=== PATIENT | female | born 1985 | race Caucasian/White ===

== ENCOUNTER 2020-12-27 11:39 | Emergency (ER) | payer OTHER, SELFPAY ==
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
[2020-12-27 12:07] VITALS: BP 118/73; PULSE 92; RESP 19; TEMP 36.6; O2SAT 98; BMI 28.3
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
[2020-12-27] MEDS: Acetaminophen 325 MG TABLET 975 MG PO (13:58)
[2020-12-27] MEDS: Cyclobenzaprine HCl 10 MG TABLET PO (14:58)
[2020-12-27 15:30] VITALS: RESP 18
== END 2020-12-27 15:31 | disposition home or self-care (01) ==
PROVIDERS: Emergency Provider Emergency Medicine; PCP Internal Medicine
DX: S93.401A Sprain of unspecified ligament of right ankle, initial encounter (principal); S06.0X0A Concussion without loss of consciousness, initial encounter; G44.309 Post-traumatic headache, unspecified, not intractable; M54.2 Cervicalgia; M79.604 Pain in right leg; V43.52XA Car driver injured in collision with other type car in traffic accident, initial encounter; Y93.9 Activity, unspecified; Y92.410 Unspecified street and highway as the place of occurrence of the external cause; Y99.9 Unspecified external cause status; Z79.899 Other long term (current) drug therapy
CPT/HCPCS: 29515; 70450; 72125; 73600; 73620; 99284

== ENCOUNTER 2022-10-27 17:57 | Emergency (ER) | payer OTHER, SELFPAY ==
--- NOTE | ~2022-10-27 | XR_ITS ---
EXAMINATION: XR CHEST CLINICAL INFORMATION: Productive cough. COMPARISON: Chest radiograph 05/27/2018. TECHNIQUE: 2 views of the chest were obtained. FINDINGS: Normal appearance of the cardiomediastinal silhouette. Chronic predominantly central bronchial wall thickening. No new focal airspace opacity, pleural effusion or pneumothorax. No acute osseous findings. XR/XR chest 2V IMPRESSION: Chronic bronchial wall thickening which could be seen with a small airways process such as asthma or bronchitis.
[2022-10-27 18:03] VITALS: BP 121/82; PULSE 110; RESP 18; TEMP 36.7; O2SAT 97; BMI 27.3
--- NOTE | 2022-10-27 18:04 | ED_ITS ---
HPI - General Adult General Chief complaint: Upper Respiratory Symptoms Stated complaint: pneumonia, asthma, sob Time Seen by Provider: 10/27/22 18:18 Source: patient Mode of arrival: ambulatory Limitations: no limitations History of Present Illness HPI narrative: 36 yo female with history of asthma, anxiety, GERD here with 3 days of cough, wheezing despite using her albuterol nebulizer at home. No chest pain, fevers, leg swelling/leg pain. +tobacco smoking No recent travel/surgeries/OCP use. No history of hospitalizations or intubations. Using symbicort, albuterol nebulizer prn at home. Related Data Previous Rx's Medication Instructions Recorded ipratropium bromide 17 2 puff inhalation QID #12.9 grams 08/18/20 mcg/actuation HFA aerosol inhaler (Atrovent HFA) albuterol sulfate 90 mcg/actuation 2 puff inhalation Q6H PRN 09/10/20 aerosol inhaler (ProAir HFA) shortness of breath or wheezing #8.5 grams budesonide-formoterol HFA 160 2 puff PO BID #30.6 ea 04/13/22 mcg-4.5 mcg/actuation aerosol inhaler (Symbicort) omeprazole 40 mg capsule,delayed 40 mg PO DAILY #90 caps 04/13/22 release cetirizine 10 mg tablet 10 mg PO DAILY #30 tabs 09/07/22 albuterol sulfate 2.5 mg/3 mL 2.5 mg (3 mL) inhalation Q4H PRN 10/27/22 (0.083 %) solution for nebulization shortness of breath or wheezing #90 mL prednisone 20 mg tablet 60 mg PO DAILY #12 tabs 10/27/22 Allergies Allergy/AdvReac Type Severity Reaction Status Date / Time Sulfa (Sulfonamide Allergy Severe SHORTNESS Verified 09/10/20 13:19 Antibiotics) OF BREATH, [SULFA(SULFONAMIDE SWELLING ANTIBIOTICS)] ALL OVER, anaphylaxis bee pollen [BEE STINGS] Allergy Unknown SWELLING Verified 09/10/20 13:19 mushroom [MUSHROOM] Allergy Unknown ANAPHYLAXIS Verified 09/10/20 13:19 RAISIN Allergy Intermediate HIVES, Uncoded 09/10/20 13:19 THROAT SWELLING bees Allergy Unknown anaphylaxis Uncoded 09/10/20 13:19 mushrooms Allergy Unknown anaphylaxis Uncoded 09/10/20 13:19 raisins Allergy Unknown anaphylaxis Uncoded 09/10/20 13:19 Review of Systems Review of Systems: Yes all other systems are reviewed and are negative Constitutional: Constitutional: Reports no additional constitutional complaints, Denies body ache(s), Denies chills, Denies fever(s), Denies headache(s) and Denies weakness Eyes: Eyes: Reports no additional eye complaints and Denies change in vision ENT: Reports system reviewed and no additional complaints, except as documented, Denies dizziness, Denies headache(s), Denies nasal congestion, Denies nasal discharge and Denies neck pain Cardiovascular: Cardiovascular: Reports no additional cardiovascular complaints, Denies chest pain, Denies leg edema and Denies dyspnea Respiratory: Respiratory: Reports no additional respiratory complaints, Reports cough, Denies dyspnea and Reports wheezing Gastrointestinal: Gastrointestinal: Reports no additional gastrointestinal complaints, Denies abdominal pain, Denies diarrhea, Denies nausea and Denies vomiting Genitourinary: Genitourinary: Reports no additional female genitourinary c omplaints and Denies urinary incontinence Musculoskeletal: Musculoskeletal: Reports no additional musculoskeletal complaints, Denies back pain, Denies arthralgias, Denies joint swelling, Denies neck pain, Denies numbness and Denies tingling Integumentary/Breasts: Skin/Breast: Reports system reviewed and no additional complaints, except as docu and Denies rash Neurologic: Reports system reviewed and no additional complaints, except as documented, Denies dizziness, Denies headache(s), Denies numbness, Denies tingling and Denies weakness Allergic/Immunologic: Allergic/Immunologic: Reports wheezing PMFSH Past Medical History Attestation statement: The following information was validated with the patient. Source: old records reviewed and nursing notes reviewed Medical History Asthma Surgical History Tubal ligation status Social History Social History Advance Directives: No Advance Directives Information Provided: No Physical Exam ED Vital Signs: Vital Signs - 24 hr 10/27/22 18:03 10/27/22 19:57 Temperature 98.1 F Pulse Rate 110 H 87 Respiratory Rate 18 18 Blood Pressure 121/82 Pulse Oximetry 97 Oxygen Delivery Method Room Air BMI result Body Mass Index 27.3 Const General: cooperative, healthy appearing, comfortable and no acute distress Orientation/consciousness: patient oriented x3 Limitations: no limitations HENMT Head: Yes normal to inspection Ears: hearing grossly normal bilaterally and TM's normal bilaterally Throat: Yes posterior oropharynx normal, Yes tonsils normal and Yes uvula midline Eyes General: appearance normal, both eyes and all related structures Pupils: Equal, round and reactive pupils present Neck Neck: Yes normal visual inspection, Yes full ROM, Yes no lymphadenopathy and Yes no meningeal signs Chest Chest palpation & inspection: normal inspection of the chest Resp Effort & Inspection: normal respiratory effort Auscultation: wheezes Cardio Rate: tachycardic (110) Rhythm: regular rhythm Peripheral pulses: Peripheral pulses 2+ throughout GI Inspection: Yes normal to inspection Skin General skin exam: no rashes or lesions noted Neuro General: patient oriented x3, moves all extremities and no meningeal signs Cranial nerves: Yes Equal, round and reactive pupils present Cognition (Neuro): normal cognition Gait exam (Neuro): Normal gait present Extrem General: Yes normal to inspection, Yes no pedal edema and Yes no calf tenderness Course Course Course Narrative: This is a rapid medical exam: Additional HPI, ROS, PE not included below will be deferred to primary provider. Patient is a 36-year-old female with history of asthma presenting to the emergency department with complaint of productive cough and shortness of breath for the past several days. Reports chills. Has used nebulizer with some relief. Very minimal wheezing on auscultation. Plan: flu/covid, CXR Reevaluation(s) Reevaluation #1: 1900-sign out to get HA pending re-eval psot treatment Reevaluation #2: Wheezing decreased following treatment, patient reports symptomatic improvement. Covid and flu negative, chronic bronchial wall thickening on CXR. Time: 20:07 Medications Administered Discontinued Medications Generic Name Dose Route Start Last Admin Trade Name Freq PRN Reason Stop Dose Admin Albuterol/Ipratropium 3 ml 10/27/22 18:43 10/27/22 19:54 Albuterol/Iprat 2.5/0.5mg 3 Ml Ampul.Neb INHALE 10/27/22 18:44 3 ml ONCE ONE Administration Prednisone 60 mg 10/27/22 18:43 10/27/22 18:49 Prednisone 20 Mg Tablet PO 10/27/22 18:44 60 mg ONCE ONE Administration Medical Decision Making Medical Decision Making MDM Narrative: 36 yo female with history of asthma, tobacco use here with complaints of cough, wheezing x 3 despite using albuterol nebulizer at home. No chest pain, fevers, chills, leg swelling/leg pain. On arrival saturations stable, oxygen normal. +wheezing throughout with frequent cough. will check CXR, covid/flu testing Will give duoneb, oral pred Differential Diagnosis Differential Diagnoses: The differential diagnosis associated with the presentation includes asthma exacerbation viral syndrome influenza low concern for PE-no clinical findings concern for DVT, no hypoxia or tachypnea, no risk factors Lab Data MDM Lab Attestation statement: I reviewed the patient's lab results. Neg Covid/flu Labs: Lab Results 10/27/22 10/27/22 Range/Units 18:23 18:23 COVID-19 (ZAMZAM) Negative (Negative) COVID-19 Clin Com See Note Influenza Type A (MADDI) Negative (Negative) Influenza Type B (MADDI) Negative (Negative) Influenza A & B Note See Note Independent Interpretation I performed an independent interpretation of an: Plain X-Ray Interpretation: II in dependently reviewed the xray and agree with the rad report Radiology Impression Discussion of test interpretation with radiology: I have reviewed the radiologist's reading. Radiologist Impression: TECHNIQUE: 2 views of the chest were obtained. FINDINGS: Normal appearance of the cardiomediastinal silhouette. Chronic predominantly central bronchial wall thickening. No new focal airspace opacity, pleural effusion or pneumothorax. No acute osseous findings. XR/XR chest 2V IMPRESSION: Chronic bronchial wall thickening which could be seen with a small airways process such as asthma or bronchitis. ? External Record Review External record reviewed: Inpatient record, Office record and Outpatient record Prescription Management I considered prescription management with: Other Discharge Plan Discharge Clinical Impression: Asthma exacerbation Patient Disposition: Home, Self-Care Instructions: Asthma (ED), How to Use a Nebulizer (ED) Additional Instructions: Your covid/flu testing are negative increase fluids, rest start prednisone tomorrow continue your asthma medications follow-up with your PCP as needed Prescriptions: New prednisone 20 mg tablet 60 mg PO DAILY Qty: 12 0RF albuterol sulfate 2.5 mg /3 mL (0.083 %) solution for nebulization 2.5 mg inhalation Q4H PRN (Reason: shortness of breath or wheezing) Qty: 90 0RF No Action Atrovent HFA 17 mcg/actuation HFA aerosol inhaler 2 puff inhalation QID Qty: 12.9 2RF omeprazole 40 mg capsule,delayed release(DR/EC) 40 mg PO DAILY Qty: 90 3RF budesonide-formoterol [Symbicort] 160-4.5 mcg/actuation HFA aerosol inhaler 2 puff PO BID Qty: 30.6 4RF cetirizine 10 mg tablet 10 mg PO DAILY Qty: 30 11RF albuterol sulfate [ProAir HFA] 90 mcg/actuation HFA aerosol inhaler 2 puff inhalation Q6H PRN (Reason: shortness of breath or wheezing) Qty: 8.5 2RF Referrals: Hector Francois MD [Primary Care Provider] - 1 week
[2022-10-27] MEDS: predniSONE 20 MG TABLET 60 MG PO (18:49)
[2022-10-27 18:51] LABS: IDNOW Serial# BCCEAD1C; Influenza A Negative (Negative); Influenza B2 Negative (Negative)
[2022-10-27 18:52] LABS: COVID-19 Test Negative (Negative); IDNOW Serial# 08D9AD1C
[2022-10-27] MEDS: Albuterol/Iprat 2.5/0.5MG 3 ML AMPUL.NEB INHALE (19:54)
[2022-10-27 19:57] VITALS: PULSE 87; RESP 18; O2SAT 98
[2022-10-27 20:25] VITALS: BP 116/77; PULSE 111; RESP 14; TEMP 36.7; O2SAT 97
--- NOTE | 2022-10-27 20:27 | PC.NURSE ---
Pt aox4 resting at the bedside. Completed duoneb tx with RT. No apparent distress noted. VSS. Reports no pain. Discharge instructions reviewed with pt. Pt verbalizes understanding.
== END 2022-10-27 20:28 | disposition home or self-care (01) ==
PROVIDERS: Registered Nurse Emergency; Emergency Provider Emergency Medicine; PCP Family Medicine
DX: J45.901 Unspecified asthma with (acute) exacerbation (principal); Z20.822 Contact with and (suspected) exposure to COVID-19
CPT/HCPCS: 71046; 87502; 87635; 94640; 99284; 99285

== ENCOUNTER 2022-11-13 14:13 | Outpatient (AMB) | payer OTHER, SELFPAY ==
--- NOTE | 2022-11-13 14:57 | AM.OFFWIN_ITS ---
Intake Vital Signs 11/13/22 15:06 Weight 153 lb BP 120/84 Blood Pressure Location Lt brachial Position Sitting Pulse 98 Pulse Source Pulse Oximeter Temp 97.6 F Temp Source Temporal Artery Scan Pulse Oximetry (%) 100 Oxygen Delivery Method Room Air Intake Visit Reasons: Left ankle swelling (3 days) [phone] Intake Note: Patient here for left leg swelling that has been present for about 2 days. No known injuries. Allergies Sulfa (Sulfonamide Antibiotics) [SULFA(SULFONAMIDE ANTIBIOTICS)] Allergy (Severe, Verified 11/13/22 15:27) SHORTNESS OF BREATH, SWELLING ALL OVER, anaphylaxis bee pollen [BEE STINGS] Allergy (Unknown, Verified 11/13/22 15:27) SWELLING mushroom [MUSHROOM] Allergy (Unknown, Verified 11/13/22 15:27) ANAPHYLAXIS RAISIN Allergy (Intermediate, Uncoded 11/13/22 15:27) HIVES, THROAT SWELLING bees Allergy (Unknown, Uncoded 11/13/22 15:27) anaphylaxis mushrooms Allergy (Unknown, Uncoded 11/13/22 15:27) anaphylaxis raisins Allergy (Unknown, Uncoded 11/13/22 15:27) anaphylaxis Medication List - Last Reconciled 11/13/22 by Chucky Church MD albuterol sulfate 2.5 mg (3 mL) inhalation Q4H PRN albuterol sulfate 90 mcg/actuation (ProAir HFA) 2 puffs inhalation Q6H PRN Do you need a note to return to daycare/school/sports/work: No HPI Left ankle swelling (3 days) [phone] HPI Details 36-year-old female presents to the office for a sick visit. Patient is complaining of pain in the left ankle. Symptoms started a few days ago. Difficulty while walking and bearing weight on the left leg. [facility] Medical History Asthma Surgical History Tubal ligation status Physical Exam Vital Signs: Last Vital Signs Temp 97.6 F 11/13/22 15:06 Pulse 98 11/13/22 15:06 BP 120/84 11/13/22 15:06 Pulse Ox 100 11/13/22 15:06 Oxygen Delivery Method Room Air 11/13/22 15:06 Extrem Other: Left leg: Ankle: Swelling present. Pain on flexion and extension of the ankle. Assessment & Plan Assessment & Plan (1) Left ankle sprain: Code(s): S93.402A - Sprain of unspecified ligament of left ankle, initial encounter Plan X-ray images personally reviewed by me. Shawn wrap provided. Meloxicam prescribed. If symptoms not better to follow-up here. Orders: Orders XR ankle LT min 3V Today S93.402A - Sprain of unspecified ligament of left ankle, initial encounter Coding Level of Care Code Est Pt Level 4 (56947) Diagnoses Left ankle sprain S93.402A
[2022-11-13 15:06] VITALS: BP 120/84; PULSE 98; TEMP 36.4; O2SAT 100
== END 2022-11-13 15:59 | disposition home or self-care (01) ==
PROVIDERS: PCP Family Medicine; Visit Provider Internal Medicine
DX: S93.402A Sprain of unspecified ligament of left ankle, initial encounter (principal)
CPT/HCPCS: 99214

== ENCOUNTER 2022-11-13 15:28 | Outpatient (REF) | payer OTHER, SELFPAY ==
--- NOTE | ~2022-11-13 | XR_ITS ---
EXAMINATION: XR ANKLE, LEFT CLINICAL INFORMATION: Sprain of unspecified ligament of left ankle, initial encounter COMPARISON: None available. TECHNIQUE: AP, lateral, and mortise views of the left ankle. FINDINGS: No fracture. Alignment is anatomic. No erosions. Joint spaces are maintained. No joint effusion. Mild soft tissue swelling. XR/XR ankle LT min 3V IMPRESSION: Mild soft tissue swelling. No fracture.
== END 2022-11-13 15:29 | disposition home or self-care (01) ==
LOC: HO.HMGCX 15:28
PROVIDERS: Visit Provider Internal Medicine
DX: S93.402A Sprain of unspecified ligament of left ankle, initial encounter (principal)
CPT/HCPCS: 73610

== ENCOUNTER 2023-01-13 13:09 | Outpatient (AMB) | payer OTHER, SELFPAY ==
--- NOTE | 2023-01-13 13:10 | AM.OFFWIN_ITS ---
Intake Vital Signs 01/13/23 13:13 Height 5 ft 3 in Weight 65.771 kg BMI 25.7 BP 120/80 Blood Pressure Location Rt brachial Position Sitting Pulse 90 Pulse Source Pulse Oximeter Temp 97.8 F Temp Source Temporal Artery Scan Pulse Oximetry (%) 99 Oxygen Delivery Method Room Air Intake Visit Reasons: EP, Left hand swelling Intake Note: Pt is here today c/o Lt hand swollen due to hitting it on something last night Allergies Sulfa (Sulfonamide Antibiotics) [SULFA(SULFONAMIDE ANTIBIOTICS)] Allergy (Severe, Verified 01/13/23 13:10) SHORTNESS OF BREATH, SWELLING ALL OVER, anaphylaxis bee pollen [BEE STINGS] Allergy (Unknown, Verified 01/13/23 13:10) SWELLING mushroom [MUSHROOM] Allergy (Unknown, Verified 01/13/23 13:10) ANAPHYLAXIS RAISIN Allergy (Intermediate, Uncoded 01/13/23 13:10) HIVES, THROAT SWELLING bees Allergy (Unknown, Uncoded 01/13/23 13:10) anaphylaxis mushrooms Allergy (Unknown, Uncoded 01/13/23 13:10) anaphylaxis raisins Allergy (Unknown, Uncoded 01/13/23 13:10) anaphylaxis HPI HPI Comments History of Present Illness Details 1335 This is a 37 yo f hx of asthma presenting w/ swelling to top of left hand since last night. Thinks she hit it while spinning outside on a holoween promp. Reports pain w/ ROM of all fingers. Denies fevers,chills, numbness, tingling, sob, cp PE w/ swelling to the dorsal aspect of left hand particularly over the 5th metacarpal with associated tenderness to palpation overlying all metacarpals on the left hand. Normal capillary refill to bilateral upper extremity digits. Normal sensation distally. Limited range of motion to fingers 4 and 5 on left side secondary to pain. Fingers 1 through 3 on left side with full range of motion. No wrist drop. No overlying skin changes. Likely sprain, strain or fracture dislocation. Other differentials include inflammatory arthritis, gout. Unlikely neurovascular compromise, threat to [place], arterial or venous occlusion Plan x-ray. Will discharge with prednisone and naproxen. Educated patient on diagnosis and treatment plan, answered all question, patient verbalizes understanding. At this time patient will be discharged home, advised to return with new or worsening symptoms. Educated on worrisome signs and symptoms and when to return. At this time I feel comfortable discharge home. [facility] Medical History Asthma Surgical History Tubal ligation status Review of Systems Const Details: Constitutional : No Weight loss, No Fever, No Chills, No Fatigue, No Malaise ENT/Mouth : No sore throat, No Rhinorrhea Eyes: No Eye Pain, No Swelling, No Redness Cardiovascular : No Chest Pain, No SOB, No Dyspnea on Exertion, No Orthopnea, No Edema, No Palpitations Respiratory : No Cough, No Sputum, No Wheezing Gastrointestinal : No Nausea, No Vomiting, No Diarrhea, No Constipation, No abdominal Pain, No Hematochezia, No Melena Genitourinary : No Dysuria, No Urinary Frequency, No Hematuria, Musculoskeletal : + joint pain, No Myalgias, + Joint Swelling Skin : No Skin Lesions, No rash Neuro : No Weakness, No Numbness, No Dizziness, No Headache Psych : No Anxiety/Panic, No Depression All other systems reviewed and are negative All systems reviewed & are unremarkable except as noted in HPI and below Physical Exam Vital Signs: Last Vital Signs Temp 97.8 F 01/13/23 13:13 Pulse 90 01/13/23 13:13 BP 120/80 01/13/23 13:13 Pulse Ox 90 L 01/13/23 13:13 Oxygen Delivery Method Room Air 01/13/23 13:13 BMI result Body Mass Index 25.7 vss Appearance: Alert.? Oriented X3.? No acute distress.? Head: Normocephalic, atraumatic, no step-offs or deformities Eyes: Pupils equal, round and reactive to light.? CVS: Pulses normal.? Respiratory: No respiratory distress.? Skin: Skin warm and dry.? Normal skin color.? Normal skin turgor.? Extremities: No lower extremity edema.? No calf ttp. 5/5 strength to bilateral upper and lower extremities +swelling to the dorsal aspect of left hand particularly over the 5th metacarpal with associated tenderness to palpation overlying all metacarpals on the left hand. Normal capillary refill to bilateral upper extremity digits. Normal sensation distally. Limited range of motion to fingers 4 and 5 on left side secondary to pain. Fingers 1 through 3 on left side with full range of motion. No wrist drop. No overlying skin changes. Neuro: Oriented X 3.? No motor deficit.? No sensory deficit. Assessment & Plan Assessment & Plan (1) Hand pain, left: Code(s): M79.642 - Pain in left hand Plan Take your medications as prescribed. If you were prescribed antibiotics today, it is important that you take your medication to their entirety, do not skip any doses, do not finish them early. Follow-up with your primary care provider this week. Return to the emergency department with new or worsening symptoms. Such as fevers, chills, chest pain, shortness of breath, nausea, vomiting, dizziness, headache, vision changes, lethargy In case of emergency call 911 Orders: Orders XR hand LT 2V Today M79.642 - Pain in left hand Medications: New prednisone 40 mg (2 x 20 mg) PO DAILY 5 days 10 tabs 0RF naproxen 500 mg PO BID PRN 14 tabs 0RF pain Coding Level of Care Code Est Pt Level 3 (11137) Diagnoses Hand pain, left M79.642
[2023-01-13 13:13] VITALS: BP 120/80; PULSE 90; TEMP 36.6; O2SAT 99; BMI 25.7
== END 2023-01-13 14:58 | disposition home or self-care (01) ==
PROVIDERS: PCP Family Medicine; Visit Provider Physician Assistant
DX: M79.642 Pain in left hand (principal)
CPT/HCPCS: 99051; 99213

== ENCOUNTER 2023-01-13 13:32 | Outpatient (REF) | payer OTHER, SELFPAY ==
--- NOTE | ~2023-01-13 | XR_ITS ---
EXAMINATION: XR HAND, LEFT CLINICAL INFORMATION: Pain COMPARISON: None available. TECHNIQUE: Three views of the left hand. FINDINGS: There is deformity of the distal aspect of the fifth metacarpal. This is consistent with a mildly impacted angulated distal metaphyseal fracture. There is overlying soft tissue swelling. No other fracture or subluxation demonstrated. XR/XR hand LT 2V IMPRESSION: No history of trauma provided. Deformity consistent with a mildly impacted angulated distal fifth metacarpal fracture The articular surface is grossly intact
== END 2023-01-13 13:33 | disposition home or self-care (01) ==
LOC: HO.HMGCX 13:32
PROVIDERS: PCP Family Medicine; Visit Provider Physician Assistant
DX: M79.642 Pain in left hand (principal)
CPT/HCPCS: 73120

== ENCOUNTER 2023-01-15 14:51 | Outpatient (AMB) | payer OTHER, SELFPAY ==
--- NOTE | 2023-01-15 14:54 | A.OFFVIS_ITS ---
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 Patient reports having throbbing pain that goes up to her elbow. She states that she punched a wall. Having some tingling on her on the ring finger and pinky finger. 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 The patient presented to the Walk-in clinic on 01/13/2023 status post hitting her left hand on something while she was spinning on a [employer] prop. On 01/12/2023. X-rays of the left hand were obtained. While in the office today the patient reports having a throbbing pain that radiates up to her left elbow. She claims to have some tingling on the ring and pinky digits. She confirms she injured the hand by punching the wall. [facility] Medical History Asthma Surgical History Tubal ligation status Social History (Updated 01/15/23 @ 15:00 by Ashlee Rodriguez) Alcohol intake: current Alcohol intake frequency: does not drink Patient Tobacco Use Status: Current everyday Tobacco user Current occupation: right hand dominant Review of Systems Const All systems reviewed & are unremarkable except as noted in HPI and below Physical Exam Vital Signs: BMI result Body Mass Index 25.7 Const General: cooperative and no acute distress Orientation/consciousness: patient oriented x3 Resp Effort & Inspection: normal respiratory effort and able to speak in complete sentences Cardio Peripheral pulses: Peripheral pulses 2+ throughout Skin General skin exam: no rashes or lesions noted Neuro General: patient oriented x3 Extrem Other: Left hand: Ecchymosis on the dorsal aspect of the middle, ring, and little digits. Able to flex and extend all digits. Lacking 2 cm from making a closed fist with ring and little digits. Sensation intact. Capillary refill is brisk. Office Procedures Casting/Splints 13773-Axut/Wrist Cast Application Procedure code (CPT) selection complete Fracture Care Fracture Billing Code: Fracture Billing Code Assessment & Plan Assessment & Plan (1) Fracture of fifth metacarpal bone of left hand: Code(s): S62.307A - Unspecified fracture of fifth metacarpal bone, left hand, initial encounter for closed fracture Qualifiers: Encounter type: initial encounter Fracture alignment: nondisplaced Fracture type: closed Metacarpal location: unspecified portion of metacarpal Qualified Code(s): S62.307A - Unspecified fracture of fifth metacarpal bone, left hand, initial encounter for closed fracture Plan Ms. Ballard is a 37-year-old right hand dominant female who presents in the office today, as a new patient, for an evaluation of left hand pain. The patient presented to the Walk-in clinic on 01/13/2023 status post hitting her left hand on something while she was spinning on a [employer] prop. On 01/12/2023. X-rays of the left hand were obtained. While in the office today the patient reports having a throbbing pain that radiates up to her left elbow. She claims to have some tingling on the ring and pinky digits. She confirms she injured the hand by punching the wall. The patient was placed in a ulnar gutter cast, custom made, while in the office today. She will follow up in 4 weeks for repeat x-rays with cast off, or sooner if needed. X-rays of the left hand, obtained on 01/13/2023, revealed: 1. No history of trauma provided. 2. Deformity consistent with a mildly impacted angulated distal fifth metacarpal fracture 3. The articular surface is grossly intact Patient Instructions: Scribed for Olivia Harris PA-C by Chanel Alvarado medical care administrator, on 01/15/2023 at 3:09 pm, EST. Coding Level of Care Code New Pt Level 4 (21372) Diagnoses Closed nondisplaced fracture of fifth metacarpal bone of left hand, unspecified portion of metacarpal, initial encounter S62.307A Encounter type: initial encounter Fracture alignment: nondisplaced Fracture type: closed Metacarpal location: unspecified portion of metacarpal CPT Codes Casting - CPT: 84565-Oaeh/Wrist Cast Application ([id number]) Fracture Care - Fracture Billing Code: Fracture Billing Code ([id number])
[2023-01-15 15:00] VITALS: BMI 25.7
== END 2023-01-15 15:47 | disposition home or self-care (01) ==
PROVIDERS: PCP Family Medicine; Visit Provider Physician Assistant
DX: S62.307A Unspecified fracture of fifth metacarpal bone, left hand, initial encounter for closed fracture (principal); W22.09XA Striking against other stationary object, initial encounter
CPT/HCPCS: 26600; 99204

== ENCOUNTER → 2023-01-15 14:51 | Outpatient (BNVA) | payer OTHER, SELFPAY | PROVIDERS: PCP Family Medicine; Visit Provider Physician Assistant | DX: S62.307A Unspecified fracture of fifth metacarpal bone, left hand, initial encounter for closed fracture (principal) | CPT/HCPCS: 26600 ==

== ENCOUNTER 2023-02-06 10:08 | Outpatient (REF) | payer OTHER, SELFPAY | END 2023-02-06 10:09 | disposition home or self-care (01) | LOC: HO.HOSX 10:08 | PROVIDERS: Visit Provider Physician Assistant | DX: Z13.89 Encounter for screening for other disorder (principal) ==

== ENCOUNTER 2023-02-13 09:31 | Outpatient (AMB) | payer OTHER, SELFPAY ==
--- NOTE | 2023-02-13 09:44 | A.OFFVIS_ITS ---
Intake Vital Signs 02/13/23 09:46 Height 5 ft 3 in Weight 145 lb BMI 25.7 Intake Visit Reasons: OV- Lt 5th Metacarpal fx/ xrays Intake Note: Kailey is a 37 year right hand dominant female who present today for a evaluation of her left wrist/hand, DOI 01/12/23. Patient reports having tenderness and pain. Denies numbness and tingling. Allergies Sulfa (Sulfonamide Antibiotics) [SULFA(SULFONAMIDE ANTIBIOTICS)] Allergy (Severe, Verified 02/13/23 09:45) SHORTNESS OF BREATH, SWELLING ALL OVER, anaphylaxis bee pollen [BEE STINGS] Allergy (Unknown, Verified 02/13/23 09:45) SWELLING mushroom [MUSHROOM] Allergy (Unknown, Verified 02/13/23 09:45) ANAPHYLAXIS RAISIN Allergy (Intermediate, Uncoded 01/13/23 13:10) HIVES, THROAT SWELLING bees Allergy (Unknown, Uncoded 01/13/23 13:10) anaphylaxis mushrooms Allergy (Unknown, Uncoded 01/13/23 13:10) anaphylaxis raisins Allergy (Unknown, Uncoded 01/13/23 13:10) anaphylaxis HPI OV- Lt 5th Metacarpal fx/ xrays HPI Details 37-year-old right hand dominant female jessica guy presents in the office today for a follow up of a left hand 5th metacarpal fracture, which occurred on 01/12/2023 status post hitting her left hand on something while she was spinning on a [employer] prop. The patient reports having tenderness and pain. She denies numbness or tingling. [facility] Medical History Asthma Surgical History Tubal ligation status Alcohol intake: current Alcohol intake frequency: does not drink Patient Tobacco Use Status: Current everyday Tobacco user Current occupation: right hand dominant Review of Systems Const All systems reviewed & are unremarkable except as noted in HPI and below Physical Exam Vital Signs: BMI result Body Mass Index 25.7 Const General: cooperative, healthy appearing and no acute distress Resp Effort & Inspection: normal respiratory effort and able to speak in complete sentences Cardio Rate: regular rate Peripheral pulses: Peripheral pulses 2+ throughout GI Palpation (GI): Soft to palpation Skin Lesions: no lesions Rashes: no rashes Extrem Other: Left hand: Normal to inspection. No ecchymosis, erythema, or edema. Tenderness to palpation over the 5th metacarpal head at the fracture site. Lacking about 2 cm from making a closed fist with the little finger. Sensation intact. Capillary refill is brisk. Office Procedures Casting/Splints 62107-Ggsp/Wrist Cast Application Procedure code (CPT) selection complete Assessment & Plan Assessment & Plan (1) Fracture of fifth metacarpal bone of left hand: Code(s): S62.307A - Unspecified fracture of fifth metacarpal bone, left hand, initial encounter for closed fracture Qualifiers: Encounter type: initial encounter Fracture alignment: nondisplaced Fracture type: closed Metacarpal location: unspecified portion of metacarpal Qualified Code(s): S62.307A - Unspecified fracture of fifth metacarpal bone, left hand, initial encounter for closed fracture Plan Ms. Ballard is a 37-year-old right hand dominant female who presents in the office today for a follow up of a left hand 5th metacarpal fracture, which occurred on 01/12/2023 status post hitting her left hand on something while she was spinning on a [employer] prop. The patient reports having tenderness and pain. She denies numbness or tingling. The patient was placed in another ulnar gutter cast, custom made, while in the office today. She will remain under the restrictions of no lifting greater than a coffee cup or cell phone. Follow up will be in 2 weeks with repeat x-rays, or sooner if needed. X-rays of the left hand which were obtained while in the office today and were reviewed by me, Olivia Harris PA-C, revealed routine healing of a left 5th metacarpal fracture. Orders: Orders XR hand LT min 3V Today M79.643 - Pain in unspecified hand Patient Instructions: Scribed for Olivia Harris PA-C by Chanel Alvarado medical records clerk, on 02/13/2023 at 9:33 am, EST. Coding Level of Care Code Global (65730) Diagnoses Closed nondisplaced fracture of fifth metacarpal bone of left hand, unspecified portion of metacarpal, initial encounter S62.307A Encounter type: initial encounter Fracture alignment: nondisplaced Fracture type: closed Metacarpal location: unspecified portion of metacarpal CPT Codes Casting - CPT: 30455-Bucc/Wrist Cast Application ([id number])
[2023-02-13 09:46] VITALS: BMI 25.7
== END 2023-02-13 10:31 | disposition home or self-care (01) ==
PROVIDERS: PCP Family Medicine; Visit Provider Physician Assistant
DX: S62.307D Unspecified fracture of fifth metacarpal bone, left hand, subsequent encounter for fracture with routine healing (principal)
CPT/HCPCS: 29075; 99024

== ENCOUNTER 2023-02-13 12:27 | Outpatient (REF) | payer OTHER, SELFPAY ==
--- NOTE | ~2023-02-13 | XR_ITS ---
EXAMINATION: XR HAND, LEFT CLINICAL INFORMATION: Pain. COMPARISON: Prior radiographs, most recently 01/13/2023. TECHNIQUE: PA, lateral, and oblique views of the left hand. FINDINGS: Bony mineralization is normal. There is a small minus variance. There is stable alignment of a mildly angulated, apex dorsal boxers-type fracture of the left fifth metacarpal neck. There is mild periosteal callus formation. No dislocation is seen. The proximal and distal carpal rows are intact. No focal soft tissue swelling, gas or foreign body is seen. XR/XR hand LT min 3V IMPRESSION: There is stable alignment of a mildly angulated boxers-type fracture of the left fifth metacarpal bone. There is mild periosteal callus formation.
== END 2023-02-13 12:28 | disposition home or self-care (01) ==
LOC: HO.HOSX 12:27
PROVIDERS: Visit Provider Physician Assistant
DX: S62.307D Unspecified fracture of fifth metacarpal bone, left hand, subsequent encounter for fracture with routine healing (principal)
CPT/HCPCS: 73130

== ENCOUNTER 2023-02-26 11:08 | Outpatient (AMB) | payer OTHER, SELFPAY ==
--- NOTE | 2023-02-26 11:17 | A.OFFVIS_ITS ---
Intake Vital Signs 02/26/23 11:18 Height 5 ft 3 in Weight 143 lb BMI 25.3 Intake Visit Reasons: OV- Lt 5th Metacarpal fx/ xrays Intake Note: Kailey 37 yr old female presents today for her follow up visit for her fracture of fifth metacarpal bone of left hand 01/12/23. Cast removed and xrays updated. States she feels a little stiff due to use of cast however she is dong well. Allergies Sulfa (Sulfonamide Antibiotics) [SULFA(SULFONAMIDE ANTIBIOTICS)] Allergy (Severe, Verified 02/26/23 11:24) SHORTNESS OF BREATH, SWELLING ALL OVER, anaphylaxis bee pollen [BEE STINGS] Allergy (Unknown, Verified 02/26/23 11:24) SWELLING mushroom [MUSHROOM] Allergy (Unknown, Verified 02/26/23 11:24) ANAPHYLAXIS RAISIN Allergy (Intermediate, Uncoded 02/26/23 11:24) HIVES, THROAT SWELLING bees Allergy (Unknown, Uncoded 02/26/23 11:24) anaphylaxis mushrooms Allergy (Unknown, Uncoded 02/26/23 11:24) anaphylaxis raisins Allergy (Unknown, Uncoded 02/26/23 11:24) anaphylaxis HPI OV- Lt 5th Metacarpal fx/ xrays HPI Details 37-year-old right hand dominant female jessica guy presents in the office today for a follow up of a left hand 5th metacarpal fracture, which occurred on 01/12/2023 status post hitting her left hand on something while she was spinning on a [employer] prop. She reports some stiffness from being in the cast, but overall she states she is doing well. [facility] Medical History Asthma Surgical History Tubal ligation status Social History Alcohol intake: current Alcohol intake frequency: does not drink Patient Tobacco Use Status: Current everyday Tobacco user Current occupation: right hand dominant Review of Systems Const All systems reviewed & are unremarkable except as noted in HPI and below Physical Exam Vital Signs: BMI result Body Mass Index 25.3 Const General: cooperative, healthy appearing and no acute distress Resp Effort & Inspection: normal respiratory effort and able to speak in complete sentences Cardio Rate: regular rate Peripheral pulses: Peripheral pulses 2+ throughout GI Palpation (GI): Soft to palpation Skin Lesions: no lesions Rashes: no rashes Extrem Other: Left hand: Normal to inspection. Mild edema located over the 5th metacarpal. No erythema. No tenderness to palpation. Lacking about ? cm from making a closed fist. Was able to make a closed fist before leaving the office today. Sensation intact. Capillary refill is brisk. Assessment & Plan Assessment & Plan (1) Fracture of fifth metacarpal bone of left hand: Code(s): S62.307A - Unspecified fracture of fifth metacarpal bone, left hand, initial encounter for closed fracture Qualifiers: Encounter type: initial encounter Fracture alignment: nondisplaced Fracture type: closed Metacarpal location: unspecified portion of metacarpal Qualified Code(s): S62.307A - Unspecified fracture of fifth metacarpal bone, left hand, initial encounter for closed fracture Plan Ms. Ballard is a 37-year-old right hand dominant female who presents in the office today for a follow up of a left hand 5th metacarpal fracture, which occurred on 01/12/2023 status post hitting her left hand on something while she was spinning on a [employer] prop. She reports some stiffness from being in the cast, but overall she states she is doing well. 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 She should remain careful for the next 2-3 weeks to avoid falling or any heavy lifting which might result in re-injury to the left hand. She may return to normal activities as tolerated. Follow up will be PRN, or sooner if needed. X-rays of the left hand which were obtained while in the office today and were reviewed by me, Olivia Harris PA-C, revealed routine healing of a left 5th metacarpal fracture. Orders: Orders XR hand LT min 3V Today M79.643 - Pain in unspecified hand Patient Instructions: Scribed for Olivia Harris PA-C by Chanel Alvarado medical claims processor, on 02/26/2023 at 11:11 am, EST. Coding Level of Care Code Global (17835) Diagnoses Closed nondisplaced fracture of fifth metacarpal bone of left hand, unspecified portion of metacarpal, initial encounter S62.307A Encounter type: initial encounter Fracture alignment: nondisplaced Fracture type: closed Metacarpal location: unspecified portion of metacarpal
[2023-02-26 11:18] VITALS: BMI 25.3
== END 2023-02-26 11:28 | disposition home or self-care (01) ==
PROVIDERS: PCP Family Medicine; Visit Provider Physician Assistant
DX: S62.307A Unspecified fracture of fifth metacarpal bone, left hand, initial encounter for closed fracture (principal)
CPT/HCPCS: 99024

== ENCOUNTER 2023-02-26 15:56 | Outpatient (REF) | payer OTHER, SELFPAY | END 2023-02-26 15:57 | disposition home or self-care (01) | LOC: HO.HOSX 15:56 | PROVIDERS: Visit Provider Physician Assistant | DX: S62.307D Unspecified fracture of fifth metacarpal bone, left hand, subsequent encounter for fracture with routine healing (principal); X58.XXXD Exposure to other specified factors, subsequent encounter | CPT/HCPCS: 99212 ==

== ENCOUNTER 2023-03-01 09:17 | Outpatient (REF) | payer OTHER, SELFPAY ==
--- NOTE | ~2023-03-01 | XR_ITS ---
EXAMINATION: XR HAND, LEFT CLINICAL INFORMATION: Pain. COMPARISON: Radiographs dated 02/13/2023 and 01/13/2023. TECHNIQUE: PA, lateral, and oblique views of the left hand. FINDINGS: Bony alignment and mineralization are normal. There is an ulnar minus variance. There is stable alignment of a mildly angulated, apex dorsal boxer's fracture of the left fifth metacarpal neck. There is again mild periosteal callus noted. No dislocation is seen. The proximal and distal carpal rows are intact. No focal soft tissue swelling, gas or foreign body is noted. XR/XR hand LT min 3V IMPRESSION: There is continued stable alignment of a mildly angulated boxer's-type fracture of the left fifth metacarpal neck. Mild periosteal callus formation is again seen.
== END 2023-03-01 09:18 | disposition home or self-care (01) ==
LOC: HO.HOSX 09:17
PROVIDERS: Visit Provider Physician Assistant
DX: M79.642 Pain in left hand (principal)
CPT/HCPCS: 73130

== ENCOUNTER 2023-04-11 14:14 | Outpatient (AMB) | payer OTHER, SELFPAY ==
[2023-04-11 14:23] VITALS: BP 118/70; PULSE 88; TEMP 36.7; O2SAT 98; BMI 26.6
--- NOTE | 2023-04-11 14:23 | AM.OFFWIN_ITS ---
Intake Vital Signs 04/11/23 14:23 Height 5 ft 3 in Weight 150 lb BMI 26.6 BP 118/70 Blood Pressure Location Lt brachial Position Sitting Pulse 88 Pulse Source Pulse Oximeter Temp 98.0 F Temp Source Temporal Artery Scan Pulse Oximetry (%) 98 Oxygen Delivery Method Room Air Intake Visit Reasons: EP, nausea, vomiting (?) Intake Note: pt is here today nausea vomiting started 2 weeks ago Patient Tobacco Use Status: Current everyday Tobacco user Allergies Sulfa (Sulfonamide Antibiotics) [SULFA(SULFONAMIDE ANTIBIOTICS)] Allergy (Severe, Verified 04/12/23 09:48) SHORTNESS OF BREATH, SWELLING ALL OVER, anaphylaxis bee pollen [BEE STINGS] Allergy (Unknown, Verified 04/12/23 09:48) SWELLING mushroom [MUSHROOM] Allergy (Unknown, Verified 04/12/23 09:48) ANAPHYLAXIS RAISIN Allergy (Intermediate, Uncoded 02/26/23 11:24) HIVES, THROAT SWELLING bees Allergy (Unknown, Uncoded 02/26/23 11:24) anaphylaxis mushrooms Allergy (Unknown, Uncoded 02/26/23 11:24) anaphylaxis raisins Allergy (Unknown, Uncoded 02/26/23 11:24) anaphylaxis Do you need a note to return to daycare/school/sports/work: No [facility], [facility] Medical History (Updated 04/11/23 @ 15:18 by Barbara Etienne PA-C) Asthma Surgical History Tubal ligation status Social History Alcohol intake: current Alcohol intake frequency: does not drink Patient Tobacco Use Status: Current everyday Tobacco user Current occupation: right hand dominant Physical Exam Vital Signs: Last Vital Signs Temp 98.0 F 04/11/23 14:23 Pulse 88 04/11/23 14:23 BP 118/70 04/11/23 14:23 Pulse Ox 98 04/11/23 14:23 Oxygen Delivery Method Room Air 04/11/23 14:23 BMI result Body Mass Index 26.6 Results AMB Test Urine AMB Test Urine Negative Last Edit by Shukri Mcdaniel CMA on 04/11/23 14:33 Results Reviewed Results Reviewed: Laboratory Last Values Tst Clinic Negative 04/11/23 14:32 Assessment & Plan Assessment & Plan (1) Nausea & vomiting: Code(s): R11.2 - Nausea with vomiting, unspecified Plan Patient invited to return for clinical evaluation. Orders: Orders AMB HCG Urine Test 04/11/23 Z13.9 - Encounter for screening, unspecified Coding Level of Care Code Left Without Being Seen Diagnoses Nausea & vomiting R11.2
== END 2023-04-11 15:49 | disposition home or self-care (01) ==
PROVIDERS: PCP Family Medicine; Visit Provider Physician Assistant
DX: Z32.02 Encounter for pregnancy test, result negative (principal)
CPT/HCPCS: 81025

== ENCOUNTER 2023-04-12 09:26 | Outpatient (AMB) | payer OTHER, SELFPAY ==
[2023-04-12 09:47] VITALS: BP 120/78; PULSE 94; TEMP 36.4; O2SAT 98; BMI 26.9
--- NOTE | 2023-04-12 09:47 | MHC.OFFWIV ---
Intake Vital Signs 04/12/23 09:47 Height 5 ft 3 in Weight 152 lb BMI 26.9 BP 120/78 Blood Pressure Location Lt brachial Position Sitting Pulse 94 Pulse Source Pulse Oximeter Temp 97.5 F Temp Source Temporal Artery Scan Pulse Oximetry (%) 98 Oxygen Delivery Method Room Air Intake Visit Reasons: EST/nausea (lobby) Intake Note: pt is here today for nausea started 2 weeks ago Patient Tobacco Use Status: Current everyday Tobacco user Allergies Sulfa (Sulfonamide Antibiotics) [SULFA(SULFONAMIDE ANTIBIOTICS)] Allergy (Severe, Verified 04/12/23 09:48) SHORTNESS OF BREATH, SWELLING ALL OVER, anaphylaxis bee pollen [BEE STINGS] Allergy (Unknown, Verified 04/12/23 09:48) SWELLING mushroom [MUSHROOM] Allergy (Unknown, Verified 04/12/23 09:48) ANAPHYLAXIS RAISIN Allergy (Intermediate, Uncoded 02/26/23 11:24) HIVES, THROAT SWELLING bees Allergy (Unknown, Uncoded 02/26/23 11:24) anaphylaxis mushrooms Allergy (Unknown, Uncoded 02/26/23 11:24) anaphylaxis raisins Allergy (Unknown, Uncoded 02/26/23 11:24) anaphylaxis Do you need a note to return to daycare/school/sports/work: No HPI HPI Comments History of Present Illness Details The patient presents to urgent care for evaluation nausea, abdominal bloating, frequent urination symptoms x2 weeks. She states that she has all the symptoms of however has had several negative tests at home. She had her left tube removed secondary to an ectopic and her right tube was tied years ago. She denies abdominal pain. Denies fever chills URI symptoms no chest pain or shortness of breath. [facility] Medical History (Updated 04/11/23 @ 15:18 by Barbara Etienne PA-C) Asthma Surgical History Tubal ligation status Social History Alcohol intake: current Alcohol intake frequency: does not drink Patient Tobacco Use Status: Current everyday Tobacco user Current occupation: right hand dominant Review of Systems Const Denies weakness Eyes Reports no additional complaints ENT Denies dysphagia Card Reports no additional complaints, Denies dyspnea and Denies dyspnea on exertion Resp Denies cough, Denies hemoptysis, Denies dyspnea and Denies dyspnea on exertion GI Denies dysphagia Musc Reports back pain, Denies muscle weakness, Denies numbness and Denies tingling Neuro Denies focal weakness, Denies numbness, Denies tingling, Denies paresthesias and Denies weakness Physical Exam Vital Signs: Last Vital Signs Temp 97.5 F 04/12/23 09:47 Pulse 94 04/12/23 09:47 BP 120/78 04/12/23 09:47 Pulse Ox 98 04/12/23 09:47 Oxygen Delivery Method Room Air 04/12/23 09:47 BMI result Body Mass Index 26.9 Const General: healthy appearing and no acute distress Orientation/consciousness: patient oriented x3 Eyes General: appearance normal, both eyes and all related structures Pupils: Equal, round and reactive pupils present Resp Effort & Inspection: normal respiratory effort and able to speak in complete sentences GI Other: Abdomen, soft nontender Neuro General: patient oriented x3 and Normal light touch and pain sensation Cranial nerves: Yes Equal, round and reactive pupils present Assessment & Plan Assessment & Plan (1) Nausea & vomiting: Code(s): R11.2 - Nausea with vomiting, unspecified Plan The patient is experiencing symptoms of nausea x2 weeks with increased appetite and sensation of bloating. Etiology unclear though she had a test in the office yesterday which was negative. Will send for some basic blood work. Patient was reassured that I suspect nothing serious is going on at this time. No symptoms of UTI. Will send prescription for Zofran. Patient requesting refills of albuterol pump and nebulizer solution Orders: Orders Complete Blood Count no Diff Today R10.9 - Unspecified abdominal pain Comprehensive Met. Panel Today R10.9 - Unspecified abdominal pain Medications: New ondansetron 4 mg PO Q6-8H PRN 10 tabs 0RF nausea and vomiting albuterol sulfate 90 mcg/actuation (Proair Digihaler) 2 inhalations inhalation Q6H 1 ea 0RF albuterol sulfate 0.63 mg (3 mL) inhalation QID PRN 75 mL 0RF shortness of breath or wheezing Coding Level of Care Code Est Pt Level 3 (70932) Diagnoses Nausea & vomiting R11.2
== END 2023-04-12 10:56 | disposition home or self-care (01) ==
PROVIDERS: PCP Family Medicine; Visit Provider Emergency Medicine
DX: R11.2 Nausea with vomiting, unspecified (principal)
CPT/HCPCS: 99213

== ENCOUNTER 2023-04-12 10:21 | Outpatient (REF) | payer OTHER, SELFPAY ==
[2023-04-12 13:36] LABS: Hematocrit 42.5 % (37.0-47.0); Hemoglobin 13.5 g/dl (12.0-16.0); Mean Corpuscular HGB Conc 31.8 g/dl (31.0-35.0); Mean Corpuscular Hemoglobin 27.4 pg (27.0-33.0); Mean Corpuscular Volume 86.2 fL (80.0-98.0); Mean Platelet Volume 10.4 fL (9.4-12.3); Platelet Count 396 X10*3/uL (160-400); Red Blood Count 4.93 X10*6/uL (4.20-5.50); Red Cell Distribution Width 15.1 % (11.0-16.0); White Blood Count 10.5 X10*3/uL (4.8-10.8)
[2023-04-12 13:51] LABS: Alanine Aminotransferase 33 U/L (0-31); Albumin Level 4.3 g/dL (3.5-5.0); Alkaline Phosphatase 96 U/L (39-117); Anion Gap 12 (12-20); Aspartate Amino Transferase 26 U/L (5-31); Bilirubin Total 0.3 mg/dL (0.0-1.0); Blood Urea Nitrogen 13 mg/dL (9-16); Calcium 9.7 mg/dL (8.4-10.2); Carbon Dioxide 24 mmol/L (22-29); Chloride 106 mmol/L (96-108); Estimated Glomerular Filt Rate > 60; Glucose Random 72 mg/dL (60-115); Potassium 4.2 mmol/L (3.3-5.1); Sodium 138 mmol/L (135-145); Total Protein 7.6 g/dL (6.5-8.0)
== END 2023-04-12 10:22 | disposition home or self-care (01) ==
LOC: HO.HMGCLDS 10:21
PROVIDERS: PCP Family Medicine; Visit Provider Emergency Medicine
DX: R10.9 Unspecified abdominal pain (principal)
CPT/HCPCS: 36415; 80053; 85027

== ENCOUNTER 2023-06-20 09:09 | Outpatient (AMB) | payer OTHER, SELFPAY ==
[2023-06-20 09:47] VITALS: BP 130/80; PULSE 78; TEMP 36.3; O2SAT 97; BMI 27.3
--- NOTE | 2023-06-20 09:47 | AM.OFFWIN_ITS ---
Intake Vital Signs 06/20/23 09:47 Height 5 ft 3 in Weight 154 lb BMI 27.3 BP 130/80 Blood Pressure Location Lt brachial Position Sitting Pulse 78 Pulse Source Pulse Oximeter Temp 97.3 F Temp Source Temporal Artery Scan Pulse Oximetry (%) 97 Oxygen Delivery Method Room Air Intake Visit Reasons: EP Asthma Intake Note: pt is here today for asthma started 3 days ago Patient Tobacco Use Status: Current everyday Tobacco user Allergies Sulfa (Sulfonamide Antibiotics) [SULFA(SULFONAMIDE ANTIBIOTICS)] Allergy (Severe, Verified 06/20/23 09:50) SHORTNESS OF BREATH, SWELLING ALL OVER, anaphylaxis bee pollen [BEE STINGS] Allergy (Unknown, Verified 06/20/23 09:50) SWELLING mushroom [MUSHROOM] Allergy (Unknown, Verified 06/20/23 09:50) ANAPHYLAXIS RAISIN Allergy (Intermediate, Uncoded 02/26/23 11:24) HIVES, THROAT SWELLING bees Allergy (Unknown, Uncoded 02/26/23 11:24) anaphylaxis mushrooms Allergy (Unknown, Uncoded 02/26/23 11:24) anaphylaxis raisins Allergy (Unknown, Uncoded 02/26/23 11:24) anaphylaxis Do you need a note to return to daycare/school/sports/work: No HPI HPI Comments History of Present Illness Details She with sickness x 3 days She denies recent contacts Has hx of asthma Has rescue inhaler, symbicort, atrovent; no refills and doesnt have at home Borrowed mothers nebulizer She said no phlegm She denies fever or chills She said + congestion, ST No ear pain No cough medicine taken [facility] Medical History (Updated 06/20/23 @ 13:13 by Ashley Londono PA-C) Asthma Surgical History Tubal ligation status Social History Alcohol intake: current Alcohol intake frequency: does not drink Patient Tobacco Use Status: Current everyday Tobacco user Current occupation: right hand dominant Review of Systems Const Denies chills, Reports fatigue and Denies fever(s) ENT Denies otalgia, Reports nasal discharge, Reports sore throat and Denies throat swelling Card Denies chest pain and Reports dyspnea Resp Reports cough, Reports dyspnea and Reports wheezing GI Denies abdominal pain Endo Reports fatigue Aller/Immun Denies throat swelling and Reports wheezing Physical Exam Vital Signs: Last Vital Signs Temp 97.3 F 06/20/23 09:47 Pulse 78 06/20/23 09:47 BP 130/80 06/20/23 09:47 Pulse Ox 97 06/20/23 09:47 Oxygen Delivery Method Room Air 06/20/23 09:47 BMI result Body Mass Index 27.3 General: Non-toxic, NAD. Speaking full sentences. Skin: Warm dry throughout Eye: EOMI HENT: Airway patent. Uvula midline. No pharyngeal erythema or edema. No SPOOL SORTER. Bilateral canals clear. TM non-erythematous, non-bulging. No TM perforation or hemotympanum noted. Respiratory: CTA bilaterally. No wheezes, rales or rhonchi Cardiac: RRR. No murmur MSK: Full ROM extremities. Neurology: A. No aphasia or facial droop. Gait without abnormality Psych: Good mood and affect Assessment & Plan Assessment & Plan (1) Upper respiratory infection: Code(s): J06.9 - Acute upper respiratory infection, unspecified Qualifiers: URI type: unspecified viral URI Qualified Code(s): J06.9 - Acute upper respiratory infection, unspecified Plan: Patient seen and evaluated. Lungs CTAGiven refill on nebulizer solution Refilled proair to use as rescue as needed tessalon for cough Call PCP for f/u in 1 week ER with CP or worsening SOB Patient gave verbal understanding and had no additional questions or concerns at time of discharge All questions answered Orders: Orders SARS-CoV2/FLU/RSV Today J06.9 - Acute upper respiratory infection, unspecified Medications: New benzonatate 200 mg PO BID-TID PRN 14 caps 0RF cough albuterol sulfate 90 mcg/actuation 1 puff inhalation QID PRN 8.5 grams 0RF shortness of breath or wheezing Refilled albuterol sulfate 2.5 mg (3 mL) inhalation Q4H PRN 90 mL 0RF shortness of breath or wheezing Coding Level of Care Code Est Pt Level 3 (68153) Diagnoses Viral upper respiratory tract infection J06.9 URI type: unspecified viral URI
== END 2023-06-20 10:15 | disposition home or self-care (01) ==
PROVIDERS: PCP Family Medicine; Visit Provider Physician Assistant
DX: J06.9 Acute upper respiratory infection, unspecified (principal)
CPT/HCPCS: 99213

== ENCOUNTER 2023-06-20 13:23 | Outpatient (REF) | payer OTHER, SELFPAY ==
[2023-06-20 14:34] LABS: Influenza A PCR NEGATIVE (Negative); Influenza B PCR NEGATIVE (Negative); Resp Syncy Virus RNA Qual PCR NEGATIVE (Negative); SARS COV2 PCR INHOUSE NEGATIVE (Negative)
== END 2023-06-20 13:24 | disposition home or self-care (01) ==
LOC: HO.HMGCLNP 13:23
PROVIDERS: Visit Provider Physician Assistant
DX: J06.9 Acute upper respiratory infection, unspecified (principal)
CPT/HCPCS: 0241U

== ENCOUNTER 2023-07-12 16:21 | Emergency (ER) | payer OTHER, SELFPAY ==
--- NOTE | ~2023-07-12 | XR_ITS ---
EXAMINATION: XR CHEST CLINICAL INFORMATION: Reason for Exam cough COMPARISON: Chest radiograph 10/27/2022 TECHNIQUE: One view of the chest FINDINGS: Lines and tubes: None. Clear lungs. No pleural effusion. No pneumothorax. Unchanged cardiomediastinal silhouette. XR/XR chest 1V IMPRESSION: * Clear lungs.
[2023-07-12 16:31] VITALS: BP 124/85; PULSE 138; RESP 20; TEMP 37.2; O2SAT 98; BMI 26.6
--- NOTE | 2023-07-12 16:31 | ED.GENADULT ---
HPI - General Adult General Chief complaint: Dyspnea Stated complaint: asthma,body aches congested cough Time Seen by Provider: 07/12/23 20:07 Related Data Home Medications ?Medication ?Instructions ?Recorded ?Confirmed cetirizine 10 mg tablet 10 mg PO DAILY 06/20/23 norethindrone (contraceptive) 0.35 0.35 mg PO DAILY 06/20/23 mg tablet vortioxetine 10 mg tablet 10 mg PO DAILY 06/20/23 (Trintellix) Previous Rx's ?Medication ?Instructions ?Recorded albuterol sulfate 90 mcg/actuation 2 puff inhalation Q6H PRN 09/10/20 aerosol inhaler (ProAir HFA) shortness of breath or wheezing #8.5 grams albuterol sulfate 0.63 mg/3 mL 0.63 mg (3 mL) inhalation QID PRN 04/12/23 solution for nebulization shortness of breath or wheezing #75 mL albuterol sulfate 90 mcg/actuation 2 inh inhalation Q6H #1 ea 04/12/23 breath activated powder inhaler,sensor (Proair Digihaler) albuterol sulfate 2.5 mg/3 mL 2.5 mg (3 mL) inhalation Q4H PRN 06/20/23 (0.083 %) solution for nebulization shortness of breath or wheezing #90 mL albuterol sulfate 90 mcg/actuation 1 puff inhalation QID PRN 06/20/23 aerosol inhaler shortness of breath or wheezing #8.5 grams benzonatate 200 mg capsule 200 mg PO BID-TID PRN cough #14 06/20/23 caps amoxicillin 875 mg-potassium 1 tab PO BID #14 tabs 07/13/23 clavulanate 125 mg tablet azithromycin 500 mg tablet 500 mg PO DAILY 7 days #7 tabs 07/13/23 prednisone 50 mg tablet 50 mg PO DAILY #4 tabs 07/13/23 albuterol sulfate 0.63 mg/3 mL 0.63 mg (3 mL) inhalation Q4-6H 08/29/23 solution for nebulization PRN shortness of breath or wheezing #75 mL albuterol sulfate 90 mcg/actuation 2 puff inhalation Q6H PRN 08/29/23 aerosol inhaler shortness of breath or wheezing #6.7 grams budesonide-formoterol HFA 80 1 puff inhalation BID #10.2 grams 08/29/23 mcg-4.5 mcg/actuation aerosol inhaler (Symbicort) prednisone 10 mg tablets in a dose 10 mg PO DIRECTED #39 ea 08/29/23 pack Allergies Allergy/AdvReac Type Severity Reaction Status Date / Time Sulfa (Sulfonamide Allergy Severe SHORTNESS Verified 08/29/23 11:34 Antibiotics) OF BREATH, [SULFA(SULFONAMIDE SWELLING ANTIBIOTICS)] ALL OVER, anaphylaxis bee pollen [BEE STINGS] Allergy Unknown SWELLING Verified 08/29/23 11:34 mushroom [MUSHROOM] Allergy Unknown ANAPHYLAXIS Verified 08/29/23 11:34 RAISIN Allergy Intermediate HIVES, Uncoded 08/29/23 11:34 THROAT SWELLING bees Allergy Unknown anaphylaxis Uncoded 08/29/23 11:34 mushrooms Allergy Unknown anaphylaxis Uncoded 08/29/23 11:34 raisins Allergy Unknown anaphylaxis Uncoded 08/29/23 11:34 PMFSH Past Medical History Medical History (Updated 09/27/23 @ 15:09 by LAISHA Green) Asthma Surgical History Tubal ligation status Social History Social History Alcohol intake: current Alcohol intake frequency: holidays/special occasions only Patient Tobacco Use Status: Current everyday Tobacco user Substance Use Type: Marijuana Current occupation: right hand dominant Physical Exam ED Vital Signs: BMI result Body Mass Index 26.6 Course Course Course Narrative: This is an RME: Additional HPI, ROS, PE not included below will be deferred to primary provider. 37 yo f presents with asthma exacerbation for 2 weeks. sick contacts at home. Home treatments have not helped. Chest pain with cough. Also reporting chills PE tachycardic (likely secondary to multiple home treatments. last treatment 2 hours ago) Plan- bronch protocol, viral testing, xray Medications Administered Discontinued Medications Generic Name Dose Route Start Last Admin Trade Name Freq PRN Reason Stop Dose Admin Levalbuterol HCl 3.75 mg 07/12/23 17:17 07/12/23 17:17 Levalbuterol Hcl 1.25 Mg/3 Ml Vial.Neb INHALE 07/12/23 17:18 3.75 mg ONCE ONE Administration Medical Decision Making Lab Data 07/12/23 16:51 07/12/23 16:51 Labs: Lab Results 07/12/23 Range/Units 16:51 WBC 20.9 H (4.8-10.8) X10*3/uL RBC 5.29 (4.20-5.50) X10*6/uL Hgb 14.2 (12.0-16.0) g/dl Hct 43.0 (37.0-47.0) % MCV 81.3 (80.0-98.0) fL MCH 26.8 L (27.0-33.0) pg MCHC 33.0 (31.0-35.0) g/dl RDW 14.8 (11.0-16.0) % Plt Count 428 H (160-400) X10*3/uL MPV 9.7 (9.4-12.3) fL Immature Gran % (Auto) 0.4 (0.0-0.4) % Neut % (Auto) 86.3 H (45-73) % Lymph % (Auto) 6.9 L (20-40) % [place] % (Auto) 3.7 (2-11) % Eos % (Auto) 2.1 (0-4) % Baso % (Auto) 0.6 (0-2) % Lymph # (Auto) 1.4 (1.2-4.9) X10*3/uL [place] # (Auto) 0.8 (0.1-1.2) X10*3/uL Eos # (Auto) 0.4 (0.0-0.4) X10*3/uL Baso # (Auto) 0.1 (0.0-0.2) X10*3/uL Abs Immat Gran (auto) 0.09 H (0.00-0.03) X10*3/uL Absolute Neuts (auto) 18.0 H (2.0-8.3) x10*3/uL Absolute Nucleated RBC 0.000 (0.0-0.012) X10*3/uL Nucleated RBC % (auto) 0.0 (0.0-0.2) /100WBC Sodium 138 (135-145) mmol/L Potassium 3.5 (3.3-5.1) mmol/L Chloride 108 (96-108) mmol/L Carbon Dioxide 19 L (22-29) mmol/L Anion Gap 15 (12-20) BUN 9 (9-16) mg/dL Creatinine 0.75 (0.5-1.4) mg/dL Estim Creat Clear Calc 96.0 Estimated GFR > 60 Random Glucose 97 (60-115) mg/dL Calcium 9.7 (8.4-10.2) mg/dL Total Bilirubin 0.5 (0.0-1.0) mg/dL AST 21 (5-31) U/L ALT 14 (0-31) U/L Alkaline Phosphatase 105 (39-117) U/L Total Protein 7.7 (6.5-8.0) g/dL Albumin 4.4 (3.5-5.0) g/dL Discharge Plan Discharge Clinical Impression: Eloped from emergency department Patient Disposition: Left W/O Completing Treatment Prescriptions: No Action amoxicillin-pot clavulanate 875-125 mg tablet 1 tab PO BID Qty: 14 0RF prednisone 50 mg tablet 50 mg PO DAILY Qty: 4 0RF azithromycin 500 mg tablet 500 mg PO DAILY 7 Days Qty: 7 0RF albuterol sulfate [ProAir HFA] 90 mcg/actuation HFA aerosol inhaler 2 puff inhalation Q6H PRN (Reason: shortness of breath or wheezing) Qty: 8.5 2RF Proair Digihaler 90 mcg/actuation aero powdr breath act w/sensor 2 inh inhalation Q6H Qty: 1 0RF albuterol sulfate 0.63 mg/3 mL solution for nebulization 0.63 mg inhalation QID PRN (Reason: shortness of breath or wheezing) Qty: 75 0RF Trintellix 10 mg tablet 10 mg PO DAILY norethindrone (contraceptive) 0.35 mg tablet 0.35 mg PO DAILY cetirizine 10 mg tablet 10 mg PO DAILY benzonatate 200 mg capsule 200 mg PO BID-TID PRN (Reason: cough) Qty: 14 0RF albuterol sulfate 90 mcg/actuation HFA aerosol inhaler 1 puff inhalation QID PRN (Reason: shortness of breath or wheezing) Qty: 8.5 0RF albuterol sulfate 2.5 mg /3 mL (0.083 %) solution for nebulization 2.5 mg inhalation Q4H PRN (Reason: shortness of breath or wheezing) Qty: 90 0RF prednisone 10 mg tablets,dose pack 10 mg PO DIRECTED Qty: 39 0RF Rx Instructions: take 60mg for 3 days, then 40mg for 3 days, then 20mg for 3 days, then 10mg for 3 days albuterol sulfate 90 mcg/actuation HFA aerosol inhaler 2 puff inhalation Q6H PRN (Reason: shortness of breath or wheezing) Qty: 6.7 1RF budesonide-formoterol [Symbicort] 80-4.5 mcg/actuation HFA aerosol inhaler 1 puff inhalation BID Qty: 10.2 1RF albuterol sulfate 0.63 mg/3 mL solution for nebulization 0.63 mg inhalation Q4-6H PRN (Reason: shortness of breath or wheezing) Qty: 75 0RF Discharge Date/Time: 07/12/23 21:15
[2023-07-12 16:55] LABS: MANUAL DIFF FLAG NO
[2023-07-12 17:04] LABS: Basophils Absolute Auto 0.1 X10*3/uL (0.0-0.2); Basophils Percent Auto 0.6 % (0-2); Eosinophils Absolute Auto 0.4 X10*3/uL (0.0-0.4); Eosinophils Percent Auto 2.1 % (0-4); Hemoglobin 14.2 g/dl (12.0-16.0); Imm Gran Abs Auto 0.09 X10*3/uL (0.00-0.03); Imm Gran Pct Auto 0.4 % (0.0-0.4); Lymphocytes Absolute Auto 1.4 X10*3/uL (1.2-4.9); Lymphocytes Percent Auto 6.9 % (20-40); Mean Corpuscular Hemoglobin 26.8 pg (27.0-33.0); Mean Corpuscular Volume 81.3 fL (80.0-98.0); Mean Platelet Volume 9.7 fL (9.4-12.3); Monocytes Absolute Auto 0.8 X10*3/uL (0.1-1.2); Monocytes Percent Auto 3.7 % (2-11); Neutrophils Percent Auto 86.3 % (45-73); Platelet Count 428 X10*3/uL (160-400); Red Blood Count 5.29 X10*6/uL (4.20-5.50); Red Cell Distribution Width 14.8 % (11.0-16.0); White Blood Count 20.9 X10*3/uL (4.8-10.8)
[2023-07-12 17:14] LABS: Alanine Aminotransferase 14 U/L (0-31); Albumin Level 4.4 g/dL (3.5-5.0); Alkaline Phosphatase 105 U/L (39-117); Anion Gap 15 (12-20); Aspartate Amino Transferase 21 U/L (5-31); Bilirubin Total 0.5 mg/dL (0.0-1.0); Blood Urea Nitrogen 9 mg/dL (9-16); Calcium 9.7 mg/dL (8.4-10.2); Carbon Dioxide 19 mmol/L (22-29); Chloride 108 mmol/L (96-108); Estimated Glomerular Filt Rate > 60; Glucose Random 97 mg/dL (60-115); Potassium 3.5 mmol/L (3.3-5.1); Sodium 138 mmol/L (135-145); Total Protein 7.7 g/dL (6.5-8.0)
[2023-07-12 17:17] VITALS: PULSE 132; RESP 26; O2SAT 97
[2023-07-12] MEDS: levalbuterol HCL 1.25 MG/3 ML VIAL.NEB 3.75 MG INHALE (17:17)
--- NOTE | 2023-07-13 14:07 | PC.NURSE ---
I called Kailey to return to the ED for her symptoms and to complete her care, she was here yesterday but left before completing the treatment. She stated she was on her way back.
== END 2023-07-12 21:15 | disposition left against medical advice (07) ==
PROVIDERS: Physician Assistant; Emergency Provider Emergency Medicine; PCP Family Medicine
DX: R05.9 Cough, unspecified (principal); R09.89 Other specified symptoms and signs involving the circulatory and respiratory systems
CPT/HCPCS: 36415; 71045; 80053; 85025; 94640; 99283; 99284

== ENCOUNTER 2023-07-13 14:27 | Emergency (ER) | payer OTHER, SELFPAY ==
--- NOTE | ~2023-07-13 | XR_ITS ---
EXAMINATION: XR CHEST CLINICAL INFORMATION: Chest pain/shortness of breath. COMPARISON: Chest radiograph dated 07/12/2023. TECHNIQUE: Frontal view of the chest was obtained. FINDINGS: There are bibasilar airspace opacities, more prominent on the right for which pneumonia is not excluded. There is no pneumothorax or pleural effusion. Heart size is normal. No acute osseous abnormality. XR/XR chest 1V IMPRESSION: Bibasilar airspace opacities, greater on the right for which pneumonia is not excluded.
--- NOTE | ~2023-07-13 | CT_ITS ---
EXAMINATION: CT CHEST WITHOUT CONTRAST CLINICAL INFORMATION: Shortness of breath, wheezing. COMPARISON: Chest radiograph earlier today. TECHNIQUE: Multidetector volumetric CT imaging of the chest was done. Axial MIP volume rendering provided. Sagittal and coronal reformatted images were obtained. This CT examination was performed using dose optimization techniques as appropriate, variously including the following: *Automated exposure control *Adjustment of mA and/or kV according to patient size (this includes techniques or standardized protocols for targeted exams where dose is matched to indication/reason for exam; i.e. extremities or head) *Use of iterative reconstruction technique DLP: 219 mGy-cm FINDINGS: LUNGS: Bronchial wall thickening with peribronchial airspace opacities noted in the lower lobes and right upper lobe. Scattered intrabronchial mucous secretions. Central airways are patent. A few pulmonary nodules are seen, for example, a 0.5 cm pleural-based solid nodule in the posterior right upper lobe (6:102) and a micronodule in the right apex (5:93). MEDIASTINUM: Normal heart size. No pericardial effusion. No mediastinal lymphadenopathy by CT short axis size criteria. Normal appearance of the thyroid gland. CORONARY ARTERY CALCIFICATION: None visualized on this study. PLEURA: No pleural effusion or pneumothorax. AXILLA: No lymphadenopathy. UPPER ABDOMEN: Unremarkable. OSSEOUS STRUCTURES: No acute or aggressive appearing osseous findings. CT/CT chest wo IV con IMPRESSION: 1. Bronchial wall thickening with peribronchial airspace opacities in the lower lobes and right upper lobe concerning for an atypical pneumonia. 2. A few pulmonary nodules are noted, largest measuring up to 0.5 cm. Following Fleischner Society recommendations, follow-up CT chest in 3-6 months is recommended. Fleischner guidelines were followed.
[2023-07-13 14:33] VITALS: BP 132/84; PULSE 109; RESP 19; TEMP 36.6; O2SAT 97; BMI 26.6
--- NOTE | 2023-07-13 14:33 | ED.GENADULT ---
HPI - General Adult General Chief complaint: General Medical Stated complaint: Asthma Told To Return By Nurse/Dr Time Seen by Provider: 07/13/23 15:31 Related Data Home Medications ?Medication ?Instructions ?Recorded ?Confirmed cetirizine 10 mg tablet 10 mg PO DAILY 06/20/23 norethindrone (contraceptive) 0.35 0.35 mg PO DAILY 06/20/23 mg tablet vortioxetine 10 mg tablet 10 mg PO DAILY 06/20/23 (Trintellix) Previous Rx's ?Medication ?Instructions ?Recorded albuterol sulfate 90 mcg/actuation 2 puff inhalation Q6H PRN 09/10/20 aerosol inhaler (ProAir HFA) shortness of breath or wheezing #8.5 grams albuterol sulfate 0.63 mg/3 mL 0.63 mg (3 mL) inhalation QID PRN 04/12/23 solution for nebulization shortness of breath or wheezing #75 mL albuterol sulfate 90 mcg/actuation 2 inh inhalation Q6H #1 ea 04/12/23 breath activated powder inhaler,sensor (Proair Digihaler) albuterol sulfate 2.5 mg/3 mL 2.5 mg (3 mL) inhalation Q4H PRN 06/20/23 (0.083 %) solution for nebulization shortness of breath or wheezing #90 mL albuterol sulfate 90 mcg/actuation 1 puff inhalation QID PRN 06/20/23 aerosol inhaler shortness of breath or wheezing #8.5 grams benzonatate 200 mg capsule 200 mg PO BID-TID PRN cough #14 06/20/23 caps amoxicillin 875 mg-potassium 1 tab PO BID #14 tabs 07/13/23 clavulanate 125 mg tablet azithromycin 500 mg tablet 500 mg PO DAILY 7 days #7 tabs 07/13/23 prednisone 50 mg tablet 50 mg PO DAILY #4 tabs 07/13/23 albuterol sulfate 0.63 mg/3 mL 0.63 mg (3 mL) inhalation Q4-6H 08/29/23 solution for nebulization PRN shortness of breath or wheezing #75 mL albuterol sulfate 90 mcg/actuation 2 puff inhalation Q6H PRN 08/29/23 aerosol inhaler shortness of breath or wheezing #6.7 grams budesonide-formoterol HFA 80 1 puff inhalation BID #10.2 grams 08/29/23 mcg-4.5 mcg/actuation aerosol inhaler (Symbicort) prednisone 10 mg tablets in a dose 10 mg PO DIRECTED #39 ea 08/29/23 pack Allergies Allergy/AdvReac Type Severity Reaction Status Date / Time Sulfa (Sulfonamide Allergy Severe SHORTNESS Verified 08/29/23 11:34 Antibiotics) OF BREATH, [SULFA(SULFONAMIDE SWELLING ANTIBIOTICS)] ALL OVER, anaphylaxis bee pollen [BEE STINGS] Allergy Unknown SWELLING Verified 08/29/23 11:34 mushroom [MUSHROOM] Allergy Unknown ANAPHYLAXIS Verified 08/29/23 11:34 RAISIN Allergy Intermediate HIVES, Uncoded 08/29/23 11:34 THROAT SWELLING bees Allergy Unknown anaphylaxis Uncoded 08/29/23 11:34 mushrooms Allergy Unknown anaphylaxis Uncoded 08/29/23 11:34 raisins Allergy Unknown anaphylaxis Uncoded 08/29/23 11:34 ON LICENSE OF [facility] Past Medical History Medical History (Updated 09/27/23 @ 15:09 by LAISHA Green) Asthma Surgical History Tubal ligation status Social History Social History Alcohol intake: current Alcohol intake frequency: holidays/special occasions only Patient Tobacco Use Status: Current everyday Tobacco user Substance Use Type: Marijuana Current occupation: right hand dominant Physical Exam ED Vital Signs: BMI result Body Mass Index 26.6 Course Course Course Narrative: This is an RME: Additional HPI, ROS, PE not included below will be deferred to primary provider. 37 yo f presents with asthma exacerbation for 2 weeks. sick contacts at home. Home treatments have not helped. Chest pain with cough. Also reporting chills Left AMA yesterday. Someone told her to com back today because they were worried about here. PE tachycardic Plan- bronch protocol, chest ct Medications Administered Discontinued Medications Generic Name Dose Route Start Last Admin Trade Name Freq PRN Reason Stop Dose Admin Amoxicillin/Clavulanate Potassium 875 mg 07/13/23 19:47 07/13/23 19:56 Amoxicillin/Potassium Clav 875 Mg Tablet PO 07/13/23 19:48 875 mg ONCE ONE Administration Azithromycin 500 mg 07/13/23 19:47 07/13/23 19:56 Azithromycin 500 Mg Tablet PO 07/13/23 19:48 500 mg ONCE ONE Administration Albuterol Sulfate 5 mg/ 0 mg 07/13/23 15:13 07/13/23 15:17 Albuterol/Ipratropium 3 ml INHALE 07/13/23 15:14 1 each ONCE ONE Administration Prednisone 60 mg 07/13/23 15:43 07/13/23 15:57 Prednisone 20 Mg Tablet PO 07/13/23 15:44 60 mg ONCE ONE Administration Medical Decision Making Lab Data 07/13/23 15:48 07/13/23 15:48 Labs: Lab Results 07/13/23 07/13/23 07/13/23 Range/Units 15:48 15:50 17:04 WBC 10.6 (4.8-10.8) X10*3/uL RBC 5.14 (4.20-5.50) X10*6/uL Hgb 13.8 (12.0-16.0) g/dl Hct 42.5 (37.0-47.0) % MCV 82.7 (80.0-98.0) fL MCH 26.8 L (27.0-33.0) pg MCHC 32.5 (31.0-35.0) g/dl RDW 14.9 (11.0-16.0) % Plt Count 383 (160-400) X10*3/uL MPV 9.4 (9.4-12.3) fL Immature Gran % (Auto) 0.2 (0.0-0.4) % Neut % (Auto) 60.8 (45-73) % Lymph % (Auto) 25.4 (20-40) % [place] % (Auto) 4.3 (2-11) % Eos % (Auto) 8.4 H (0-4) % Baso % (Auto) 0.9 (0-2) % Lymph # (Auto) 2.7 (1.2-4.9) X10*3/uL [place] # (Auto) 0.5 (0.1-1.2) X10*3/uL Eos # (Auto) 0.9 H (0.0-0.4) X10*3/uL Baso # (Auto) 0.1 (0.0-0.2) X10*3/uL Abs Immat Gran (auto) 0.02 (0.00-0.03) X10*3/uL Absolute Neuts (auto) 6.4 (2.0-8.3) x10*3/uL Absolute Nucleated RBC 0.000 (0.0-0.012) X10*3/uL Nucleated RBC % (auto) 0.0 (0.0-0.2) /100WBC VBG pH 7.39 (7.32-7.43) VBG pCO2 36 mmHg VBG pO2 33 mmHg VBG HCO3 22 (22-26) mmol/L VBG O2 Saturation 50.0 % VBG Base Excess -1.7 mmol/L Sodium 138 (135-145) mmol/L Potassium 3.4 (3.3-5.1) mmol/L Chloride 105 (96-108) mmol/L Carbon Dioxide 22 (22-29) mmol/L Anion Gap 14 (12-20) BUN 9 (9-16) mg/dL Creatinine 0.76 (0.5-1.4) mg/dL Estim Creat Clear Calc 94.7 Estimated GFR > 60 Random Glucose 98 (60-115) mg/dL Lactic Acid 1.2 (0.5-2.0) mmol/L Calcium 9.9 (8.4-10.2) mg/dL Total Bilirubin 0.5 (0.0-1.0) mg/dL AST 21 (5-31) U/L ALT 13 (0-31) U/L Alkaline Phosphatase 101 (39-117) U/L Total Protein 7.9 (6.5-8.0) g/dL Albumin 4.5 (3.5-5.0) g/dL Urine Test NEGATIVE (NEGATIVE) Influenza Type A (PCR) NEGATIVE (Negative) Influenza Type B (PCR) NEGATIVE (Negative) RSV RNA Qual (PCR) NEGATIVE (Negative) SARS-CoV-2 RNA (RT-PCR) NEGATIVE (Negative) Discharge Plan Discharge Clinical Impression: Pneumonia Patient Disposition: Home, Self-Care Additional Instructions: You were seen in the emergency room for shortness of breath. Your symptoms are consistent with pneumonia, this was confirmed by CT chest. CT also shows some nodules that needs to be rechecked in 3-6 months in the majority of this case these are benign nodules but they need to be observed over time see report below In light of the diagnosis of pneumonia we started you on 2 antibiotics, Augmentin azithromycin please continue them for the next week We also started on prednisone. Please take 50 mg once a day for the next 4 days Follow-up with your primary care physician in a week. If your symptoms worsen return to the emergency room for evaluation. Ct results: IMPRESSION: 1. Bronchial wall thickening with peribronchial airspace opacities in the lower lobes and right upper lobe concerning for an atypical pneumonia. 2. A few pulmonary nodules are noted, largest measuring up to 0.5 cm. Following Fleischner Society recommendations, follow-up CT chest in 3-6 months is recommended. Prescriptions: New amoxicillin-pot clavulanate 875-125 mg tablet 1 tab PO BID Qty: 14 0RF prednisone 50 mg tablet 50 mg PO DAILY Qty: 4 0RF azithromycin 500 mg tablet 500 mg PO DAILY 7 Days Qty: 7 0RF No Action albuterol sulfate [ProAir HFA] 90 mcg/actuation HFA aerosol inhaler 2 puff inhalation Q6H PRN (Reason: shortness of breath or wheezing) Qty: 8.5 2RF Proair Digihaler 90 mcg/actuation aero powdr breath act w/sensor 2 inh inhalation Q6H Qty: 1 0RF albuterol sulfate 0.63 mg/3 mL solution for nebulization 0.63 mg inhalation QID PRN (Reason: shortness of breath or wheezing) Qty: 75 0RF Trintellix 10 mg tablet 10 mg PO DAILY norethindrone (contraceptive) 0.35 mg tablet 0.35 mg PO DAILY cetirizine 10 mg tablet 10 mg PO DAILY benzonatate 200 mg capsule 200 mg PO BID-TID PRN (Reason: cough) Qty: 14 0RF albuterol sulfate 90 mcg/actuation HFA aerosol inhaler 1 puff inhalation QID PRN (Reason: shortness of breath or wheezing) Qty: 8.5 0RF albuterol sulfate 2.5 mg /3 mL (0.083 %) solution for nebulization 2.5 mg inhalation Q4H PRN (Reason: shortness of breath or wheezing) Qty: 90 0RF prednisone 10 mg tablets,dose pack 10 mg PO DIRECTED Qty: 39 0RF Rx Instructions: take 60mg for 3 days, then 40mg for 3 days, then 20mg for 3 days, then 10mg for 3 days albuterol sulfate 90 mcg/actuation HFA aerosol inhaler 2 puff inhalation Q6H PRN (Reason: shortness of breath or wheezing) Qty: 6.7 1RF budesonide-formoterol [Symbicort] 80-4.5 mcg/actuation HFA aerosol inhaler 1 puff inhalation BID Qty: 10.2 1RF albuterol sulfate 0.63 mg/3 mL solution for nebulization 0.63 mg inhalation Q4-6H PRN (Reason: shortness of breath or wheezing) Qty: 75 0RF Interventions: ED Discharge Assessment Last Done: 07/13/23 20:00 Discharge Date/Time: 07/13/23 20:01 Print Language: Uz[place]
[2023-07-13] MEDS: Albuterol Sulfate 5 MG, Albuterol/Iprat 2.5/0.5MG 3 ML 3 ML INHALE (15:17)
[2023-07-13 15:20] VITALS: PULSE 112; RESP 22; O2SAT 97
--- NOTE | 2023-07-13 15:43 | PC.NURSE ---
PT AMBULATORY INTO ED, SHE WAS MADE AWARE OF THE NEED FOR A URINE SPECIMEN FOR CT SCAN, SHE WAS ALSO ASKED TO REFRAIN FROM EATING THE POPCORN SHE HAD,
[2023-07-13 15:54] LABS: MANUAL DIFF FLAG NO
[2023-07-13] MEDS: predniSONE 20 MG TABLET 60 MG PO (15:57)
[2023-07-13 15:58] LABS: Basophils Absolute Auto 0.1 X10*3/uL (0.0-0.2); Basophils Percent Auto 0.9 % (0-2); Eosinophils Absolute Auto 0.9 X10*3/uL (0.0-0.4); Eosinophils Percent Auto 8.4 % (0-4); Hematocrit 42.5 % (37.0-47.0); Hemoglobin 13.8 g/dl (12.0-16.0); Imm Gran Abs Auto 0.02 X10*3/uL (0.00-0.03); Imm Gran Pct Auto 0.2 % (0.0-0.4); Lymphocytes Absolute Auto 2.7 X10*3/uL (1.2-4.9); Lymphocytes Percent Auto 25.4 % (20-40); Mean Corpuscular HGB Conc 32.5 g/dl (31.0-35.0); Mean Corpuscular Hemoglobin 26.8 pg (27.0-33.0); Mean Corpuscular Volume 82.7 fL (80.0-98.0); Mean Platelet Volume 9.4 fL (9.4-12.3); Monocytes Absolute Auto 0.5 X10*3/uL (0.1-1.2); Monocytes Percent Auto 4.3 % (2-11); Neutrophils Absolute Auto 6.4 x10*3/uL (2.0-8.3); Neutrophils Percent Auto 60.8 % (45-73); Platelet Count 383 X10*3/uL (160-400); Red Blood Count 5.14 X10*6/uL (4.20-5.50); Red Cell Distribution Width 14.9 % (11.0-16.0); White Blood Count 10.6 X10*3/uL (4.8-10.8)
[2023-07-13 16:00] LABS: VBG Base Excess -1.7 mmol/L; VBG HCO3 22 mmol/L (22-26); VBG pCO2 36 mmHg; VBG pH 7.39 (7.32-7.43); VBG pO2 33 mmHg
[2023-07-13 16:07] LABS: Lactic Acid 1.2 mmol/L (0.5-2.0)
[2023-07-13 16:12] LABS: Alanine Aminotransferase 13 U/L (0-31); Albumin Level 4.5 g/dL (3.5-5.0); Alkaline Phosphatase 101 U/L (39-117); Anion Gap 14 (12-20); Aspartate Amino Transferase 21 U/L (5-31); Bilirubin Total 0.5 mg/dL (0.0-1.0); Blood Urea Nitrogen 9 mg/dL (9-16); Calcium 9.9 mg/dL (8.4-10.2); Carbon Dioxide 22 mmol/L (22-29); Chloride 105 mmol/L (96-108); Creatinine Clr Calc Pharmacy 94.7; Estimated Glomerular Filt Rate > 60; Glucose Random 98 mg/dL (60-115); Potassium 3.4 mmol/L (3.3-5.1); Sodium 138 mmol/L (135-145); Total Protein 7.9 g/dL (6.5-8.0)
[2023-07-13 16:24] LABS: Venous Blood Gas Refer to POC result
--- NOTE | 2023-07-13 16:33 | ED_ITS ---
HPI - General Adult General Chief complaint: General Medical Stated complaint: Asthma Told To Return By Nurse/Dr Time Seen by Provider: 07/13/23 15:31 Source: patient Limitations: no limitations History of Present Illness HPI narrative: 37 years old with history of asthma, presents emergency room for shortness of breath. Patient initially presented to the emergency room yesterday for similar reason and left without being seen, the time however blood work and chest x-ray was done, chest x-ray was fine however blood work showed an elevated white blood count for which the patient was called back today to rule out pneumonia. Patient on arrival received nebs with improvement of her symptoms. She reports that in her household there are multiple people with both upper respiratory symptoms and with nonbloody diarrhea. Patient reports improvement of his symptoms after nebs, reports that she had similar presentation in the past which usually resolve without antibiotic and with prednisone. She reports cough with at time white to yellow phlegm ongoing for the past 2 weeks. She reports negative COVID flu RSV at the urgent care Patient denies bloody diarrhea, abdominal pain nausea or vomiting Related Data Home Medications ?Medication ?Instructions ?Recorded ?Confirmed cetirizine 10 mg tablet 10 mg PO DAILY 06/20/23 norethindrone (contraceptive) 0.35 0.35 mg PO DAILY 06/20/23 mg tablet vortioxetine 10 mg tablet 10 mg PO DAILY 06/20/23 (Trintellix) Previous Rx's ?Medication ?Instructions ?Recorded albuterol sulfate 90 mcg/actuation 2 puff inhalation Q6H PRN 09/10/20 aerosol inhaler (ProAir HFA) shortness of breath or wheezing #8.5 grams albuterol sulfate 0.63 mg/3 mL 0.63 mg (3 mL) inhalation QID PRN 04/12/23 solution for nebulization shortness of breath or wheezing #75 mL albuterol sulfate 90 mcg/actuation 2 inh inhalation Q6H #1 ea 04/12/23 breath activated powder inhaler,sensor (Proair Digihaler) albuterol sulfate 2.5 mg/3 mL 2.5 mg (3 mL) inhalation Q4H PRN 06/20/23 (0.083 %) solution for nebulization shortness of breath or wheezing #90 mL albuterol sulfate 90 mcg/actuation 1 puff inhalation QID PRN 06/20/23 aerosol inhaler shortness of breath or wheezing #8.5 grams benzonatate 200 mg capsule 200 mg PO BID-TID PRN cough #14 06/20/23 caps amoxicillin 875 mg-potassium 1 tab PO BID #14 tabs 07/13/23 clavulanate 125 mg tablet azithromycin 500 mg tablet 500 mg PO DAILY 7 days #7 tabs 07/13/23 prednisone 50 mg tablet 50 mg PO DAILY #4 tabs 07/13/23 Allergies Allergy/AdvReac Type Severity Reaction Status Date / Time Sulfa (Sulfonamide Allergy Severe SHORTNESS Verified 07/13/23 14:35 Antibiotics) OF BREATH, [SULFA(SULFONAMIDE SWELLING ANTIBIOTICS)] ALL OVER, anaphylaxis bee pollen [BEE STINGS] Allergy Unknown SWELLING Verified 07/13/23 14:35 mushroom [MUSHROOM] Allergy Unknown ANAPHYLAXIS Verified 07/13/23 14:35 RAISIN Allergy Intermediate HIVES, Uncoded 07/13/23 14:35 THROAT SWELLING bees Allergy Unknown anaphylaxis Uncoded 07/13/23 14:35 mushrooms Allergy Unknown anaphylaxis Uncoded 07/13/23 14:35 raisins Allergy Unknown anaphylaxis Uncoded 07/13/23 14:35 Review of Systems 2 Review of Systems: Yes all other systems are reviewed and are negative PMFSH Past Medical History Medical History (Updated 07/13/23 @ 19:48 by Miguel Angel Rodrigues MD) Asthma Surgical History Tubal ligation status Social History Social History Alcohol intake: current Alcohol intake frequency: holidays/special occasions only Patient Tobacco Use Status: Current everyday Tobacco user Smoked in Last 30 Days: Yes Use of substances other than those prescribed or required for medical reasons: Yes Substance Use Type: Marijuana Advance Directives: No Advance Directives Information Provided: No Patient : No Current occupation: right hand dominant Physical Exam ED Vital Signs: Vital Signs - 24 hr 07/13/23 14:33 07/13/23 15:20 07/13/23 19:57 Temperature 98 F 98.1 F Pulse Rate 109 H 112 H 113 H Respiratory Rate 19 22 H 16 Blood Pressure 132/84 130/86 Pulse Oximetry 97 97 Oxygen Delivery Method Room Air Room Air 07/13/23 20:00 Temperature 98.1 F Pulse Rate 113 H Respiratory Rate 16 Blood Pressure 130/86 Pulse Oximetry 97 Oxygen Delivery Method Room Air BMI result Body Mass Index 26.6 General: Alert, Not in Distress Skin: No rash, warm HEENT: Atraumatic, No Exudate or Pharyngeal Erythema Resp: Bilateral expiratory wheezing Cardio: Regular rate and Rhythm, Normal S1, S2 ABD: Abd soft, non tender, no guarding or rebound. Normal Bowel sounds. : No cva tenderness Neuro: Alert, oriented x4, PERRL Strenght 5/5 on all extremities Sensation is preserved in both lower and upper extremities Index to nose: normal Cranial Nerves II-XII grossly intact No dysarthria, or aphasia No neglet. Visual flores are normal bilaterally Psych: Cooperative, NO SI Course Reevaluation(s) Reevaluation #1: Patient's CT scan was consistent with possible atypical pneumonia for which patient was started on Augmentin and azithromycin. Results of the CT scan including lung nodules with requirement of follow-up in 3-6 months were discussed with patient at bedside. At this time patient has remained hemodynamically stable with no need of supplemental oxygen. I think she is a good candidate for outpatient treatment. Escalation of care was considered but at this time I do not think it is necessary. Will DC home Time: 20:09 Medications Administered Discontinued Medications Generic Name Dose Route Start Last Admin Trade Name Freq PRN Reason Stop Dose Admin Amoxicillin/Clavulanate Potassium 875 mg 07/13/23 19:47 07/13/23 19:56 Amoxicillin/Potassium Clav 875 Mg Tablet PO 07/13/23 19:48 875 mg ONCE ONE Administration Azithromycin 500 mg 07/13/23 19:47 07/13/23 19:56 Azithromycin 500 Mg Tablet PO 07/13/23 19:48 500 mg ONCE ONE Administration Albuterol Sulfate 5 mg/ 0 mg 07/13/23 15:13 07/13/23 15:17 Albuterol/Ipratropium 3 ml INHALE 07/13/23 15:14 1 each ONCE ONE Administration Prednisone 60 mg 07/13/23 15:43 07/13/23 15:57 Prednisone 20 Mg Tablet PO 07/13/23 15:44 60 mg ONCE ONE Administration Medical Decision Making Medical Decision Making [facility] Narrative: Patient presents emergency room today after she had abnormal blood work yesterday. I personally reviewed and interpreted the patient chest x-ray from yesterday which to me did not show any consolidation. Reports for x-ray also showed clear lungs. In consideration of the fact that the inpatient also old multiple people have exhibiting upper respiratory infection symptoms I think is likely the patient has a viral infection however the leukocytosis is somewhat concerning for pneumonia. Plan Repeat chest x-ray Repeat CBC, BMP, VBG Bronchodilators Steroids CT chest Admission/Observation Consideration of admission/observation: Escalation of care including admission/observation considered Lab Data MDM Lab Attestation statement: I reviewed the patient's lab results. Patient's blood work today showed a unremarkable white blood cells with no immature granulocytes, unclear why the patient's blood work yesterday was so different than the 1 today. Her VBG today also did not show any signs of respiratory failure. 07/13/23 15:48 07/13/23 15:48 Labs: Lab Results 07/13/23 07/13/23 07/13/23 Range/Units 15:48 15:50 17:04 WBC 10.6 (4.8-10.8) X10*3/uL RBC 5.14 (4.20-5.50) X10*6/uL Hgb 13.8 (12.0-16.0) g/dl Hct 42.5 (37.0-47.0) % MCV 82.7 (80.0-98.0) fL MCH 26.8 L (27.0-33.0) pg MCHC 32.5 (31.0-35.0) g/dl RDW 14.9 (11.0-16.0) % Plt Count 383 (160-400) X10*3/uL MPV 9.4 (9.4-12.3) fL Immature Gran % (Auto) 0.2 (0.0-0.4) % Neut % (Auto) 60.8 (45-73) % Lymph % (Auto) 25.4 (20-40) % Starr % (Auto) 4.3 (2-11) % Eos % (Auto) 8.4 H (0-4) % Baso % (Auto) 0.9 (0-2) % Lymph # (Auto) 2.7 (1.2-4.9) X10*3/uL Starr # (Auto) 0.5 (0.1-1.2) X10*3/uL Eos # (Auto) 0.9 H (0.0-0.4) X10*3/uL Baso # (Auto) 0.1 (0.0-0.2) X10*3/uL Abs Immat Gran (auto) 0.02 (0.00-0.03) X10*3/uL Absolute Neuts (auto) 6.4 (2.0-8.3) x10*3/uL Absolute Nucleated RBC 0.000 (0.0-0.012) X10*3/uL Nucleated RBC % (auto) 0.0 (0.0-0.2) /100WBC VBG pH 7.39 (7.32-7.43) VBG pCO2 36 mmHg VBG pO2 33 mmHg VBG HCO3 22 (22-26) mmol/L VBG O2 Saturation 50.0 % VBG Base Excess -1.7 mmol/L Sodium 138 (135-145) mmol/L Potassium 3.4 (3.3-5.1) mmol/L Chloride 105 (96-108) mmol/L Carbon Dioxide 22 (22-29) mmol/L Anion Gap 14 (12-20) BUN 9 (9-16) mg/dL Creatinine 0.76 (0.5-1.4) mg/dL Estim Creat Clear Calc 94.7 Estimated GFR > 60 Random Glucose 98 (60-115) mg/dL Lactic Acid 1.2 (0.5-2.0) mmol/L Calcium 9.9 (8.4-10.2) mg/dL Total Bilirubin 0.5 (0.0-1.0) mg/dL AST 21 (5-31) U/L ALT 13 (0-31) U/L Alkaline Phosphatase 101 (39-117) U/L Total Protein 7.9 (6.5-8.0) g/dL Albumin 4.5 (3.5-5.0) g/dL Urine Test NEGATIVE (NEGATIVE) Independent Interpretation I performed an independent interpretation of an: CT Scan (I personally reviewed and interpreted the patient's CT scan that shows possible bilateral consolidation) Radiology Impression Discussion of test interpretation with radiology: I have reviewed the radiologist's reading. Discharge Plan Discharge Clinical Impression: Pneumonia Patient Disposition: Home, Self-Care Additional Instructions: You were seen in the emergency room for shortness of breath. Your symptoms are consistent with pneumonia, this was confirmed by CT chest. CT also shows some nodules that needs to be rechecked in 3-6 months in the majority of this case these are benign nodules but they need to be observed over time see report below In light of the diagnosis of pneumonia we started you on 2 antibiotics, Augmentin azithromycin please continue them for the next week We also started on prednisone. Please take 50 mg once a day for the next 4 days Follow-up with your primary care physician in a week. If your symptoms worsen return to the emergency room for evaluation. Ct results: IMPRESSION: 1. Bronchial wall thickening with peribronchial airspace opacities in the lower lobes and right upper lobe concerning for an atypical pneumonia. 2. A few pulmonary nodules are noted, largest measuring up to 0.5 cm. Following Fleischner Society recommendations, follow-up CT chest in 3-6 months is recommended. Prescriptions: New amoxicillin-pot clavulanate 875-125 mg tablet 1 tab PO BID Qty: 14 0RF prednisone 50 mg tablet 50 mg PO DAILY Qty: 4 0RF azithromycin 500 mg tablet 500 mg PO DAILY 7 Days Qty: 7 0RF No Action albuterol sulfate [ProAir HFA] 90 mcg/actuation HFA aerosol inhaler 2 puff inhalation Q6H PRN (Reason: shortness of breath or wheezing) Qty: 8.5 2RF Proair Digihaler 90 mcg/actuation aero powdr breath act w/sensor 2 inh inhalation Q6H Qty: 1 0RF albuterol sulfate 0.63 mg/3 mL solution for nebulization 0.63 mg inhalation QID PRN (Reason: shortness of breath or wheezing) Qty: 75 0RF Trintellix 10 mg tablet 10 mg PO DAILY norethindrone (contraceptive) 0.35 mg tablet 0.35 mg PO DAILY cetirizine 10 mg tablet 10 mg PO DAILY benzonatate 200 mg capsule 200 mg PO BID-TID PRN (Reason: cough) Qty: 14 0RF albuterol sulfate 90 mcg/actuation HFA aerosol inhaler 1 puff inhalation QID PRN (Reason: shortness of breath or wheezing) Qty: 8.5 0RF albuterol sulfate 2.5 mg /3 mL (0.083 %) solution for nebulization 2.5 mg inhalation Q4H PRN (Reason: shortness of breath or wheezing) Qty: 90 0RF Interventions: ED Discharge Assessment Last Done: 07/13/23 20:00 Discharge Date/Time: 07/13/23 20:01 Print Language: Sami
[2023-07-13 16:34] LABS: Influenza A PCR NEGATIVE (Negative); Influenza B PCR NEGATIVE (Negative); Resp Syncy Virus RNA Qual PCR NEGATIVE (Negative); SARS COV2 PCR INHOUSE NEGATIVE (Negative)
[2023-07-13 17:22] LABS: UPreg QC Valid YES; Urine Pregnancy NEGATIVE (NEGATIVE)
[2023-07-13] MEDS: Amoxicillin/Potassium Clav 875 MG TABLET PO (19:56)
[2023-07-13] MEDS: Azithromycin 500 MG TABLET PO (19:56)
[2023-07-13 19:57] VITALS: BP 130/86; PULSE 113; RESP 16; TEMP 36.7; O2SAT 97
[2023-07-13 20:00] VITALS: BP 130/86; PULSE 113; RESP 16; TEMP 36.7; O2SAT 97
== END 2023-07-13 20:01 | disposition home or self-care (01) ==
PROVIDERS: Physician Assistant; Emergency Provider Student in an Organized Health Care Education/Training Program; PCP Family Medicine
DX: J18.9 Pneumonia, unspecified organism (principal); J45.909 Unspecified asthma, uncomplicated
CPT/HCPCS: 0241U; 36415; 71045; 71250; 80053; 81025; 82803; 83605; 85025; 94640; 99284

== ENCOUNTER 2023-08-29 11:33 | Outpatient (AMB) | payer OTHER, SELFPAY ==
[2023-08-29 11:34] VITALS: BP 118/74; PULSE 125; TEMP 37.4; O2SAT 97; BMI 26.9
--- NOTE | 2023-08-29 11:34 | MHC.OFFWIV ---
Intake Vital Signs 08/29/23 11:34 Height 5 ft 3 in Weight 152 lb BMI 26.9 BP 118/74 Blood Pressure Location Lt brachial Position Sitting Pulse 125 H Pulse Source Pulse Oximeter Temp 99.4 F Temp Source Oral Pulse Oximetry (%) 97 Oxygen Delivery Method Room Air Intake Visit Reasons: EP Asthma Intake Note: pt here c/o asthma Patient Tobacco Use Status: Current everyday Tobacco user Allergies Sulfa (Sulfonamide Antibiotics) [SULFA(SULFONAMIDE ANTIBIOTICS)] Allergy (Severe, Verified 08/29/23 11:34) SHORTNESS OF BREATH, SWELLING ALL OVER, anaphylaxis bee pollen [BEE STINGS] Allergy (Unknown, Verified 08/29/23 11:34) SWELLING mushroom [MUSHROOM] Allergy (Unknown, Verified 08/29/23 11:34) ANAPHYLAXIS RAISIN Allergy (Intermediate, Uncoded 08/29/23 11:34) HIVES, THROAT SWELLING bees Allergy (Unknown, Uncoded 08/29/23 11:34) anaphylaxis mushrooms Allergy (Unknown, Uncoded 08/29/23 11:34) anaphylaxis raisins Allergy (Unknown, Uncoded 08/29/23 11:34) anaphylaxis HPI HPI Comments History of Present Illness Details Patient is a 37-year-old female with a past medical history of asthma who is not currently taking her Atrovent or Symbicort because she can not get refills, she currently is trying to switch her PCP back to Gracy Oliver. She is here complaining of productive cough with green and yellow sputum as well as wheezing which has been getting worse over the last week. She states she has been on multiple rounds of prednisone and antibiotics over the last few months. She states she knows when she has pneumonia because she ?can not smoke cigarettes without coughing?. [facility] Medical History (Updated 07/14/23 @ 00:00 by Roxane Edwards) Asthma Surgical History Tubal ligation status Social History Alcohol intake: current Alcohol intake frequency: holidays/special occasions only Patient Tobacco Use Status: Current everyday Tobacco user Substance Use Type: Marijuana Current occupation: right hand dominant Review of Systems Const All systems reviewed & are unremarkable except as noted in HPI and below Physical Exam Vital Signs: Last Vital Signs Temp 99.4 F 08/29/23 11:34 Pulse 125 H 08/29/23 11:34 BP 118/74 08/29/23 11:34 Pulse Ox 97 08/29/23 11:34 Oxygen Delivery Method Room Air 08/29/23 11:34 BMI result Body Mass Index 26.9 Const General: cooperative, healthy appearing, comfortable and no acute distress Orientation/consciousness: patient oriented x3 Limitations: no limitations HEENT Head: Yes normal to inspection Ears: external ears normal General nose exam: Normal external nose present, Normal nares present and No nasal discharge present Face and sinus: Yes normal facial exam and Yes sinuses nontender Mouth: Normal oral and palatal mucosa present and moist mucous membranes Throat: Yes posterior oropharynx normal Eyes General: appearance normal, both eyes and all related structures Neck Neck: Yes normal visual inspection Resp Effort & Inspection: normal respiratory effort, able to speak in complete sentences, audible wheezes, Actively coughing, no respiratory distress, not tachypneic, no tripod positioning and no use of accessory muscles Auscultation: wheezes expiratory wheezes and throughout Cardio Rate: regular rate Rhythm: regular rhythm Heart sounds: normal S1 and S2 Skin General skin exam: no rashes or lesions noted Neuro General: patient oriented x3 Extrem General: Yes normal to inspection and Yes no clubbing, cyanosis or edema Assessment & Plan Assessment & Plan (1) Upper respiratory infection: Code(s): J06.9 - Acute upper respiratory infection, unspecified Qualifiers: URI type: unspecified viral URI Qualified Code(s): J06.9 - Acute upper respiratory infection, unspecified Plan: Chest x-ray showed no acute cardiopulmonary process. As patient states she requires a higher dose of her prednisone taper, sent to pharmacy as such. Also refilled her inhalers and her maintenance asthma medication. Counseled patient on quitting smoking. Recommended patient change her primary care doctor with her insurance company and then call us back to get an appointment with Gracy Jaramillo NP as soon as possible so she can continue her maintenance asthma medications. I called in a [employer] script to cover her for the next 60 days, patient is aware she has 60 days to take care of this issue. Plan See above Orders: Orders XR chest 2V Today J06.9 - Acute upper respiratory infection, unspecified Medications: New albuterol sulfate 90 mcg/actuation 2 puffs inhalation Q6H PRN 6.7 grams 1RF shortness of breath or wheezing budesonide-formoterol 80-4.5 mcg/actuation (Symbicort) 1 puff inhalation BID 10.2 grams 1RF prednisone take 60mg for 3 days, then 40mg for 3 days, then 20mg for 3 days, then 10mg for 3 days 10 mg PO DIRECTED 39 ea 0RF albuterol sulfate 0.63 mg (3 mL) inhalation Q4-6H PRN 75 mL 0RF shortness of breath or wheezing Coding Level of Care Code Est Pt Level 4 (57275) Diagnoses Viral upper respiratory tract infection J06.9 URI type: unspecified viral URI
== END 2023-08-29 12:45 | disposition home or self-care (01) ==
PROVIDERS: PCP Family Medicine; Visit Provider Physician Assistant
DX: J06.9 Acute upper respiratory infection, unspecified (principal)
CPT/HCPCS: 99214

== ENCOUNTER 2023-08-29 11:55 | Outpatient (REF) | payer OTHER, SELFPAY ==
--- NOTE | ~2023-08-29 | XR_ITS ---
EXAMINATION: XR CHEST 2 VIEW CLINICAL INFORMATION: Acute URI COMPARISON: 07/13/2023 TECHNIQUE: PA and lateral views of the chest obtained. FINDINGS: The lungs are clear. There are no pleural effusions. The cardiomediastinal silhouette is normal. XR/XR chest 2V IMPRESSION: No acute cardiopulmonary disease.
== END 2023-08-29 11:56 | disposition home or self-care (01) ==
LOC: HO.HMGCX 11:55
PROVIDERS: PCP Family Medicine; Visit Provider Physician Assistant
DX: J06.9 Acute upper respiratory infection, unspecified (principal)
CPT/HCPCS: 71046

== ENCOUNTER 2023-12-17 09:14 | Outpatient (REF) | payer OTHER, SELFPAY ==
[2023-12-17 12:29] LABS: Amphetamine Screen Urine Not Detected (Not Detect); Barbiturates, Urine Not Detected (Not Detect); Benzodiazepines Screen Urine Not Detected (Not Detect); Buprenorphine Scr Not Detected (Not Detect); Cannabinoid Screen Urine Not Detected (Not Detect); Cocaine Screen Urine Not Detected (Not Detect); Fentanyl, urine Not Detected (Not Detect); Methadone Screen, Urine Not Detected (Not Detect); Opiate Screen Urine Not Detected (Not Detect); Oxycodone Screen Urine Not Detected (Not Detect); Phencyclidine Screen Urine Not Detected (Not Detect)
== END 2023-12-17 09:15 | disposition home or self-care (01) ==
LOC: HO.LAB 09:14
PROVIDERS: Visit Provider Nurse Practitioner Psychiatric/Mental Health
DX: Z79.899 Other long term (current) drug therapy (principal)
CPT/HCPCS: 80307

== ENCOUNTER 2024-01-23 21:43 | Emergency (ER) | payer OTHER, SELFPAY ==
--- NOTE | ~2024-01-23 | XR_ITS ---
EXAMINATION: XR CHEST CLINICAL INFORMATION: Cough, shortness of breath. COMPARISON: Chest x-ray August 29, 2023. CT chest September 12, 2023 TECHNIQUE: 2 views of the chest were obtained. FINDINGS: There are linear and hazy bilateral perihilar airspace opacities. This is similar in appearance to the CT chest July 13, 2023. No pleural effusion. No pneumothorax. XR/XR chest 2V IMPRESSION: Linear and hazy bilateral perihilar airspace opacities. Electronically signed by: Colton Davalos MD 01/23/2024 11:07 PM EDT
[2024-01-23 21:51] VITALS: BP 151/90; PULSE 120; RESP 20; TEMP 37; O2SAT 98
--- NOTE | 2024-01-23 21:55 | ECG_ITS ---
Test Reason : CHEST PAIN Blood Pressure : / mmHG Vent. Rate : 114 BPM Atrial Rate : 114 BPM P-R Int : 128 ms QRS Dur : 080 ms QT Int : 328 ms P-R-T Axes : 074 069 057 degrees QTc Int : 452 ms Sinus tachycardia Possible Left atrial enlargement Borderline ECG When compared with ECG of 01-SEP-2016 20:57, No significant change was found Referred By: Generic ED Physician Electronically Signed By:BARBI GUZMAN
[2024-01-23 22:09] LABS: MANUAL DIFF FLAG NO
[2024-01-23 22:11] LABS: Basophils Absolute Auto 0.1 X10*3/uL (0.0-0.2); Eosinophils Absolute Auto 0.6 X10*3/uL (0.0-0.4); Eosinophils Percent Auto 4.5 % (0-4); Hematocrit 37.8 % (37.0-47.0); Hemoglobin 12.8 g/dl (12.0-16.0); Imm Gran Abs Auto 0.05 X10*3/uL (0.00-0.03); Imm Gran Pct Auto 0.4 % (0.0-0.4); Lymphocytes Absolute Auto 2.3 X10*3/uL (1.2-4.9); Lymphocytes Percent Auto 18.5 % (20-40); Mean Corpuscular HGB Conc 33.9 g/dl (31.0-35.0); Mean Corpuscular Volume 82.7 fL (80.0-98.0); Mean Platelet Volume 9.3 fL (9.4-12.3); Monocytes Absolute Auto 0.6 X10*3/uL (0.1-1.2); Monocytes Percent Auto 5.3 % (2-11); Neutrophils Absolute Auto 8.6 x10*3/uL (2.0-8.3); Neutrophils Percent Auto 70.3 % (45-73); Platelet Count 378 X10*3/uL (160-400); Red Blood Count 4.57 X10*6/uL (4.20-5.50); Red Cell Distribution Width 14.8 % (11.0-16.0); White Blood Count 12.2 X10*3/uL (4.8-10.8)
[2024-01-23 22:25] LABS: Anion Gap 13 (12-20); Blood Urea Nitrogen 9 mg/dL (9-16); Calcium 8.4 mg/dL (8.4-10.2); Carbon Dioxide 21 mmol/L (22-29); Chloride 109 mmol/L (96-108); Creatinine Clr Calc Pharmacy 102.1; Estimated Glomerular Filt Rate > 60; Glucose Random 105 mg/dL (60-115); Potassium 3.7 mmol/L (3.3-5.1); Sodium 139 mmol/L (135-145)
[2024-01-23 22:34] LABS: Troponin-I High Sensitivity < 2.7 ng/L (<3.5-17.0)
[2024-01-23 22:50] LABS: Influenza A PCR NEGATIVE (Negative); Influenza B PCR NEGATIVE (Negative); Resp Syncy Virus RNA Qual PCR NEGATIVE (Negative); SARS COV2 PCR INHOUSE NEGATIVE (Negative)
[2024-01-23 23:34] VITALS: BP 137/63; PULSE 111; RESP 26; TEMP 37.1; O2SAT 96
[2024-01-24 00:59] VITALS: O2SAT 97
[2024-01-24 02:12] VITALS: BP 120/86; PULSE 101; RESP 16; O2SAT 97
--- NOTE | 2024-01-24 03:06 | ED.GENADULT ---
HPI - General Adult General Chief complaint: Upper Respiratory Symptoms Stated complaint: Hard time breathing Time Seen by Provider: 01/24/24 03:03 Source: patient Mode of arrival: ambulatory Limitations: no limitations History of Present Illness ED Provider: Dr. Garibay HPI narrative: 38 yo female who presents with 3 weeks of on and off shortness of breath. She had been on prednisone 3 weeks ago Onset (ago): week(s) Related Data Home Medications ?Medication ?Instructions ?Recorded ?Confirmed cetirizine 10 mg tablet 10 mg PO DAILY 06/20/23 norethindrone (contraceptive) 0.35 0.35 mg PO DAILY 06/20/23 mg tablet vortioxetine 10 mg tablet 10 mg PO DAILY 06/20/23 (Trintellix) Previous Rx's ?Medication ?Instructions ?Recorded albuterol sulfate 90 mcg/actuation 2 puff inhalation Q6H PRN 09/10/20 aerosol inhaler (ProAir HFA) shortness of breath or wheezing #8.5 grams albuterol sulfate 0.63 mg/3 mL 0.63 mg (3 mL) inhalation QID PRN 04/12/23 solution for nebulization shortness of breath or wheezing #75 mL albuterol sulfate 90 mcg/actuation 2 inh inhalation Q6H #1 ea 04/12/23 breath activated powder inhaler,sensor (Proair Digihaler) albuterol sulfate 2.5 mg/3 mL 2.5 mg (3 mL) inhalation Q4H PRN 06/20/23 (0.083 %) solution for nebulization shortness of breath or wheezing #90 mL albuterol sulfate 90 mcg/actuation 1 puff inhalation QID PRN 06/20/23 aerosol inhaler shortness of breath or wheezing #8.5 grams benzonatate 200 mg capsule 200 mg PO BID-TID PRN cough #14 06/20/23 caps amoxicillin 875 mg-potassium 1 tab PO BID #14 tabs 07/13/23 clavulanate 125 mg tablet azithromycin 500 mg tablet 500 mg PO DAILY 7 days #7 tabs 07/13/23 prednisone 50 mg tablet 50 mg PO DAILY #4 tabs 07/13/23 albuterol sulfate 0.63 mg/3 mL 0.63 mg (3 mL) inhalation Q4-6H 08/29/23 solution for nebulization PRN shortness of breath or wheezing #75 mL albuterol sulfate 90 mcg/actuation 2 puff inhalation Q6H PRN 08/29/23 aerosol inhaler shortness of breath or wheezing #6.7 grams budesonide-formoterol HFA 80 1 puff inhalation BID #10.2 grams 08/29/23 mcg-4.5 mcg/actuation aerosol inhaler (Symbicort) prednisone 10 mg tablets in a dose 10 mg PO DIRECTED #39 ea 08/29/23 pack albuterol sulfate 90 mcg/actuation 2 puff inhalation Q4-6H PRN 01/24/24 aerosol inhaler (Proventil HFA) shortness of breath or wheezing #8.5 grams prednisone 20 mg tablet 60 mg (3 x 20 mg) PO DAILY #12 tabs 01/24/24 Allergies Allergy/AdvReac Type Severity Reaction Status Date / Time Sulfa (Sulfonamide Allergy Severe SHORTNESS Verified 01/23/24 21:52 Antibiotics) OF BREATH, [SULFA(SULFONAMIDE SWELLING ANTIBIOTICS)] ALL OVER, anaphylaxis bee pollen [BEE STINGS] Allergy Unknown SWELLING Verified 01/23/24 21:52 mushroom [MUSHROOM] Allergy Unknown ANAPHYLAXIS Verified 01/23/24 21:52 RAISIN Allergy Intermediate HIVES, Uncoded 01/23/24 21:52 THROAT SWELLING bees Allergy Unknown anaphylaxis Uncoded 01/23/24 21:52 mushrooms Allergy Unknown anaphylaxis Uncoded 01/23/24 21:52 raisins Allergy Unknown anaphylaxis Uncoded 01/23/24 21:52 Review of Systems Review of Systems: Yes all other systems are reviewed and are negative Neurologic: Denies Sensory deficit (Neuro) PMFSH Past Medical History Medical History Asthma Surgical History Tubal ligation status Social History Social History Alcohol intake: current Alcohol intake frequency: holidays/special occasions only Patient Tobacco Use Status: Current everyday Tobacco user Smoked in Last 30 Days: Yes Use of substances other than those prescribed or required for medical reasons: Yes Substance Use Type: Marijuana Substance Use Frequency: Occasionally Advance Directives: No Advance Directives Information Provided: No Do you have a plan to hurt others: No Plan Patient : No Current occupation: right hand dominant Physical Exam ED Vital Signs: Vital Signs - 24 hr 01/23/24 21:51 01/23/24 23:34 01/24/24 00:59 Temperature 98.6 F 98.7 F Pulse Rate 120 H 111 H Respiratory Rate 20 26 H Blood Pressure 151/90 H 137/63 Pulse Oximetry 98 96 97 Oxygen Delivery Method Room Air Room Air 01/24/24 02:12 01/24/24 03:19 01/24/24 04:01 Temperature 98.7 F Pulse Rate 101 H 102 H 94 Respiratory Rate 16 18 20 Blood Pressure 120/86 122/76 Pulse Oximetry 97 97 Oxygen Delivery Method Room Air BMI result Body Mass Index 0.0 Const Other: female looking older than stated age Nutritional Appearance: average body habitus Orientation/consciousness: oriented to person and patient oriented x3 Limitations: no limitations HENMT Head: Yes normal to inspection Ears: external ears normal General nose exam: Normal external nose present Mouth: Normal oral and palatal mucosa present and oropharynx normal Throat: Yes posterior oropharynx normal Eyes General: appearance normal, both eyes and all related structures Neck Neck: Yes normal visual inspection Chest Chest palpation & inspection: normal inspection of the chest Resp Other: Diffuse wheezing and cough Cardio Jugular venous distension: no JVD Rate: regular rate Rhythm: regular rhythm Heart sounds: S1 normal heart sound present and S2 normal heart sound present GI Inspection: Yes normal to inspection Palpation (GI): Soft to palpation, nontender and No hepatosplenomegaly present Auscultation: normal bowel sounds General: Yes no CVA tenderness Back/Spine/Pelvis Back: no CVA tenderness Skin General skin exam: no rashes or lesions noted Neuro General: oriented to person and patient oriented x3 Cranial nerves: Yes CN's II-XII intact bilaterally Motor exam (neuro): 5/5 motor strength present throughout Sensory Exam: No Sensory deficit (Neuro) Extrem General: Yes normal to inspection Psych Appearance: grossly normal Course Reevaluation(s) Reevaluation #1: patient received prednisone and albuterol with improvement Time: 04:03 Medications Administered Discontinued Medications Generic Name Dose Route Start Last Admin Trade Name Freq PRN Reason Stop Dose Admin Albuterol/Ipratropium 3 ml 01/24/24 03:05 01/24/24 03:17 Albuterol/Iprat 2.5/0.5mg 3 Ml Ampul.Neb INHALE 01/24/24 03:06 3 ml ONCE ONE Administration Prednisone 60 mg 01/24/24 03:05 01/24/24 03:23 Prednisone 20 Mg Tablet PO 01/24/24 03:06 60 mg ONCE ONE Administration Medical Decision Making Differential Diagnosis Differential Diagnoses: The differential diagnosis associated with the presentation includes (pneumonia, cardiac ischemia, copd exacerbation, flu, covid rsv) Admission/Observation Consideration of admission/observation: Escalation of care including admission/observation considered (upon arrival patient considered for admission) Lab Data 01/23/24 22:04 01/23/24 22:04 Labs: Lab Results 01/23/24 Range/Units 22:04 WBC 12.2 H (4.8-10.8) X10*3/uL RBC 4.57 (4.20-5.50) X10*6/uL Hgb 12.8 (12.0-16.0) g/dl Hct 37.8 (37.0-47.0) % MCV 82.7 (80.0-98.0) fL MCH 28.0 (27.0-33.0) pg MCHC 33.9 (31.0-35.0) g/dl RDW 14.8 (11.0-16.0) % Plt Count 378 (160-400) X10*3/uL MPV 9.3 L (9.4-12.3) fL Immature Gran % (Auto) 0.4 (0.0-0.4) % Neut % (Auto) 70.3 (45-73) % Lymph % (Auto) 18.5 L (20-40) % [place] % (Auto) 5.3 (2-11) % Eos % (Auto) 4.5 H (0-4) % Baso % (Auto) 1.0 (0-2) % Lymph # (Auto) 2.3 (1.2-4.9) X10*3/uL [place] # (Auto) 0.6 (0.1-1.2) X10*3/uL Eos # (Auto) 0.6 H (0.0-0.4) X10*3/uL Baso # (Auto) 0.1 (0.0-0.2) X10*3/uL Abs Immat Gran (auto) 0.05 H (0.00-0.03) X10*3/uL Absolute Neuts (auto) 8.6 H (2.0-8.3) x10*3/uL Absolute Nucleated RBC 0.000 (0.0-0.012) X10*3/uL Nucleated RBC % (auto) 0.0 (0.0-0.2) /100WBC Sodium 139 (135-145) mmol/L Potassium 3.7 (3.3-5.1) mmol/L Chloride 109 H (96-108) mmol/L Carbon Dioxide 21 L (22-29) mmol/L Anion Gap 13 (12-20) BUN 9 (9-16) mg/dL Creatinine 0.81 (0.5-1.4) mg/dL Estim Creat Clear Calc 102.1 Estimated GFR > 60 Random Glucose 105 (60-115) mg/dL Calcium 8.4 D (8.4-10.2) mg/dL Troponin I High Sens < 2.7 (<3.5-17.0) ng/L Influenza Type A (PCR) NEGATIVE (Negative) Influenza Type B (PCR) NEGATIVE (Negative) RSV RNA Qual (PCR) NEGATIVE (Negative) SARS-CoV-2 RNA (RT-PCR) NEGATIVE (Negative) Independent Interpretation I performed an independent interpretation of an: EKG (sinus tachycardia rate 110, no st or twave changes) and Plain X-Ray (CXR: no infiltrate) Independent Historian Clinical information obtained from an independent historian. History obtained from or confirmed by: Spouse Prescription Management I considered prescription management with: Antibiotic (no evidence of pneumonia on xray) Chronic Conditions Patient?s care impacted by: Other (copd) Social Determinants Patient?s care significantly limited by Social Determinants of Health including: Low income Discharge Plan Discharge Clinical Impression: Chronic obstructive airway disease Patient Disposition: Home, Self-Care Instructions: COPD (Chronic Obstructive Pulmonary Disease) (ED), Chronic Bronchitis (ED) Prescriptions: New prednisone 20 mg tablet 60 mg PO DAILY Qty: 12 0RF albuterol sulfate [Proventil HFA] 90 mcg/actuation HFA aerosol inhaler 2 puff inhalation Q4-6H PRN (Reason: shortness of breath or wheezing) Qty: 8.5 0RF No Action amoxicillin-pot clavulanate 875-125 mg tablet 1 tab PO BID Qty: 14 0RF prednisone 50 mg tablet 50 mg PO DAILY Qty: 4 0RF azithromycin 500 mg tablet 500 mg PO DAILY 7 Days Qty: 7 0RF albuterol sulfate [ProAir HFA] 90 mcg/actuation HFA aerosol inhaler 2 puff inhalation Q6H PRN (Reason: shortness of breath or wheezing) Qty: 8.5 2RF Proair Digihaler 90 mcg/actuation aero powdr breath act w/sensor 2 inh inhalation Q6H Qty: 1 0RF albuterol sulfate 0.63 mg/3 mL solution for nebulization 0.63 mg inhalation QID PRN (Reason: shortness of breath or wheezing) Qty: 75 0RF Trintellix 10 mg tablet 10 mg PO DAILY norethindrone (contraceptive) 0.35 mg tablet 0.35 mg PO DAILY cetirizine 10 mg tablet 10 mg PO DAILY benzonatate 200 mg capsule 200 mg PO BID-TID PRN (Reason: cough) Qty: 14 0RF albuterol sulfate 90 mcg/actuation HFA aerosol inhaler 1 puff inhalation QID PRN (Reason: shortness of breath or wheezing) Qty: 8.5 0RF albuterol sulfate 2.5 mg /3 mL (0.083 %) solution for nebulization 2.5 mg inhalation Q4H PRN (Reason: shortness of breath or wheezing) Qty: 90 0RF prednisone 10 mg tablets,dose pack 10 mg PO DIRECTED Qty: 39 0RF Rx Instructions: take 60mg for 3 days, then 40mg for 3 days, then 20mg for 3 days, then 10mg for 3 days albuterol sulfate 90 mcg/actuation HFA aerosol inhaler 2 puff inhalation Q6H PRN (Reason: shortness of breath or wheezing) Qty: 6.7 1RF budesonide-formoterol [Symbicort] 80-4.5 mcg/actuation HFA aerosol inhaler 1 puff inhalation BID Qty: 10.2 1RF albuterol sulfate 0.63 mg/3 mL solution for nebulization 0.63 mg inhalation Q4-6H PRN (Reason: shortness of breath or wheezing) Qty: 75 0RF Print Language: Hebrew
[2024-01-24] MEDS: Albuterol/Iprat 2.5/0.5MG 3 ML AMPUL.NEB INHALE (03:17)
[2024-01-24 03:19] VITALS: PULSE 102; RESP 18; O2SAT 97
[2024-01-24] MEDS: predniSONE 20 MG TABLET 60 MG PO (03:23)
[2024-01-24 04:01] VITALS: BP 122/76; PULSE 94; RESP 20; TEMP 37.1; O2SAT 97
[2024-01-24 04:09] VITALS: BP 122/76; PULSE 94; RESP 20; TEMP 37.1; O2SAT 97
== END 2024-01-24 04:13 | disposition home or self-care (01) ==
PROVIDERS: Emergency Provider Emergency Medicine; PCP Family Medicine
DX: J98.8 Other specified respiratory disorders (principal); R05.9 Cough, unspecified; R06.02 Shortness of breath; J45.909 Unspecified asthma, uncomplicated; Z03.818 Encounter for observation for suspected exposure to other biological agents ruled out; Z79.899 Other long term (current) drug therapy
CPT/HCPCS: 0241U; 36415; 71046; 80048; 84484; 85025; 93005; 94640; 99284; 99285

== ENCOUNTER → 2024-01-23 21:55 | Outpatient (BNV) | payer OTHER, SELFPAY | PROVIDERS: Emergency Provider Emergency Medicine; PCP Family Medicine; Visit Provider Internal Medicine | DX: R00.0 Tachycardia, unspecified (principal) | CPT/HCPCS: 93010 ==

== ENCOUNTER 2024-01-30 12:09 | Outpatient (AMB) | payer OTHER, SELFPAY ==
--- NOTE | 2024-01-30 12:30 | MHC.OFFWIV ---
Intake Vital Signs 01/30/24 12:41 Weight 173 lb BP 118/68 Blood Pressure Location Rt brachial Position Sitting Respiration 16 Pulse 111 H Pulse Source Pulse Oximeter Temp 98.8 F Temp Source Oral Pulse Oximetry (%) 95 Oxygen Delivery Method Room Air Intake Visit Reasons: asthma issues Intake Note: patient here c/o asthma acting up Patient Tobacco Use Status: Current everyday Tobacco user High Rigger Required: No Is last menstrual period known: Yes Last menstrual period: 01/26/24 Post menopausal: No Patient : No Allergies Sulfa (Sulfonamide Antibiotics) [SULFA(SULFONAMIDE ANTIBIOTICS)] Allergy (Severe, Verified 01/30/24 12:35) SHORTNESS OF BREATH, SWELLING ALL OVER, anaphylaxis bee pollen [BEE STINGS] Allergy (Unknown, Verified 01/30/24 12:35) SWELLING mushroom [MUSHROOM] Allergy (Unknown, Verified 01/30/24 12:35) ANAPHYLAXIS shell fish Allergy (Severe, Uncoded 01/30/24 12:35) Anaphylaxis RAISIN Allergy (Intermediate, Uncoded 01/23/24 21:52) HIVES, THROAT SWELLING bees Allergy (Unknown, Uncoded 01/23/24 21:52) anaphylaxis mushrooms Allergy (Unknown, Uncoded 01/23/24 21:52) anaphylaxis raisins Allergy (Unknown, Uncoded 01/23/24 21:52) anaphylaxis Do you need a note to return to daycare/school/sports/work: No HPI HPI Comments History of Present Illness Details 38-year-old female, accompanied by her boyfriend, presents with complaints of shortness of breath She was [place] [facility] [place] for 3 weeks of on and off shortness of breath. She received prednisone and albuterol with improvement. She was discharged with prednisone 60 mg daily x 4 days and Proventil HFA inhaler 2 puffs every 4-6 hours as needed. She is also on Symbicort 1 puff twice daily and albuterol via nebulizer She reports on/off shortness of breath and wheezing since July. Her symptoms have progressively worsened. She notes that her symptoms resolved while she was on prednisone. She has been using frequently proventil and albuterol via nebulizer with some relief. She ran out of Symbicort refills a few weeks ago. She has not been see by a PCP, Myrna O'Tiffanie, for about 2 years. She has been utilizing walk-in care. She smokes half a pack of cigarettes daily and has been smoking for aobut 10 years. Her psychiatrist ordered nicotine patch for smoking cassation but was not approved by her health plan [facility] Medical History Asthma Surgical History Tubal ligation status Social History Alcohol intake: current Alcohol intake frequency: holidays/special occasions only Patient Tobacco Use Status: Current everyday Tobacco user Substance Use Type: Marijuana Current occupation: right hand dominant Female Reproductive History Menstrual Date of last menstrual period: 01/26/24 Review of Systems Const Details: Denies chills, Denies fatigue, Denies fever(s), Denies headache(s) and Denies weakness Cardiac Denies chest pain, Denies claudication, Denies leg edema, Denies lightheadedness, Denies palpitations, Denies orthopnea and Denies other (Loss of consciousness) Resp Denies cough, Denies excessive phlegm production, Reports dyspnea, Denies snoring and Reports wheezing Physical Exam Vital Signs: Last Vital Signs Temp 98.8 F 01/30/24 12:41 Pulse 111 H 01/30/24 12:41 Resp 16 01/30/24 12:41 BP 118/68 01/30/24 12:41 Pulse Ox 95 01/30/24 12:41 Oxygen Delivery Method Room Air 01/30/24 12:41 Const Other: General: comfortable and no acute distress Orientation/consciousness: patient oriented x3 Chest Chest palpation & inspection: normal inspection of the chest Resp Auscultation: Slight wheezing to auscultation bilaterally Cardiac Palpation: normal PMI Heart sounds: S1 normal heart sound present, S2 normal heart sound present, no gallops, no murmur, no rubs Assessment & Plan Assessment & Plan (1) Asthma exacerbation: Code(s): J45.901 - Unspecified asthma with (acute) exacerbation Plan: She reports on/off shortness of breath and wheezing since July. Her symptoms have progressively worsened. Albuterol inhaler providing some relief. She ran out of Symbicort refills a few weeks ago Lung sound slight wheezing bilaterally Symbicort one puff twice daily refilled. Advised to use as prescribed Continue to use albuterol inhalers/nebulizer as prescribed Allergies may be a contributing factor. Cetirizine refilled. Advised to take as prescribed Cigarette smoking may also be a trigger. Smoking cessation encouraged Encouraged to establish care with a PCP Return with worsening or new symptoms Verbalized understanding and agreed with the treatment plan Medications: Changed From cetirizine 10 mg PO DAILY To cetirizine 10 mg PO DAILY 30 tabs 1RF 30 days Refilled budesonide-formoterol 80-4.5 mcg/actuation (Symbicort) 1 puff inhalation BID 10.2 grams 1RF Coding Level of Care Code Est Pt Level 4 (85588) Diagnoses Asthma exacerbation J45.901
[2024-01-30 12:41] VITALS: BP 118/68; PULSE 111; RESP 16; TEMP 37.1; O2SAT 95
== END 2024-01-30 13:05 | disposition home or self-care (01) ==
LOC: HO.HMCWIW 12:09
PROVIDERS: PCP Family Medicine; Visit Provider Nurse Practitioner Family
DX: J45.901 Unspecified asthma with (acute) exacerbation (principal)

== ENCOUNTER → 2024-01-30 12:09 | Outpatient (BNVA) | payer OTHER, SELFPAY | PROVIDERS: PCP Family Medicine; Visit Provider Family Medicine | DX: J45.901 Unspecified asthma with (acute) exacerbation (principal) | CPT/HCPCS: 99212 ==

== ENCOUNTER 2024-02-07 08:25 | Outpatient (AMB) | payer OTHER, SELFPAY ==
--- NOTE | 2024-02-07 08:29 | A.OFFPC_ITS ---
Vital Signs 02/07/24 08:39 02/07/24 09:50 Height 5 ft 3 in Weight 176 lb 4 oz BMI 31.2 BP 120/77 Blood Pressure Location Rt brachial Position Sitting Respiration 16 Pulse 97 98 Pulse Source Pulse Oximeter Pulse Oximeter Temp 98.2 F Temp Source Temporal Artery Scan Pulse Oximetry (%) 98 100 Oxygen Delivery Method Room Air Room Air Intake Visit Reasons: Transfer [place] [facility] Intake Note: patient here for transfer of care from [facility]. Betting Agency Counter Clerk Required: No Is last menstrual period known: Yes Last menstrual period: 01/21/24 Post menopausal: No Patient : No Allergies Sulfa (Sulfonamide Antibiotics) [SULFA(SULFONAMIDE ANTIBIOTICS)] Allergy (Severe, Verified 02/07/24 09:05) SHORTNESS OF BREATH, SWELLING ALL OVER, anaphylaxis bee pollen [BEE STINGS] Allergy (Unknown, Verified 02/07/24 09:05) SWELLING mushroom [MUSHROOM] Allergy (Unknown, Verified 02/07/24 09:05) ANAPHYLAXIS shell fish Allergy (Severe, Uncoded 01/30/24 12:35) Anaphylaxis RAISIN Allergy (Intermediate, Uncoded 01/23/24 21:52) HIVES, THROAT SWELLING bees Allergy (Unknown, Uncoded 01/23/24 21:52) anaphylaxis mushrooms Allergy (Unknown, Uncoded 01/23/24 21:52) anaphylaxis raisins Allergy (Unknown, Uncoded 01/23/24 21:52) anaphylaxis Medication List - Last Reconciled 02/07/24 by Coleen García, FUR CUTTING MACHINE OPERATOR- albuterol sulfate 90 mcg/actuation (Proventil HFA) 2 puffs inhalation Q4-6H PRN albuterol sulfate 90 mcg/actuation 2 puffs inhalation Q6H PRN albuterol sulfate 0.63 mg (3 mL) inhalation Q4-6H PRN budesonide-formoterol 80-4.5 mcg/actuation (Symbicort) 1 puff inhalation BID cetirizine 10 mg PO DAILY 30 days norethindrone (contraceptive) 0.35 mg PO DAILY vortioxetine (Trintellix) 10 mg PO DAILY Tobacco use date assessed: 02/07/24 Dental Screening Dental Screen Date: 02/07/24 Did you have a dental visit in the last 12 months?: No Did you have a dental problem in the last 6 months where you did not have access to dental care?: No Was dental information given to patient?: Patient has dentist HPI HPI Comments History of Present Illness Details 38 y/o F with moderate persistent asthma , seasonal allergies, ASHUTOSH, MDD, s/p fracture of 5th metacarpal bone L hand, current every day smoker, daily marijuana use, pulmonary nodules, obesity s/p tubal ligation, c section Health Maintenance Tdap 2018 PPSV 23 2017 Pap Flu declined [facility] Here today to reestablish care. I was her primary care provider previously. Her chief complaint is that of moderate persistent asthma exacerbation. Reports that her asthma has been uncontrolled. She has had several emergency room visits. The most recent being 01/23/2024 at [facility]. See below for details. The patient reports that she has albuterol on hand and has been using. Unfortunately she was not able to get her Symbicort. Reports that it is not due for refill until February. She feels short of breath, has wheezing, productive cough that is nagging, she continues to smoke. He is not active with a payable processor at this time. Was previously on Atrovent which provided great relief for her. Declined flu vaccine. She also did suffer a fracture of her left 5th metacarpal bone and and we will be seeing Orthopedics on Sunday at [facility]. ASHUTOSH/MDD managed by outside prescriber, sx stable on current meds. Note reviewed [address] [address] XRay Report Signed Patient: Kailey Ballard MR#: [id number] : 1985 Acct:[id number] Age/Sex: 38 / F ADM Date: 01/23/24 Loc: HO.ED Attending Dr: Ordering Physician: Generic ED Physician Date of Service: 01/23/24 Procedure(s): XR chest 2V Accession Number(s): [id number] cc: Generic ED Physician; Physician,Unknown ~ EXAMINATION: XR CHEST CLINICAL INFORMATION: Cough, shortness of breath. COMPARISON: Chest x-ray August 29, 2023. CT chest September 12, 2023 TECHNIQUE: 2 views of the chest were obtained. FINDINGS: There are linear and hazy bilateral perihilar airspace opacities. This is similar in appearance to the CT chest July 13, 2023. No pleural effusion. No pneumothorax. XR/XR chest 2V IMPRESSION: Linear and hazy bilateral perihilar airspace opacities. CT Scan 07/13/23 CT/CT chest wo IV con IMPRESSION: 1. Bronchial wall thickening with perib ronchial airspace opacities in the lower lobes and right upper lobe concerning for an atypical pneumonia. 2. A few pulmonary nodules are noted, l argest measuring up to 0.5 cm. Following Fleischner Society recommendations, follow-up CT chest in 3-6 months is recommended. Exam Awake alert oriented, appears older than stated age, no acute distress, accompanied by boyfriend Mildly tachycardic but regular rhythm Coarse inspiratory expiratory wheezes throughout, congested cough noted during exam without distress DuoNeb updraft provided at the time of the office visit with great improvement LS with faint exp wheezes throughout, improved airflow, pt reports improved breathing. Plan Refer to pulmonology Refill Symbicort. Start Atrovent 2 puffs inhaled TID, continue with albuterol nebulizer and HFA Declined flu vaccine Start azithromycin Smoking cessation Repeat chest x-ray in about 4 weeks with an office visit to follow. Sooner as needed. This note is constructed using voice recognition software. While every effort has been made to ensure accuracy in boring and filling machine operator, still errors may have been included Sometimes, these errors may affect the content or meaning of the given sentence . Total time spent caring for the patient today was 45 minutes. This includes time spent before the visit reviewing the chart, time spent during the visit, and time spent after the visit on documentation [facility], [facility] Medical History (Updated 02/07/24 @ 09:53 by Coleen García, [facility]) Depression Anxiety Acid reflux delivery delivered Asthma Surgical History Tubal ligation status Family History (Updated 02/07/24 @ 08:48 by Yusra Guillen) Father Alcohol abuse Brother FH: mental illness Sister FH: mental illness Lymphoma Mother Asthma Social History Housing: House Alcohol intake: current Alcohol intake frequency: holidays/special occasions only Patient Tobacco Use Status: Current everyday Tobacco user e-Cigarette/Vaping Use: Never Used Substance Use Type: Marijuana service: No Current occupational status: unemployed Current occupation: right hand dominant Current occupational exposures/hazards: No Cognitive needs: No Hearing needs: No Vision needs: Yes Female Reproductive History Menstrual Date of last menstrual period: 01/21/24 Questionnaire PHQ-9 Over the last 2 weeks, how often have you been bothered by any of the following problems? 1. Little interest or pleasure in doing things: not at all 2. Feeling down, depressed, or hopeless: not at all 3. Trouble falling or staying asleep, or sleeping too much: not at all 4. Feeling tired or having little energy: not at all 5. Poor appetite or overeating: not at all 6. Feeling bad about yourself - or that you are a failure or have let yourself or your family down: not at all 7. Trouble concentrating on things, such as reading the newspaper or watching television: not at all 8. Moving or speaking so slowly that other people could have noticed. Or the opposite - being so fidgety or restless that you have been moving around a lot more than usual: not at all 9. Thoughts that you would be better off or of hurting yourself in some way: not at all Total score: 0 Depression Screening Interpretation: Negative Depression Screening Done: Yes 74958 - PHQ-9 Billing: Yes Source: Developed by Drs. Andi Rodríguez, Ria Mueller, Dax Ayala and colleagues, with an educational óscar from [employer]. Thrive Questionnaire Date Thrive assessed: 02/07/24 I am a: Patient What is your living situation today?: I have a steady place to live Within the past 12 months, did the food you bought not last and you didn't have the money to get more?: Never true Within the past 12 months, did you worry whether your food would run out before you got money to buy more?: Never true Do you have trouble paying for medicines?: No Do you have trouble getting transportation to medical appointments?: No Do you have trouble paying your heating and electricity bill?: No Do you have trouble taking care of your child, family member or friend?: No Do you have trouble with day-to-day activities such as bathing, preparing meals, shopping, managing finances, etc.?: No Are you currently unemployed and looking for a job?: Yes Are you interested in more education?: No Please select the resources that you would like help with: None Currently or been in a relationship where the following occur: No concerns reported THRIVE Score: 0 AUDIT C Alcohol Use Questionnaire (AUDIT-C) 1. How often do you have a drink containing alcohol?: Never Total Score: 0 Score Reviewed/Action Taken: Yes ASHUTOSH-7 AMB Questionnaire ASHUTOSH-7 Date ASHUTOSH - 7 assessed: 02/07/24 Feeling nervous, anxious, or on edge: 1 = Several days Not being able to stop or control worryin = Not at all Worrying too much about different things: 0 = Not at all Trouble relaxin = Not at all Being so restless that it is hard to sit still: 0 = Not at all Becoming easily annoyed or irritable: 0 = Not at all Feeling afraid as if something awful might happen: 0 = Not at all Total ASHUTOSH-7 score (0-4 normal; 5-9 mild; 10-14 moderate; 15-21 severe): 1 Source: Developed by Drs. Andi Rodríguez, Ria Mueller, Dax Ayala and colleagues, with an educational óscar from [employer]. ASHUTOSH-7 Assessment Billing ASHUTOSH-7 Assessment Tool: ASHUTOSH-7 Assessment 51459 ACT Questionnaire In the past 4 weeks, how much of the time did your asthma keep you from getting as much done at work, school or at home?: Most of the time During the past 4 weeks, how often have you had shortness of breath?: More than once a day During the past 4 weeks, how often did your asthma symptoms wake you up at night or earlier than usual in the morning?: 4 or more nights a week During the past 4 weeks, how often have you had to use your rescue inhaler or nebulizer medication?: More than 3 times per day How would you rate your asthma control during the past 4 weeks?: Not controlled at all ACT Interpretation: Positive ACT Branch: Change in medication Score: 6 Physical exam (Primary Care) Vital Signs: Last Vital Signs Temp 98.2 F 02/07/24 08:39 Pulse 97 02/07/24 08:39 Resp 16 02/07/24 08:39 BP 120/77 02/07/24 08:39 Pulse Ox 98 02/07/24 08:39 Oxygen Delivery Method Room Air 02/07/24 08:39 BMI result Body Mass Index 31.2 BMI Assessment/Plan discussion: High BMI High, discussed plan: lifestyle Tobacco/Smoking Status: Tobacco use Status Tobacco use date assessed 02/07/24 02/07/24 08:42 Patient Tobacco Use Status Current everyday Tobacco 02/07/24 08:32 e-Cigarette/Vaping Use Never Used 02/07/24 08:42 Are you ready to quit: No Tobacco cessation counseling provided: Yes Items discussed: Nicotine replacement, QuitWorks and Other Relapse Prevention: discussed the importance of a supportive environment, di scussed extending NRT, discussed negative mood or depression after quitting, weight gain after smoking is common and discussed dietary, exercise and/or lifestyle changes Number of minutes spent counselin CPT code: 49341 - 4-10 Minutes PHQ-9: PHQ-9 Score PHQ-9: Total score 0 02/07/24 08:42 Depression Screening Interpretation: Negative Thrive Assessment: Date of Thrive Assessment Date Thrive assessed 02/07/24 02/07/24 08:42 Currently or been in a relationship where the following occur: No concerns reported Office Procedures Nebulizer Treatment Nebulizer Treatment 38163-Kdmprngqp/MDI RX initial, or Nebulizer Subsequent Treatment Nebulizer Treatment Nebulizer Treatment 01232-Vtfzakcdi/MDI RX initial, or Nebulizer Subsequent Treatment Office Meds ipratropium 0.5 mg-albuterol 3 mg (2.5 mg base)/3 mL nebulization soln Performing Provider: JACKSON Shah Performing Location: [facility] Administered by: JACKSON Shah on 02/07/24 09:21 Dose Route Admin Location Dispensed Lot Number Expiration Date [facility] Career Manager 3 mL inhalation 3 mL [id number] 08/23/25 90974-686-15 [employer] Coding Level of Care Code Est Pt Level 5 (39925) Complex EM visit Add On G2211 Diagnoses Tobacco dependence F17.200 BMI 31.0-31.9,adult Z68.31 Class 1 obesity due to excess calories with serious comorbidity and body mass index (BMI) of 31.0 to 31.9 in adult E66.811; E66.09; Z68.31 Obesity type: due to excess calories Moderate persistent asthma with acute exacerbation J45.41 Asthma complication type: with acute exacerbation ASHUTOSH (generalized anxiety disorder) F41.1 Moderate episode of recurrent major depressive disorder F33.1 Major depression episode severity: moderate CPT Codes Nebulizer Treatment - Nebulizer Treatment, initial or subsequent: 13456- Nebulizer/MDI RX initial, or Nebulizer Subsequent Treatment ([id number]) Nebulizer Treatment - Nebulizer Treatment, initial or subsequent: 75393- Nebulizer/MDI RX initial, or Nebulizer Subsequent Treatment ([id number]) Additional Codes ASHUTOSH-7 Assessment Billing - ASHUTOSH-7 Assessment Tool: ASHUTOSH-7 Assessment 65041 ([id number]) PHQ-9 - 34834 - PHQ-9 Billing: Yes ([id number]) Vital Signs *Quality* - CPT code: 93931 - 4-10 Minutes ([id number]) Asthma Control Questionnaire - ACT Interpretation: Positive ([id number]) Assessment & Plan Assessment & Plan (1) Tobacco dependence: Code(s): F17.200 - Nicotine dependence, unspecified, uncomplicated Category: Medical Plan: Smoking Cessation How to Quit There are a lot of ways to quit smoking and many resources to help you. Family members, friends, and co-workers may be supportive or encouraging, but to be successful the desire and commitment to quit must be your own. Most people who have been able to successfully quit smoking made at least one unsuccessful attempt in the past. Try not to view past attempts to quit as failures, but rather as learning experiences. Stopping smoking or using smokeless tobacco is difficult, but anyone can do it. Know the symptoms to expect when you stop. Common symptoms include: ? An intense craving for nicotine ? Anxiety, tension, restlessness, frustration, or impatience ? Difficulty concentrating ? Drowsiness or trouble sleeping, as well as bad dreams and nightmares ? Drowsiness and trouble sleeping ? Headaches ? Increased appetite and weight gain ? Irritability or depression How severe your symptoms are depends on how long you smoked and how many cigarettes you smoked each day. Feel ready to quit? ? First and foremost, set a quit date and quit completely on that day. Before your quit date, you may begin reducing your cigarette use. But remember, there is no safe level of cigarette smoking. ? List the reasons why you want to quit. Include both short- and long-term benefits. ? Identify the times you are most likely to smoke. For example, do you tend to smoke when feeling stressed or down? When out at night with friends? While drinking coffee or alcohol? When bored? While driving? Right after a meal or sex? During a work break? While watching TV or playing cards? When you are with other smokers? ? Let all of your friends, family, and co-workers know of your plan to stop smoking and your quit date. Just being aware that they know what you're going through can be helpful, especially when you are grumpy. ? Get rid of all your cigarettes just before the quit date, and clean out anything that smells like smoke, such as clothes and furniture. Make a plan about what you will do instead of smoking at those times when you are most likely to smoke. ? Be as specific as possible. For example, drink tea instead of coffee -- tea may not trigger the desire for a cigarette. Or, take a walk when you feel stressed. ? Remove ashtrays and cigarettes from the car. Place pretzels or hard candies there instead. Pretend-smoke with a straw. ? Find activities that focus your hands and mind but are not taxing or fattening. Computer games, solitaire, knitting, sewing, and crossword puzzles may help. ? If you normally smoke after eating, find other ways to end a meal. Play a tape or CD, eat a piece of fruit, get up and make a phone call, or take a walk (a good distraction that also luna calories). Make other changes in your lifestyle. ? Change your daily schedule and habits. Eat at different times or eat several small meals instead of three large ones. Sit in a different chair or even a different room. ? Satisfy your oral habits by eating celery or other low-calorie snack, chewing sugarless gum, or sucking on a cinnamon stick. ? Go to public places and restaurants where smoking is prohibited or restricted. ? Eat regular meals and don't eat too much candy or sweet things. ? Get more exercise. Take walks or ride a bike. Exercise helps relieve the urge to smoke. Set short-term quitting goals and reward yourself when you meet them. ? Every day, put the money you normally spend on cigarettes in a jar. Then buy something pleasurable after a period of time. ? Try not to think about all the days ahead you will need to avoid smoking. Take it one day at a time. ? Even one puff or one cigarette will make your desire for more cigarettes even stronger. However, it is normal to make mistakes. So even if you have one cigarette, you don't need to take the next one. Other tips to help you quit smoking and stick to it: ? Enroll in a smoking cessation program (hospitals, health departments, community centers, and work sites often offer programs). Learn about self-hypnosis or other techniques. ? Ask your health care provider about prescription medications that are safe and appropriate for you. ? Find out about nicotine patches, gum, and sprays. The [employer]'s web site -- www.cancer.org -- is an excellent r esource for smokers who are trying to quit, and the [employer] Sm[employer]out can help some smokers kick the habit. Above all, don't get discouraged if you aren't able to quit smoking the first time. Nicotine addiction is a hard habit to break. Try something different next time. Develop new strategies, and try again. Many people take several attempts to finally kick the habit. (2) BMI 31.0-31.9,adult: Code(s): Z68.31 - Body mass index [BMI] 31.0-31.9, adult Category: Medical Plan: . (3) Class 1 obesity with serious comorbidity and body mass index (BMI) of 31.0 to 31.9 in adult: Comment: with asthma & tob dependence Code(s): E66.811 - Obesity, class 1; Z68.31 - Body mass index [BMI] 31.0-31.9, adult Category: Medical Qualifiers: Obesity type: due to excess calories Qualified Code(s): E66.811 - Obesity, class 1; E66.09 - Other obesity due to excess calories; Z68.31 - Body mass index [BMI] 31.0-31.9, adult Plan: . (4) Moderate persistent asthma: Code(s): J45.40 - Moderate persistent asthma, uncomplicated Category: Medical Qualifiers: Asthma complication type: with acute exacerbation Qualified Code(s): J45.41 - Moderate persistent asthma with (acute) exacerbation Plan: . (5) ASHUTOSH (generalized anxiety disorder): Code(s): F41.1 - Generalized anxiety disorder Category: Medical Plan: . (6) MDD (major depressive disorder), recurrent episode: Code(s): F33.9 - Major depressive disorder, recurrent, unspecified Category: Medical Qualifiers: Major depression episode severity: moderate Qualified Code(s): F33.1 - Major depressive disorder, recurrent, moderate Plan: . Plan . Orders: Orders XR chest 2V 03/08/24 J45.40 - Moderate persistent asthma, uncomplicated AMB Nebulizer Treatment Today J45.40 - Moderate persistent asthma, uncomplicated Referrals Pulmonology Referral F17.200 - Nicotine dependence, unspecified, uncomplicated, J45.40 - Moderate persistent asthma, uncomplicated Medications: New nicotine 1 patch transdermal Q24H 28 ea 2RF azithromycin For 250 mg dose pack: take 500 mg today (day 1), then 250 mg for 4 days (days 2-5) PO 5 days 6 tabs 0RF ipratropium bromide 17 mcg/actuation (Atrovent HFA) 2 puffs inhalation TID 12.9 grams 6RF Refilled budesonide-formoterol 80-4.5 mcg/actuation (Symbicort) 1 puff inhalation BID 10.2 grams 3RF albuterol sulfate 0.63 mg (3 mL) inhalation Q4-6H PRN 75 mL 3RF shortness of breath or wheezing Discontinued albuterol sulfate 90 mcg/actuation Discontinued Reason: Duplicate 2 puffs inhalation Q6H PRN 6.7 grams 1RF shortness of breath or wheezing Patient Instructions: Walk-In Care (Urgent Care): We Make it Easy Walk-in for urgent medical issues such as: ? Seasonal Allergies ? Insect Bites ? Cough ? Diarrhea ? Acute Asthma Attacks ? Back, Knee or Joint Pain ? Ear Infection ? Fever without a Rash ? Headaches ? Nausea ? Fabens Eye, Rash or Skin Irritation ? Sore Throat ? Sports Physicals ? Vomiting Most insurances are accepted. Patients do not need to be part of the [facility] to seek care at the walk-in clinic. Locations [facility] , [place] [address] ? [phone] [facility] Walk-In Care in [place] provides services to ages 18 and over. Open Sunday-Sunday: 8 a.m. to 5 p.m. and Sunday: 9 a.m. to 3 p.m.* *Hours may vary due to staffing availability. To confirm Walk-In Care hours in [place], please call [phone]. [address] [place] [address] ? [phone] [facility] Walk-In Care in [place] provides services to ages 12 and over. Open Sunday-Sunday: 8 a.m. to 5 p.m. Hours may vary due to staffing availability. To confirm Walk-In Care hours in [place], please call [phone]. LABORATORY SERVICES: [facility] ? Primary Location [address] [place] [address] Sunday through Sunday 6:00 AM ? 5:00 PM Sunday 7:00 AM ? 11:00 AM* [phone] The [facility] is centrally located near the front entrance of the [facility] for easy outpatient access. Convenient parking is provided for outpatients. *Hours may vary due to staffing availability. To confirm Laboratory hours for any location, please call [phone]. Offsite Location For your convenience, we offer offsite laboratory draw stations at the following locations: [address] [place] [address] ? [address], [address] Sunday through Sunday 7:30 AM ? 1:00 PM* [phone] *Hours may vary due to staffing availability. To confirm Laboratory hours for any location, please call [phone]. [place] ? [address] Sunday through Sunday 6:00 AM ? 3:30 PM* Sunday 6:30 AM ? 3 PM* [phone] *Hours may vary due to staffing availability. To confirm Laboratory hours for any location, please call [phone] [place] [address] Sunday through Sunday 7:30 AM ? 4:00 PM* [phone] *Hours may vary due to staffing availability. To confirm Laboratory hours for any location, please call [phone] [place] [address] Sunday through 9:00 AM ? 4:00 PM* *Hours may vary due to staffing availability. To confirm Laboratory hours for any location, please call [phone]. Appointments are not necessary. Walk-ins are welcome. Like all the departments throughout the [facility], our Lab undergoes frequent reviews to ensure the quality and accuracy of test results, and our staff takes special pride in its status as a nationally accredited facility. Patient Portal: ONE PATIENT. ONE RECORD. BETTER CARE. [facility] has a fully integrated, cutting- edge mobile electronic health information system that has revolutionized the way we care for our patients and manage our organization. This system improves communication and coordination enabling us to provide safe, higher-quality care, and an overall positive experience for staff and patients. Our first priority, as always, is to deliver the highest quality care possible. The system is running in the background supporting that priority. This portal is for all [facility] and [facility] services and practices. If you are experiencing any technical difficulties with enrolling or logging into the Patient Portal please complete the [facility] Patient Portal Technical Support Form. [facility] and [facility] now offers a new secure on-line interactive tool for patients to review their health information ? ?Patient Portal. This interactive web portal will enable patients and their families to take an active role in their care by providing easy, secure access to their health information via the internet. The Patient Portal provides patients with instant access to their health information, including laboratory results, medications, allergies, demographic information, visit history, and more. In addition to managing their own care, parents and health care proxies with authorized consent will appreciate the ability to access the records of those individuals for whom they provide care. Please note: if you wish to gain access (Proxy) to another patient?s portal, you will be required to come to the Medical Records Department in person at [facility]. Both the patient giving proxy access and the proxy will need to provide photo identification and complete the appropriate authorization. The Patient Portal also allows track their appointments online. The [facility] Patient Portal also saves patients time by allowing them to submit updates to their demographic and contact information prior to their visits. Portal email notifications will also alert patients to any new activity on their portal, such as test results and new appointments. In order to initially enroll in the [facility] Patient Portal, you will need to enter s ome required information including the following: * your [facility] Medical Record number * your personal home email address * name * date of Please note: In order to enroll in the [facility] Patient Portal, we need to have your email address on file in your electronic medical record. ?The email address needs to be specific for one person (yourself) in order for your Portal enrollment to be successful. ?You can update your email address in person with our Registration staff when you are registering for a hospital visit. ?Otherwise, you will need to come to the Health Information Management (Medical Records) Department at [facility]. ?We are open from Sunday ? Sunday from 7:30 a.m. ? 4:30 p.m. ?You will be required to present a photo id. Once you have successfully enrolled in the Patient Portal, you will receive a one-time user id and password for the Portal, sent to your email address. ?This will allow you to log into the Patient Portal within 99 hrs and reset your own logon id and password, and define personal security questions. ?Once your permanent login and password have been set, you can log into the [facility] Patient Portal at any time via the blue button above or from the Portal Logon button on any page of the [facility] website. [facility] and [facility] encourage all of our patients to enroll in Patient Portal as it presents a valuable opportunity for patients and their families to actively participate in their care and stay healthy Welcome to [facility]. ?We look forward to working with you.
[2024-02-07 08:39] VITALS: BP 120/77; PULSE 97; RESP 16; TEMP 36.8; O2SAT 98; BMI 31.2
[2024-02-07 09:50] VITALS: PULSE 98; O2SAT 100
== END 2024-02-07 09:34 | disposition home or self-care (01) ==
PROVIDERS: PCP Family Medicine; Visit Provider Nurse Practitioner Family
DX: J45.41 Moderate persistent asthma with (acute) exacerbation (principal); F33.1 Major depressive disorder, recurrent, moderate; F17.200 Nicotine dependence, unspecified, uncomplicated; Z68.31 Body mass index [BMI] 31.0-31.9, adult; E66.811 Obesity, class 1; E66.09 Other obesity due to excess calories; F41.1 Generalized anxiety disorder

== ENCOUNTER → 2024-02-07 08:25 | Outpatient (BNVA) | payer OTHER, SELFPAY | PROVIDERS: PCP Family Medicine; Visit Provider Nurse Practitioner Family | DX: F41.1 Generalized anxiety disorder (principal); F33.1 Major depressive disorder, recurrent, moderate; E66.09 Other obesity due to excess calories; Z68.31 Body mass index [BMI] 31.0-31.9, adult; J45.41 Moderate persistent asthma with (acute) exacerbation; Z71.6 Tobacco abuse counseling | CPT/HCPCS: 94640; 96127; 96160; 99212 ==

== ENCOUNTER 2024-02-15 10:54 | Outpatient (REF) | payer OTHER, SELFPAY | END 2024-02-15 10:55 | disposition home or self-care (01) | LOC: HO.HMGCX 10:54 | PROVIDERS: PCP Nurse Practitioner Family; Visit Provider Nurse Practitioner Family | DX: J45.40 Moderate persistent asthma, uncomplicated (principal) | CPT/HCPCS: 71046 ==

== ENCOUNTER 2024-03-11 09:49 | Outpatient (AMB) | payer OTHER, SELFPAY ==
--- NOTE | 2024-03-11 09:52 | MHC.OFFVIS ---
Vital Signs 03/11/24 09:53 Height 5 ft 3 in Weight 182 lb BMI 32.2 BP 108/76 Blood Pressure Location Rt brachial Position Sitting Pulse 92 Pulse Source Doppler Pulse Oximetry (%) 98 Oxygen Delivery Method Room Air Intake Visit Reasons: moderate asthma Allergies Sulfa (Sulfonamide Antibiotics) [SULFA(SULFONAMIDE ANTIBIOTICS)] Allergy (Severe, Verified 03/11/24 09:57) SHORTNESS OF BREATH, SWELLING ALL OVER, anaphylaxis bee pollen [BEE STINGS] Allergy (Unknown, Verified 03/11/24 09:57) SWELLING mushroom [MUSHROOM] Allergy (Unknown, Verified 03/11/24 09:57) ANAPHYLAXIS shell fish Allergy (Severe, Uncoded 01/30/24 12:35) Anaphylaxis RAISIN Allergy (Intermediate, Uncoded 01/23/24 21:52) HIVES, THROAT SWELLING bees Allergy (Unknown, Uncoded 01/23/24 21:52) anaphylaxis mushrooms Allergy (Unknown, Uncoded 01/23/24 21:52) anaphylaxis raisins Allergy (Unknown, Uncoded 01/23/24 21:52) anaphylaxis HPI HPI moderate asthma: Details: 38-year-old lady, active half a pack-a-day smoker with underlying asthma for approximately 15 years suboptimally controlled on Symbicort, Atrovent, albuterol MDI/nebs referred for pulmonary evaluation. Patient stated that she had several exacerbations over last few months requiring visits added to emergency room [facility] urgent [facility]. She does complain of year round environmental allergies. Patient does have family history of asthma in her asthma. She denies exposure to industrial dusts. [facility] Medical History (Updated 03/11/24 @ 10:12 by Manuel Kang MD) Depression Anxiety Acid reflux delivery delivered Asthma Surgical History Tubal ligation status Family History (Updated 02/07/24 @ 08:48 by Yusra Guillen) Father Alcohol abuse Brother FH: mental illness Sister FH: mental illness Lymphoma Mother Asthma Social History (Updated 03/11/24 @ 09:59 by BUSTER Bolaños) Housing: House Alcohol intake: current Alcohol intake frequency: holidays/special occasions only Patient Tobacco Use Status: Current everyday Tobacco user Tobacco use type: Cigarette Cigarettes Per Day: 10 Years Smoked: started around age 25, 0.5PPD, e-Cigarette/Vaping Use: Never Used Substance Use Type: Marijuana service: No Current occupational status: unemployed Current occupation: right hand dominant Current occupational exposures/hazards: No Cognitive needs: No Hearing needs: No Vision needs: Yes Review of Systems Const Denies daytime sleepiness, Denies excessive sweating, Denies fatigue, Denies fever(s), Denies lethargy, Denies malaise, Denies night sweats, Denies snoring and Denies weight loss Eyes Denies blurry vision and Denies itchy eyes ENT Denies nasal congestion, Denies post nasal drip, Denies sinus pain, Denies sinus pressure and Denies other ( Thrush) Card Denies chest pain, Denies pedal edema, Denies dyspnea, Denies orthopnea and Denies paroxysmal nocturnal dyspnea Resp Denies cough, Denies hemoptysis, Denies excessive phlegm production, Denies dyspnea, Denies snoring and Denies wheezing GI Denies abdominal pain and Denies heartburn Musc Denies myalgias, Denies arthralgias and Denies joint swelling Skin/Breast Denies rash Neuro Denies memory loss and Denies seizure-like activity Psych Denies abnormal sleep pattern, Denies anxiety and Denies memory loss Endo Denies excessive sweating, Denies fatigue and Denies heat intolerance José/Lymph Denies easy bruising Aller/Immun Denies itchy eyes, Denies seasonal rhinorrhea and Denies wheezing Physical Exam Vital Signs: Last Vital Signs Pulse 92 03/11/24 09:53 BP 108/76 03/11/24 09:53 Pulse Ox 98 03/11/24 09:53 Oxygen Delivery Method Room Air 03/11/24 09:53 BMI result Body Mass Index 32.2 Const General: no acute distress and alert Nutritional Appearance: not obese Orientation/consciousness: Other orientation findings ( oriented) HEENT Head: Yes atraumatic Eyes General: appearance normal, both eyes and all related structures Sclerae: sclerae normal EOM: EOMs intact bilaterally Neck Neck: Yes supple Lymphatic: no lymphadenopathy noted Resp Effort & Inspection: normal respiratory effort and no use of accessory muscles Auscultation: clear to auscultation bilaterally Cardio Rate: regular rate Rhythm: regular rhythm Heart sounds: no gallops, no murmurs and no rubs Skin General skin exam: other ( warm) Extrem General: No clubbing, No cyanosis and No edema Assessment & Plan Assessment & Plan (1) Moderate persistent asthma: Code(s): J45.40 - Moderate persistent asthma, uncomplicated Category: Medical Qualifiers: Asthma complication type: with acute exacerbation Qualified Code(s): J45.41 - Moderate persistent asthma with (acute) exacerbation Plan: Suboptimal control on current regimen of Symbicort, Atrovent, albuterol MDI/nebs. Will evaluate for immunologic therapy. Will obtain full PFT. (2) Environmental allergies: Code(s): Z91.09 - Other allergy status, other than to drugs and biological substances Category: Medical Plan: Will obtain IgE level, CBC with differential, and RAST panel for further evaluation. Orders: Orders Complete Blood Count Auto Diff Today J45.41 - Moderate persistent asthma with (acute) exacerbation Resp Allergy Profile Region I Today J45.41 - Moderate persistent asthma with (acute) exacerbation PFT pulmonary function test Today J45.41 - Moderate persistent asthma with (acute) exacerbation Medications: New albuterol sulfate 90 mcg/actuation (ProAir RespiClick) 2 inhalations inhalation Q4-6H PRN 1 ea 6RF shortness of breath or wheezing J45.41 - Moderate persistent asthma with (acute) exacerbation Discontinued albuterol sulfate 90 mcg/actuation (Proventil HFA) Discontinued Reason: Doctor's Order 2 puffs inhalation Q4-6H PRN 8.5 grams 0RF shortness of breath or wheezing Coding Level of Care Code New Pt Level 4 (23230) Diagnoses Moderate persistent asthma with acute exacerbation J45.41 Asthma complication type: with acute exacerbation Environmental allergies Z91.09
[2024-03-11 09:53] VITALS: BP 108/76; PULSE 92; O2SAT 98; BMI 32.2
== END 2024-03-11 10:12 | disposition home or self-care (01) ==
PROVIDERS: PCP Nurse Practitioner Family; Visit Provider Internal Medicine Pulmonary Disease
DX: J45.41 Moderate persistent asthma with (acute) exacerbation (principal); Z91.09 Other allergy status, other than to drugs and biological substances
CPT/HCPCS: 99204

== ENCOUNTER 2024-03-11 09:49 | Outpatient (REF) | payer OTHER, SELFPAY ==
[2024-03-11 10:37] LABS: MANUAL DIFF FLAG NO
[2024-03-11 11:04] LABS: Basophils Absolute Auto 0.1 X10*3/uL (0.0-0.2); Basophils Percent Auto 1.9 % (0-2); Eosinophils Absolute Auto 0.5 X10*3/uL (0.0-0.4); Hematocrit 41.7 % (37.0-47.0); Hemoglobin 13.6 g/dl (12.0-16.0); Imm Gran Abs Auto 0.03 X10*3/uL (0.00-0.03); Imm Gran Pct Auto 0.4 % (0.0-0.4); Lymphocytes Percent Auto 27.3 % (20-40); Mean Corpuscular HGB Conc 32.6 g/dl (31.0-35.0); Mean Corpuscular Hemoglobin 27.4 pg (27.0-33.0); Mean Corpuscular Volume 83.9 fL (80.0-98.0); Mean Platelet Volume 9.4 fL (9.4-12.3); Monocytes Absolute Auto 0.4 X10*3/uL (0.1-1.2); Monocytes Percent Auto 5.4 % (2-11); Neutrophils Absolute Auto 4.2 x10*3/uL (2.0-8.3); Platelet Count 406 X10*3/uL (160-400); Red Blood Count 4.97 X10*6/uL (4.20-5.50); Red Cell Distribution Width 13.9 % (11.0-16.0); White Blood Count 7.3 X10*3/uL (4.8-10.8)
[2024-03-14 06:48] LABS: Class Alternaria alternata 0; Class Aspergillus fumigatus 0; Class Bermuda Grass 0; Class Birch 0; Class Cat Dander 2; Class Cladosporium herbarum 0; Class Cockroach 0; Class Common Ragweed 0; Class Cottonwood 0; Class Derm. pterony 0; Class Dermatophagoides farinae 0; Class Dog Dander 2; Class Elm 0; Class Maple Box Elder 0; Class Mountain Cedar 0; Class Mouse Urine Protein 0; Class Mugwort 0; Class Oak 0; Class Penicillium crysogenum 0; Class Rough Pigweed 0; Class Sheep Sorrel 0; Class Sycamore 0; Class Timothy Grass 0; Class Walnut Tree 0; Class White Ash 0; Class White Mulberry 0; D001 IgE D pteronyssinus <0.10 kU/L; D002 - IgE D farinae <0.10 kU/L; E001 - IgE Cat Dander 2.42 kU/L; E005 - IgE Dog Dander 1.45 kU/L; E072-IgE Mouse Urine <0.10 kU/L; G002 IgE Bermuda Grass <0.10 kU/L; G006 - IgE Timothy Grass <0.10 kU/L; I006-IgE Cockroach, German <0.10 kU/L; Immunoglobulin E 114 kU/L (<OR=114); M001 IgE Penicillium chrysogen <0.10 kU/L; M002 - IgE Cladosporium herbar <0.10 kU/L; M003 - IgE Aspergillus fumigat <0.10 kU/L; M006 - IgE Alternaria alternat <0.10 kU/L; T001 IgE Maple/Box Elder <0.10 kU/L; T003 IgE Common Silver Birch <0.10 kU/L; T006 - IgE Cedar, Mountain <0.10 kU/L; T007 - IgE Oak, White <0.10 kU/L; T008 IgE Elm, American <0.10 kU/L; T010 - IgE Walnut <0.10 kU/L; T011 - IgE Maple Leaf Sycamore <0.10 kU/L; T014 - IgE Cottonwood <0.10 kU/L; T015 - IgE Ash, White <0.10 kU/L; T070 - IgE White Mulberry <0.10 kU/L; W001 - IgE Ragweed, Short <0.10 kU/L; W006 - IgE Mugwort <0.10 kU/L; W014 IgE Pigweed, Common <0.10 kU/L; W018 IgE Sheep Sorrel <0.10 kU/L
== END 2024-03-11 09:50 | disposition home or self-care (01) ==
LOC: HO.LAB 09:49
PROVIDERS: PCP Family Medicine; Visit Provider Internal Medicine Pulmonary Disease
DX: J45.41 Moderate persistent asthma with (acute) exacerbation (principal); Z91.09 Other allergy status, other than to drugs and biological substances
CPT/HCPCS: 36415; 82785; 85025; 86003; 99202

== ENCOUNTER 2024-03-24 08:55 | Outpatient (AMB) | payer OTHER, SELFPAY ==
--- NOTE | 2024-03-24 08:57 | A.OFFPC_ITS ---
Vital Signs 03/24/24 09:02 Height 5 ft 3 in Weight 182 lb BMI 32.2 BP 118/70 Blood Pressure Location Lt brachial Position Sitting Respiration 12 Pulse 95 Pulse Source Pulse Oximeter Pulse Oximetry (%) 97 Oxygen Delivery Method Room Air Intake Visit Reasons: FU asthma Intake Note: follow up asthma Invasive Cardiologist Required: No Allergies Sulfa (Sulfonamide Antibiotics) [SULFA(SULFONAMIDE ANTIBIOTICS)] Allergy (Severe, Verified 03/24/24 09:12) SHORTNESS OF BREATH, SWELLING ALL OVER, anaphylaxis bee pollen [BEE STINGS] Allergy (Unknown, Verified 03/24/24 09:12) SWELLING mushroom [MUSHROOM] Allergy (Unknown, Verified 03/24/24 09:12) ANAPHYLAXIS shell fish Allergy (Severe, Uncoded 03/24/24 09:12) Anaphylaxis RAISIN Allergy (Intermediate, Uncoded 03/24/24 09:12) HIVES, THROAT SWELLING bees Allergy (Unknown, Uncoded 03/24/24 09:12) anaphylaxis mushrooms Allergy (Unknown, Uncoded 03/24/24 09:12) anaphylaxis raisins Allergy (Unknown, Uncoded 03/24/24 09:12) anaphylaxis Medication List - Last Reconciled 03/24/24 by Coleen García, [facility]- albuterol sulfate 90 mcg/actuation (ProAir RespiClick) 2 inhalations inhalation Q4-6H PRN albuterol sulfate 0.63 mg (3 mL) inhalation Q4-6H PRN budesonide-formoterol 80-4.5 mcg/actuation (Symbicort) 1 puff inhalation BID cetirizine (Allergy Relief (cetirizine)) 10 mg PO DAILY dupilumab (Dupixent) 300 mg (2 mL) subcut Q2W ipratropium bromide 17 mcg/actuation (Atrovent HFA) 2 puffs inhalation TID nicotine 1 patch transdermal Q24H norethindrone (contraceptive) 0.35 mg PO DAILY vortioxetine (Trintellix) 10 mg PO DAILY Tobacco use date assessed: 02/07/24 Dental Screening Dental Screen Date: 02/07/24 HPI HPI Comments History of Present Illness Details 38 y/o F with moderate persistent asthma , seasonal allergies, ASHUTOSH, MDD, s/p fracture of 5th metacarpal bone L hand, current every day smoker, daily marijuana use, pulmonary nodules, obesity s/p tubal ligation, c section Health Maintenance Tdap 2019 PPSV 2018 Pap Flu declined [facility] Here today for routine follow up of moderate persistent asthma. Since last office visit she had her initial consult with pulmonology. This consult note was reviewed. The plan is for allergy testing and full pulmonary function tests. She has been approved for Dupixent and we will start this soon. She continues taking her inhalers as directed. At the current time she reports that her asthma is the best controlled that it has been in some time. She does take cetirizine 20 mg daily to help with her allergic component. 10 mg does not seem to cover her allergy symptoms. She continues to work on smoking cessation. She has the patches on hand. She had a repeat chest x-ray done 02/15/2024, the report read is pending at this time. She does complain GERD. Using [id number] PPIs without effect. Has used omeprazole 40 mg in the past with positive effects. Wonders if she can have a prescription for this. She has had a tubal ligation however she reports that she has a regular periods associated with weight gain. She took a home test and this was negative. Wonders if there is anything else that could be causing this. Exam Awake alert oriented, appears older than stated age, no acute distress RRR LS CTAB results: CXR 02/15/24 read pending Plan: Continue care with pulmonology to complete pulmonary function testing and to start Dupixent. Prescription for omeprazole 40 mg p.o. daily to help with GERD Check TSH and hCG to evaluate weight gain. Patient will be called if the chest x-ray or labs are positive and require treatment. Return to the office in 3 months for complete physical exam, sooner as needed Total time spent caring for the patient today was 40 minutes. This includes time spent before the visit reviewing the chart, time spent during the visit, and time spent after the visit on documentation [facility] Medical History (Updated 03/24/24 @ 09:29 by Coleen García [facility]) Depression Anxiety Acid reflux delivery delivered Asthma Surgical History Tubal ligation status Family History (Updated 02/07/24 @ 08:48 by Yusra Guillen) Father Alcohol abuse Brother FH: mental illness Sister FH: mental illness Lymphoma Mother Asthma Social History (Updated 03/11/24 @ 09:59 by Indigo [place] [facility]) Housing: House Alcohol intake: current Alcohol intake frequency: holidays/special occasions only Patient Tobacco Use Status: Current everyday Tobacco user Tobacco use type: Cigarette Cigarettes Per Day: 10 Years Smoked: started around age 25, 0.5PPD, e-Cigarette/Vaping Use: Never Used Substance Use Type: Marijuana service: No Current occupational status: unemployed Current occupation: right hand dominant Current occupational exposures/hazards: No Cognitive needs: No Hearing needs: No Vision needs: Yes Questionnaire PHQ-9 Over the last 2 weeks, how often have you been bothered by any of the following problems? 16951 - PHQ-9 Billing: Patient declined-do not bill Source: Developed by Drs. Andi Rodríguez, Ria Mueller, Dax Ayala and colleagues, with an educational óscar from [employer]. Thrive Questionnaire Date Thrive assessed: 03/24/24 I am a: Patient What is your living situation today?: I have a steady place to live Within the past 12 months, did the food you bought not last and you didn't have the money to get more?: Never true Within the past 12 months, did you worry whether your food would run out before you got money to buy more?: Never true Do you have trouble paying for medicines?: No Do you have trouble getting transportation to medical appointments?: No Do you have trouble paying your heating and electricity bill?: No Do you have trouble taking care of your child, family member or friend?: No Do you have trouble with day-to-day activities such as bathing, preparing meals, shopping, managing finances, etc.?: No Are you currently unemployed and looking for a job?: Yes Are you interested in more education?: No Please select the resources that you would like help with: None Currently or been in a relationship where the following occur: No concerns reported THRIVE Score: 0 ASHUTOSH-7 AMB Questionnaire ASHUTOSH-7 Date ASHUTOSH - 7 assessed: 02/07/24 Source: Developed by Drs. Andi Rodríguez, Ria Mueller, Dax Ayala and colleagues, with an educational óscar from [employer]. ACT Questionnaire In the past 4 weeks, how much of the time did your asthma keep you from getting as much done at work, school or at home?: A little of the time During the past 4 weeks, how often have you had shortness of breath?: 3-6 times a week During the past 4 weeks, how often did your asthma symptoms wake you up at night or earlier than usual in the morning?: Not at all During the past 4 weeks, how often have you had to use your rescue inhaler or nebulizer medication?: Once a week or less How would you rate your asthma control during the past 4 weeks?: Well controlled Score: 20 Physical exam (Primary Care) Vital Signs: Last Vital Signs Pulse 95 03/24/24 09:02 Resp 12 03/24/24 09:02 BP 118/70 03/24/24 09:02 Pulse Ox 97 03/24/24 09:02 Oxygen Delivery Method Room Air 03/24/24 09:02 BMI result Body Mass Index 32.2 Tobacco/Smoking Status: Tobacco use Status Tobacco use date assessed 02/07/24 03/24/24 09:00 Patient Tobacco Use Status Current everyday Tobacco 03/24/24 09:00 Tobacco use type Cigarette 03/24/24 09:00 e-Cigarette/Vaping Use Never Used 03/24/24 09:00 Are you ready to quit: No Tobacco cessation counseling provided: Yes Items discussed: Nicotine replacement, QuitWorks and Other Relapse Prevention: discussed the importance of a supportive environment, discussed extending NRT, discussed negative mood or depression after quitting, weight gain after smoking is common and discussed dietary, exercise and/or lifestyle changes Number of minutes spent counselin CPT code: 48035 - 4-10 Minutes Thrive Assessment: Date of Thrive Assessment Date Thrive assessed 03/24/24 03/24/24 09:00 Currently or been in a relationship where the following occur: No concerns reported Coding Level of Care Code Est Pt Level 5 (80545) Complex EM visit Add On G2211 Diagnoses Moderate persistent asthma with acute exacerbation J45.41 Asthma complication type: with acute exacerbation Tobacco dependence F17.200 Gastroesophageal reflux disease without esophagitis K21.9 Esophagitis presence: without esophagitis Environmental allergies Z91.09 Weight gain R63.5 Amenorrhea N91.2 Additional Codes Vital Signs *Quality* - CPT code: 43311 - 4-10 Minutes ([id number]) Assessment & Plan Assessment & Plan (1) Moderate persistent asthma: Code(s): J45.40 - Moderate persistent asthma, uncomplicated Category: Medical Qualifiers: Asthma complication type: with acute exacerbation Qualified Code(s): J45.41 - Moderate persistent asthma with (acute) exacerbation (2) Tobacco dependence: Code(s): F17.200 - Nicotine dependence, unspecified, uncomplicated Category: Medical (3) Acid reflux: Code(s): K21.9 - Gastro-esophageal reflux disease without esophagitis Category: Medical Qualifiers: Esophagitis presence: without esophagitis Qualified Code(s): K21.9 - Gastro-esophageal reflux disease without esophagitis (4) Environmental allergies: Code(s): Z91.09 - Other allergy status, other than to drugs and biological substances Category: Medical (5) Weight gain: Code(s): R63.5 - Abnormal weight gain Category: Medical (6) Amenorrhea: Code(s): N91.2 - Amenorrhea, unspecified Category: Medical Plan . Orders: Orders TSH reflex Free T4 Today N91.2 - Amenorrhea, unspecified, R63.5 - Abnormal weight gain HCG Quantitative Today N91.2 - Amenorrhea, unspecified, R63.5 - Abnormal weight gain Medications: New omeprazole 40 mg PO DAILY 90 caps 2RF Changed From cetirizine (Allergy Relief (cetirizine)) 20 mg (2 x 10 mg) PO DAILY 90 tabs 2RF To cetirizine (Allergy Relief (cetirizine)) 20 mg (2 x 10 mg) PO DAILY 90 days 180 tabs 2RF Refilled albuterol sulfate 0.63 mg (3 mL) inhalation Q4-6H PRN 75 mL 3RF shortness of breath or wheezing Discontinued cetirizine Discontinued Reason: Patient Completed Course 10 mg PO DAILY 30 days 30 tabs 1RF azithromycin Discontinued Reason: Patient Completed Course For 250 mg dose pack: take 500 mg today (day 1), then 250 mg for 4 days (days 2-5) PO 5 days 6 tabs 0RF prednisone Discontinued Reason: Patient Completed Course 20 mg PO DAILY 10 tabs 0RF
[2024-03-24 09:02] VITALS: BP 118/70; PULSE 95; RESP 12; O2SAT 97; BMI 32.2
== END 2024-03-24 09:26 | disposition home or self-care (01) ==
PROVIDERS: PCP Nurse Practitioner Family; Visit Provider Nurse Practitioner Family
DX: J45.41 Moderate persistent asthma with (acute) exacerbation (principal); F17.200 Nicotine dependence, unspecified, uncomplicated; K21.9 Gastro-esophageal reflux disease without esophagitis; Z91.09 Other allergy status, other than to drugs and biological substances; R63.5 Abnormal weight gain; N91.2 Amenorrhea, unspecified

== ENCOUNTER → 2024-03-24 08:55 | Outpatient (BNVA) | payer OTHER, SELFPAY | PROVIDERS: PCP Nurse Practitioner Family; Visit Provider Nurse Practitioner Family | DX: J45.41 Moderate persistent asthma with (acute) exacerbation (principal); K21.9 Gastro-esophageal reflux disease without esophagitis; R63.5 Abnormal weight gain; N91.2 Amenorrhea, unspecified; F17.200 Nicotine dependence, unspecified, uncomplicated; Z91.09 Other allergy status, other than to drugs and biological substances; Z71.6 Tobacco abuse counseling | CPT/HCPCS: 99212 ==

== ENCOUNTER 2024-03-24 09:33 | Outpatient (REF) | payer OTHER, SELFPAY ==
[2024-03-24 11:50] LABS: HCG Quantitative < 2 mIU/mL; TSH reflex Free T4 1.05 uIU/mL (0.32-4.0)
== END 2024-03-24 09:34 | disposition home or self-care (01) ==
LOC: HO.WFDLDS 09:33
PROVIDERS: Visit Provider Nurse Practitioner Family
DX: R63.5 Abnormal weight gain (principal); N91.2 Amenorrhea, unspecified
CPT/HCPCS: 36415; 84443; 84702

== ENCOUNTER 2024-04-01 08:58 | Outpatient (AMB) | payer OTHER, SELFPAY ==
[2024-04-01 09:14] VITALS: BP 112/68; PULSE 99; O2SAT 99
--- NOTE | 2024-04-01 09:14 | MHC.OFFVIS ---
Vital Signs 04/01/24 09:14 Height 5 ft 3 in BP 112/68 Blood Pressure Location Rt brachial Position Sitting Pulse 99 Pulse Source Pulse Oximeter Pulse Oximetry (%) 99 Oxygen Delivery Method Room Air Intake Visit Reasons: Dupixent Teaching Allergies Sulfa (Sulfonamide Antibiotics) [SULFA(SULFONAMIDE ANTIBIOTICS)] Allergy (Severe, Verified 04/01/24 09:15) SHORTNESS OF BREATH, SWELLING ALL OVER, anaphylaxis bee pollen [BEE STINGS] Allergy (Unknown, Verified 04/01/24 09:15) SWELLING mushroom [MUSHROOM] Allergy (Unknown, Verified 04/01/24 09:15) ANAPHYLAXIS shell fish Allergy (Severe, Uncoded 04/01/24 09:15) Anaphylaxis RAISIN Allergy (Intermediate, Uncoded 04/01/24 09:15) HIVES, THROAT SWELLING bees Allergy (Unknown, Uncoded 04/01/24 09:15) anaphylaxis mushrooms Allergy (Unknown, Uncoded 04/01/24 09:15) anaphylaxis raisins Allergy (Unknown, Uncoded 04/01/24 09:15) anaphylaxis Medication List - Last Reconciled 04/01/24 by Jenny Shields LPN albuterol sulfate 90 mcg/actuation (ProAir RespiClick) 2 inhalations inhalation Q4-6H PRN albuterol sulfate 0.63 mg (3 mL) inhalation Q4-6H PRN budesonide-formoterol 80-4.5 mcg/actuation (Symbicort) 1 puff inhalation BID cetirizine (Allergy Relief (cetirizine)) 20 mg (2 x 10 mg) PO DAILY 90 days dupilumab (Dupixent) 300 mg (2 mL) subcut Q2W ipratropium bromide 17 mcg/actuation (Atrovent HFA) 2 puffs inhalation TID nicotine 1 patch transdermal Q24H norethindrone (contraceptive) 0.35 mg PO DAILY omeprazole 40 mg PO DAILY vortioxetine (Trintellix) 10 mg PO DAILY HPI Comments Details: Kailey is here for a Dupixent teach with her boyfriend Alfredo. Alfredo was educated on hand washing, injection preparation, administration, and disposal.? Alfredo was able to return demonstrate proper technique for hand washing, injection preparation, administration and disposal of needle and states he has no questions at this time. Medication Dupixent 300mg/2mL pre-filled pen (patient?s own meds) Loading dose of 600mg given by the patient's boyfriend in 2 SQ injections; injection #1 R upper arm ;? injection #2 L upper arm? Lot# [id number] expires 11/23/2025. Patient aware her next injection is in 15 days. Nurse visit only.? PFSH Medical History (Updated 03/24/24 @ 09:29 by Coleen García, [facility]) Depression Anxiety Acid reflux delivery delivered Asthma Surgical History Tubal ligation status Family History (Updated 02/07/24 @ 08:48 by Yusra Guillen) Father Alcohol abuse Brother FH: mental illness Sister FH: mental illness Lymphoma Mother Asthma Social History (Updated 03/11/24 @ 09:59 by Indigo [place] [facility]) Housing: House Alcohol intake: current Alcohol intake frequency: holidays/special occasions only Patient Tobacco Use Status: Current everyday Tobacco user Tobacco use type: Cigarette Cigarettes Per Day: 10 Years Smoked: started around age 25, 0.5PPD, e-Cigarette/Vaping Use: Never Used Substance Use Type: Marijuana service: No Current occupational status: unemployed Current occupation: right hand dominant Current occupational exposures/hazards: No Cognitive needs: No Hearing needs: No Vision needs: Yes Physical Exam Vital Signs: Last Vital Signs Pulse 99 04/01/24 09:14 BP 112/68 04/01/24 09:14 Pulse Ox 99 04/01/24 09:14 Oxygen Delivery Method Room Air 04/01/24 09:14 Assessment & Plan Assessment & Plan (1) Moderate persistent asthma: Code(s): J45.40 - Moderate persistent asthma, uncomplicated Category: Medical Qualifiers: Asthma complication type: with acute exacerbation Qualified Code(s): J45.41 - Moderate persistent asthma with (acute) exacerbation Plan: Dupixent teaching. Coding Level of Care Code Established Pt Est Pt Level 1 (58356) Patient Type Established Diagnoses Moderate persistent asthma with acute exacerbation J45.41 Asthma complication type: with acute exacerbation Comment NURSE VISIT ONLY
== END 2024-04-01 10:43 | disposition home or self-care (01) ==
PROVIDERS: PCP Nurse Practitioner Family; Visit Provider Internal Medicine Pulmonary Disease
DX: J45.41 Moderate persistent asthma with (acute) exacerbation (principal)

== ENCOUNTER → 2024-04-01 08:58 | Outpatient (BNVA) | payer OTHER, SELFPAY | PROVIDERS: PCP Nurse Practitioner Family; Visit Provider Internal Medicine Pulmonary Disease | DX: J45.41 Moderate persistent asthma with (acute) exacerbation (principal); Z71.89 Other specified counseling | CPT/HCPCS: 99211 ==

== ENCOUNTER 2024-04-23 09:43 | Outpatient (REF) | payer OTHER, SELFPAY ==
--- NOTE | 2024-04-23 10:01 | PFT_ITS ---
Flows: FEV1: 94 % of predicted at 2.89 L FVC: 100 % of predicted at 3.74 L FEV1/FVC: 77 % Bronchodilator response: Absent Volumes: Total lung capacity: 109 % of predicted at 5.69 L Residual volume: 156 % of predicted at 1.96 L Slow vital capacity: 94 % of predicted at 3.73 L Expiratory reserve volume: 47 % of predicted at 0.59 L Diffusion capacity: Normal Impression: No obstructive or restrictive ventilatory defect. No bronchodilator response. Increased residual volume suggests air trapping. Decreased expiratory reserve volume suggests extrathoracic restriction likely secondary to abdominal obesity. MTDD
== END 2024-04-23 09:44 | disposition home or self-care (01) ==
LOC: HO.RESP 09:43
PROVIDERS: PCP Nurse Practitioner Family; Visit Provider Internal Medicine Pulmonary Disease
DX: J45.41 Moderate persistent asthma with (acute) exacerbation (principal)

== ENCOUNTER → 2024-04-23 10:01 | Outpatient (BNV) | payer OTHER, SELFPAY | PROVIDERS: PCP Nurse Practitioner Family; Visit Provider Internal Medicine Pulmonary Disease | DX: J45.41 Moderate persistent asthma with (acute) exacerbation (principal) | CPT/HCPCS: 94060; 94727; 94729 ==

== ENCOUNTER 2024-05-07 10:42 | Outpatient (AMB) | payer OTHER, SELFPAY ==
[2024-05-07 11:00] VITALS: BP 102/62; PULSE 91; O2SAT 98; BMI 33.5
--- NOTE | 2024-05-07 11:00 | A.OFFVIS_ITS ---
Vital Signs 05/07/24 11:00 Height 5 ft 3 in Weight 189 lb BMI 33.5 BP 102/62 Blood Pressure Location Rt brachial Position Sitting Pulse 91 Pulse Source Doppler Pulse Oximetry (%) 98 Oxygen Delivery Method Room Air Intake Visit Reasons: Asthma/PFT Follow Up Allergies Sulfa (Sulfonamide Antibiotics) [SULFA(SULFONAMIDE ANTIBIOTICS)] Allergy (Severe, Verified 04/01/24 09:15) SHORTNESS OF BREATH, SWELLING ALL OVER, anaphylaxis bee pollen [BEE STINGS] Allergy (Unknown, Verified 04/01/24 09:15) SWELLING mushroom [MUSHROOM] Allergy (Unknown, Verified 04/01/24 09:15) ANAPHYLAXIS shell fish Allergy (Severe, Uncoded 04/01/24 09:15) Anaphylaxis RAISIN Allergy (Intermediate, Uncoded 04/01/24 09:15) HIVES, THROAT SWELLING bees Allergy (Unknown, Uncoded 04/01/24 09:15) anaphylaxis mushrooms Allergy (Unknown, Uncoded 04/01/24 09:15) anaphylaxis raisins Allergy (Unknown, Uncoded 04/01/24 09:15) anaphylaxis HPI HPI Asthma/PFT Follow Up: Details: 38-year-old lady, active half a pack-a-day smoker with underlying asthma for approximately 15 years suboptimally controlled on Symbicort, Atrovent, albuterol MDI/nebs referred for pulmonary evaluation. She does complain of year round environmental allergies. Patient does have family history of asthma. After the last office visit she was started on Dupixent with significantly improved symptom control. She denies recent exacerbations. [facility] Medical History (Updated 03/24/24 @ 09:[address] [facility]) Depression Anxiety Acid reflux delivery delivered Asthma Surgical History Tubal ligation status Family History (Updated 02/07/24 @ 08:48 by Yusra Guillen) Father Alcohol abuse Brother FH: mental illness Sister FH: mental illness Lymphoma Mother Asthma Social History (Updated 03/11/24 @ 09:59 by [place]igo [place] [facility]) Housing: House Alcohol intake: current Alcohol intake frequency: holidays/special occasions only Patient Tobacco Use Status: Current everyday Tobacco user Tobacco use type: Cigarette Cigarettes Per Day: 10 Years Smoked: started around age 25, 0.5PPD, e-Cigarette/Vaping Use: Never Used Substance Use Type: Marijuana service: No Current occupational status: unemployed Current occupation: right hand dominant Current occupational exposures/hazards: No Cognitive needs: No Hearing needs: No Vision needs: Yes Review of Systems Const Denies daytime sleepiness, Denies excessive sweating, Denies fatigue, Denies fever(s), Denies lethargy, Denies malaise, Denies night sweats, Denies snoring and Denies weight loss Eyes Denies blurry vision and Denies itchy eyes ENT Denies nasal congestion, Denies post nasal drip, Denies sinus pain, Denies sinus pressure and Denies other ( Thrush) Card Denies chest pain, Denies pedal edema, Denies dyspnea, Denies orthopnea and Denies paroxysmal nocturnal dyspnea Resp Denies cough, Denies hemoptysis, Denies excessive phlegm production, Denies dyspnea, Denies snoring and Denies wheezing GI Denies abdominal pain and Denies heartburn Musc Denies myalgias, Denies arthralgias and Denies joint swelling Skin/Breast Denies rash Neuro Denies memory loss and Denies seizure-like activity Psych Denies abnormal sleep pattern, Denies anxiety and Denies memory loss Endo Denies excessive sweating, Denies fatigue and Denies heat intolerance José/Lymph Denies easy bruising Aller/Immun Denies itchy eyes, Denies seasonal rhinorrhea and Denies wheezing Physical Exam Vital Signs: Last Vital Signs Pulse 91 05/07/24 11:00 BP 102/62 05/07/24 11:00 Pulse Ox 98 05/07/24 11:00 Oxygen Delivery Method Room Air 05/07/24 11:00 BMI result Body Mass Index 33.5 Const General: no acute distress and alert Nutritional Appearance: not obese Orientation/consciousness: Other orientation findings ( oriented) HEENT Head: Yes atraumatic Eyes General: appearance normal, both eyes and all related structures Sclerae: sclerae normal EOM: EOMs intact bilaterally Neck Neck: Yes supple Lymphatic: no lymphadenopathy noted Resp Effort & Inspection: normal respiratory effort and no use of accessory muscles Auscultation: clear to auscultation bilaterally Cardio Rate: regular rate Rhythm: regular rhythm Heart sounds: no gallops, no murmurs and no rubs Skin General skin exam: other ( warm) Extrem General: No clubbing, No cyanosis and No edema Assessment & Plan Assessment & Plan (1) Moderate persistent asthma: Code(s): J45.40 - Moderate persistent asthma, uncomplicated Category: Medical Qualifiers: Asthma complication type: with acute exacerbation Qualified Code(s): J45.41 - Moderate persistent asthma with (acute) exacerbation Plan: Well controlled after starting on Dupixent. Continue current regimen of Dupixent, Symbicort, and albuterol MDI/nebs. (2) Environmental allergies: Code(s): Z91.09 - Other allergy status, other than to drugs and biological substances Category: Medical Plan: Results of immunologic workup reviewed, patient does have underlying significant allergies to cats and dogs,and eosinophilia. Symptoms are significantly improved on Dupixent. Continue current regimen. Coding Level of Care Code Est Pt Level 4 (80851) Diagnoses Moderate persistent asthma with acute exacerbation J45.41 Asthma complication type: with acute exacerbation Environmental allergies Z91.09
== END 2024-05-07 11:16 | disposition home or self-care (01) ==
PROVIDERS: PCP Nurse Practitioner Family; Visit Provider Internal Medicine Pulmonary Disease
DX: J45.41 Moderate persistent asthma with (acute) exacerbation (principal); Z91.09 Other allergy status, other than to drugs and biological substances
CPT/HCPCS: 99214

== ENCOUNTER → 2024-05-07 10:42 | Outpatient (BNVA) | payer OTHER, SELFPAY | PROVIDERS: PCP Nurse Practitioner Family; Visit Provider Internal Medicine Pulmonary Disease | DX: J45.41 Moderate persistent asthma with (acute) exacerbation (principal); Z91.09 Other allergy status, other than to drugs and biological substances | CPT/HCPCS: 99212 ==

== ENCOUNTER 2024-05-21 11:44 | Outpatient (REF) | payer OTHER, SELFPAY ==
--- NOTE | ~2024-05-21 | XR_ITS ---
EXAMINATION: XR WRIST, LEFT CLINICAL INFORMATION: M25.532 - Pain in left wrist COMPARISON: February 26, 2023. TECHNIQUE: PA, lateral, and oblique views of the left wrist. FINDINGS: No acute cortical disruption or gross malalignment. Old traumatic deformity with volar pattern distal fifth metacarpal. Distal radius and ulna are intact. XR/XR wrist LT w scaphoid IMPRESSION: No acute fracture or dislocation. Old traumatic deformity with volar angulation distal fifth metacarpal. Electronically signed by: Harsh Hurst MD 05/21/2024 02:00 PM ADELAIDE MARCUS
== END 2024-05-21 11:45 | disposition home or self-care (01) ==
LOC: HO.HMGCX 11:44
PROVIDERS: PCP Nurse Practitioner Family; Visit Provider Physician Assistant
DX: M25.532 Pain in left wrist (principal)
CPT/HCPCS: 73110; 99212

== ENCOUNTER 2024-05-21 11:44 | Outpatient (AMB) | payer OTHER, SELFPAY ==
--- NOTE | 2024-05-21 12:49 | AM.OFFWIN_ITS ---
Intake Vital Signs 05/21/24 12:50 Height 5 ft 3 in Weight 192 lb BMI 34.0 BP 110/80 Blood Pressure Location Rt brachial Position Sitting Respiration 16 Pulse 85 Pulse Source Pulse Oximeter Temp 98.2 F Temp Source Oral Pulse Oximetry (%) 98 Oxygen Delivery Method Room Air Intake Visit Reasons: EP pain on LT wrist, swollen, can't move it Intake Note: Pt is here today c/o Lt wrist pain, swollen:No injury notes Patient Tobacco Use Status: Current everyday Tobacco user Allergies Sulfa (Sulfonamide Antibiotics) [SULFA(SULFONAMIDE ANTIBIOTICS)] Allergy (Severe, Verified 05/21/24 13:08) SHORTNESS OF BREATH, SWELLING ALL OVER, anaphylaxis bee pollen [BEE STINGS] Allergy (Unknown, Verified 05/21/24 13:08) SWELLING mushroom [MUSHROOM] Allergy (Unknown, Verified 05/21/24 13:08) ANAPHYLAXIS cat dander Adverse Reaction (Verified 05/21/24 13:08) Rash dog dander Adverse Reaction (Verified 05/21/24 13:08) Rash shell fish Allergy (Severe, Uncoded 05/21/24 13:08) Anaphylaxis RAISIN Allergy (Intermediate, Uncoded 05/21/24 13:08) HIVES, THROAT SWELLING bees Allergy (Unknown, Uncoded 05/21/24 13:08) anaphylaxis mushrooms Allergy (Unknown, Uncoded 05/21/24 13:08) anaphylaxis raisins Allergy (Unknown, Uncoded 05/21/24 13:08) anaphylaxis HPI HPI Comments History of Present Illness Details Patient is a 38-year-old female complaining of left wrist pain x1 day. She tells me she woke up this morning with the pain, she tried taking it a little bit but that did not help. She did not take any medications to make the pain better. She did not to use ice. She denies any injury to the left wrist. She denies any history of any injuries to the left wrist but does mention a broken hand bone awhile ago that she does not feel ever healed properly. She denies repetitive use from work as she is not working at this time. [facility] Medical History (Updated 05/21/24 @ 13:35 by Vy Morgan PA-C) Depression Anxiety Acid reflux delivery delivered Asthma Surgical History Tubal ligation status Family History (Updated 02/07/24 @ 08:48 by Yusra Guillen) Father Alcohol abuse Brother FH: mental illness Sister FH: mental illness Lymphoma Mother Asthma Social History (Updated 03/11/24 @ 09:59 by [place] [facility]) Housing: House Alcohol intake: current Alcohol intake frequency: holidays/special occasions only Patient Tobacco Use Status: Current everyday Tobacco user Tobacco use type: Cigarette Cigarettes Per Day: 10 Years Smoked: started around age 25, 0.5PPD, e-Cigarette/Vaping Use: Never Used Substance Use Type: Marijuana service: No Current occupational status: unemployed Current occupation: right hand dominant Current occupational exposures/hazards: No Cognitive needs: No Hearing needs: No Vision needs: Yes Review of Systems Const All systems reviewed & are unremarkable except as noted in HPI and below Physical Exam Vital Signs: Last Vital Signs Temp 98.2 F 05/21/24 12:50 Pulse 85 05/21/24 12:50 Resp 16 05/21/24 12:50 BP 110/80 05/21/24 12:50 Pulse Ox 98 05/21/24 12:50 Oxygen Delivery Method Room Air 05/21/24 12:50 BMI result Body Mass Index 34.0 Const General: cooperative, healthy appearing, comfortable and no acute distress Orientation/consciousness: patient oriented x3 Limitations: no limitations HEENT Head: Yes normal to inspection Resp Effort & Inspection: normal respiratory effort and able to speak in complete sentences Neuro General: patient oriented x3 Extrem Left upper extremity: elbow/forearm Details: normal to inspection and normal ROM; no tenderness, no swelling, no unusual warmth, no abrasions, no lacerations, no ecchymosis and no deformity, wrist ( unable to perform ROM or Phalens 2/2 pain, NVI, negative Tinels ) and hand (beck tender 4/5) Details: normal to inspection, normal capillary refill, neuromotor exam normal, neurosensory exam normal, tendon exam normal and normal ROM of fingers; no tenderness, no unusual warmth, no swelling, no abrasions, no lacerations, no ecchymosis and no foreign bodies Assessment & Plan Assessment & Plan (1) Left wrist pain: Code(s): M25.532 - Pain in left wrist Plan: patient unable to perform most of the physical exam, denies injury so I will get an x-ray. my interpretation of the x-rays no fracture or dislocation. There does appear to be a small cyst which could be causing her pain. We did give her a thumb spica wrist brace so she can rest her wrist use a leave use ice and follow up with her PCP if no improvement in her symptoms. Orders: Orders XR wrist LT w scaphoid Today M25.532 - Pain in left wrist Coding Level of Care Code Est Pt Level 4 (07583) Diagnoses Left wrist pain M25.532
[2024-05-21 12:50] VITALS: BP 110/80; PULSE 85; RESP 16; TEMP 36.8; O2SAT 98; BMI 34.0
== END 2024-05-21 14:01 | disposition home or self-care (01) ==
PROVIDERS: PCP Nurse Practitioner Family; Visit Provider Physician Assistant
DX: M25.532 Pain in left wrist (principal)

== ENCOUNTER → 2024-05-21 13:39 | Outpatient (BNV) | payer OTHER, SELFPAY | PROVIDERS: PCP Nurse Practitioner Family; Visit Provider Radiology Diagnostic Radiology | DX: S62.307D Unspecified fracture of fifth metacarpal bone, left hand, subsequent encounter for fracture with routine healing (principal) | CPT/HCPCS: 73110 ==

== ENCOUNTER 2024-06-26 09:23 | Outpatient (AMB) | payer OTHER, SELFPAY ==
--- NOTE | 2024-06-26 09:27 | MHC.PC.OV ---
Vital Signs 06/26/24 09:31 Height 5 ft 3 in Weight 192 lb BMI 34.0 BP 122/72 Blood Pressure Location Lt brachial Position Sitting Respiration 12 Pulse 78 Pulse Source Pulse Oximeter Temp 97.3 F Temp Source Oral Pulse Oximetry (%) 98 Oxygen Delivery Method Room Air Intake Visit Reasons: cpe Intake Note: CPE Computer Training Specialist Required: No Allergies Sulfa (Sulfonamide Antibiotics) [SULFA(SULFONAMIDE ANTIBIOTICS)] Allergy (Severe, Verified 06/26/24 09:35) SHORTNESS OF BREATH, SWELLING ALL OVER, anaphylaxis bee pollen [BEE STINGS] Allergy (Unknown, Verified 06/26/24 09:35) SWELLING mushroom [MUSHROOM] Allergy (Unknown, Verified 06/26/24 09:35) ANAPHYLAXIS cat dander Adverse Reaction (Verified 06/26/24 09:35) Rash dog dander Adverse Reaction (Verified 06/26/24 09:35) Rash shell fish Allergy (Severe, Uncoded 06/26/24 09:35) Anaphylaxis RAISIN Allergy (Intermediate, Uncoded 06/26/24 09:35) HIVES, THROAT SWELLING bees Allergy (Unknown, Uncoded 06/26/24 09:35) anaphylaxis mushrooms Allergy (Unknown, Uncoded 06/26/24 09:35) anaphylaxis raisins Allergy (Unknown, Uncoded 06/26/24 09:35) anaphylaxis Medication List - Last Reconciled 06/26/24 by Coleen García RECYCLING ASSISTANT- albuterol sulfate 90 mcg/actuation (ProAir RespiClick) 2 inhalations inhalation Q4-6H PRN albuterol sulfate 0.63 mg (3 mL) inhalation Q4-6H PRN budesonide-formoterol 80-4.5 mcg/actuation (Symbicort) 1 puff inhalation BID cetirizine (Allergy Relief (cetirizine)) 20 mg (2 x 10 mg) PO DAILY 90 days dupilumab (Dupixent) 300 mg (2 mL) subcut Q2W ipratropium bromide 17 mcg/actuation (Atrovent HFA) 2 puffs inhalation TID nicotine 1 patch transdermal Q24H omeprazole 40 mg PO DAILY propranolol mg PO BID vortioxetine (Trintellix) 10 mg PO DAILY Tobacco use date assessed: 06/26/24 Dental Screening Dental Screen Date: 06/26/24 Did you have a dental visit in the last 12 months?: No Did you have a dental problem in the last 6 months where you did not have access to dental care?: No Was dental information given to patient?: Patient has dentist HPI HPI Comments History of Present Illness Details 38 y/o F with moderate persistent asthma, seasonal allergies, ASHUTOSH, MDD, s/p fracture of 5th metacarpal bone L hand, current every day smoker, daily marijuana use, pulmonary nodules, obesity s/p tubal ligation, c section Health Maintenance Tdap 2018 PPSV 2017 Pap overdue Flu declined Specialists Ortho Pul[facility] Psych [facility] - referred today to [facility] for pap, overdue Optho wears glasses, exam 06/19/24 [facility] Here today for CPE & chronic dz mgmt Asthma: Currently being managed by pulmonology. She was able to start on Dupixent and this has been helpful. She needs a refill on her Symbicort. She continues to smoke but is doing her best to reduce, has nicotine patches on hand Seasonal allergies: Using Zyrtec 20 mg with positive relief Her GERD is well controlled with the use of omeprazole 40 mg Mental health is stable. She was using propranolol and Trintellix. She was managed by an outside specialist She is overdue for a Pap smear. She reports heavy irregular periods status post tubal ligation after the of her last child. Exam: General: Well developed, well nourished, in no acute distress. Head: Normocephalic, atraumatic. Eyes: Pupils are equal, round and reactive to light and accommodation. Conjunctivae are clear. Vision grossly normal. Ears: TMs mild congestion bilat, EACS WNL Nose: Clear drainage bilat. Mouth: There are no ulcers or lesions noted. No inflammation, no post nasal drip, no plaques nor exudates. Edentulous Neck: Supple, no adenopathy or thyromegaly. Lungs: Clear to auscultation bilaterally. No rales, rhonchi or wheeze noted. Good air flow in all flores. Heart: Regular rate and rhythm. No murmurs, click, rubs or gallops are noted. Abdomen: Bowel sounds present in all quadrants. The abdomen is soft, with no masses or organomegaly noted. No hernias are noted. Mild tenderness w/o rebound to LLQ Musculoskeletal: Joints are nontender, without swelling, redness, or effusions. Range of motion is observed to be normal. Pulses: Peripheral pulses are equal and palpable bilaterally. Extremities: No clubbing, cyanosis nor edema is noted. Neurologic: Gait and station normal. Cranial Nerves 2-12 intact. Motor strength grossly symmetrical and intact. No sensory loss. Balance normal. Skin: No rashes, ulcers, or lesions noted. Turgor is good. Skin color is good. Hair and nails are without abnormalities. Has a painful corn bottom of R foot failed OTC treatments; starting with wart on bottom of L foot. Psych: Normal eye contact, affect and mood appropriate, and normal interactions. Patient is alert and appropriate to context. Plan: Refer to [facility] and Podiatry Cont care w/ care team Cont all meds; refill on symbicort sent per request Smoking cessation RTO 1 year, CPE, sooner PRN An additional 30 minutes was spent addressing the problem(s) noted at todays visit. This includes time spent before the visit reviewing the chart, time spent during the visit, and time spent after the visit on documentation reviewing laboratory results, diagnostic imaging, medications, performing a medically necessary evaluation, counseling on diagnoses, care coordination, ordering appropriate tests, ordering appropriate medications, review of tests performed by other providers, reporting test results with the patient, communication with other healthcare providers. [facility] Medical History (Updated 06/26/24 @ 09:52 by Coleen García, [facility]) Acid reflux Anxiety Asthma delivery delivered Depression Fracture of fifth metacarpal bone of left hand Left wrist pain Surgical History Tubal ligation status Family History Father Alcohol abuse Brother FH: mental illness Sister FH: mental illness Lymphoma Mother Asthma Social History Housing: House Alcohol intake: current Alcohol intake frequency: holidays/special occasions only Patient Tobacco Use Status: Current everyday Tobacco user Tobacco use type: Cigarette Cigarettes Per Day: 10 Years Smoked: started around age 25, 0.5PPD, e-Cigarette/Vaping Use: Never Used Substance Use Type: Marijuana service: No Current occupational status: unemployed Current occupation: right hand dominant Current occupational exposures/hazards: No Cognitive needs: No Hearing needs: No Vision needs: Yes Questionnaire PHQ-9 Over the last 2 weeks, how often have you been bothered by any of the following problems? 1. Little interest or pleasure in doing things: not at all 2. Feeling down, depressed, or hopeless: not at all 3. Trouble falling or staying asleep, or sleeping too much: not at all 4. Feeling tired or having little energy: not at all 5. Poor appetite or overeating: several days 6. Feeling bad about yourself - or that you are a failure or have let yourself or your family down: not at all 7. Trouble concentrating on things, such as reading the newspaper or watching television: not at all 8. Moving or speaking so slowly that other people could have noticed. Or the opposite - being so fidgety or restless that you have been moving around a lot more than usual: not at all 9. Thoughts that you would be better off or of hurting yourself in some way: not at all Total score: 1 Depression Screening Interpretation: Negative Depression Screening Done: Yes 70963 - PHQ-9 Billing: Yes Source: Developed by Drs. Andi Rodríguez, Ria Mueller, Dax Ayala and colleagues, with an educational óscar from [employer]. Thrive Questionnaire Date Thrive assessed: 06/26/24 I am a: Patient What is your living situation today?: I have a steady place to live Within the past 12 months, did the food you bought not last and you didn't have the money to get more?: Never true Within the past 12 months, did you worry whether your food would run out before you got money to buy more?: Never true Do you have trouble paying for medicines?: No Do you have trouble getting transportation to medical appointments?: No Do you have trouble paying your heating and electricity bill?: No Do you have trouble taking care of your child, family member or friend?: No Do you have trouble with day-to-day activities such as bathing, preparing meals, shopping, managing finances, etc.?: No Are you currently unemployed and looking for a job?: Yes Are you interested in more education?: No Please select the resources that you would like help with: None Currently or been in a relationship where the following occur: No concerns reported THRIVE Score: 0 AUDIT C Alcohol Use Questionnaire (AUDIT-C) 1. How often do you have a drink containing alcohol?: Never 2. How many drinks containing alcohol do you have on a typical day when you are drinking?: 1 or 2 3. How often do you have six or more drinks on one occasion?: Never Total Score: 0 Score Reviewed/Action Taken: Yes ASHUTOSH-7 AMB Questionnaire ASHUTOSH-7 Date ASHUTOSH - 7 assessed: 06/26/24 Feeling nervous, anxious, or on edge: 1 = Several days Not being able to stop or control worryin = Not at all Worrying too much about different things: 0 = Not at all Trouble relaxin = Not at all Being so restless that it is hard to sit still: 0 = Not at all Becoming easily annoyed or irritable: 1 = Several days Feeling afraid as if something awful might happen: 0 = Not at all Total ASHUTOSH-7 score (0-4 normal; 5-9 mild; 10-14 moderate; 15-21 severe): 2 Source: Developed by Drs. Andi Rodríguez, Ria Mueller, Dax Ayala and colleagues, with an educational óscar from [employer]. ASHUTOSH-7 Assessment Billing ASHUTOSH-7 Assessment Tool: ASHUTOSH-7 Assessment 28709 ACT Questionnaire In the past 4 weeks, how much of the time did your asthma keep you from getting as much done at work, school or at home?: Some of the time During the past 4 weeks, how often have you had shortness of breath?: 3-6 times a week During the past 4 weeks, how often did your asthma symptoms wake you up at night or earlier than usual in the morning?: 2-3 nights a week During the past 4 weeks, how often have you had to use your rescue inhaler or nebulizer medication?: 1-2 times a week How would you rate your asthma control during the past 4 weeks?: Somewhat controlled ACT Interpretation: Positive ACT Branch: Follow up visit scheduled Score: 13 Physical exam (Primary Care) Vital Signs: Last Vital Signs Temp 97.3 F 06/26/24 09:31 Pulse 78 06/26/24 09:31 Resp 12 06/26/24 09:31 BP 122/72 06/26/24 09:31 Pulse Ox 98 06/26/24 09:31 Oxygen Delivery Method Room Air 06/26/24 09:31 BMI result Body Mass Index 34.0 BMI Assessment/Plan discussion: High BMI High, discussed plan: lifestyle Tobacco/Smoking Status: Tobacco use Status Tobacco use date assessed 06/26/24 06/26/24 09:33 Patient Tobacco Use Status Current everyday Tobacco 06/26/24 09:33 Tobacco use type Cigarette 06/26/24 09:33 e-Cigarette/Vaping Use Never Used 06/26/24 09:33 Are you ready to quit: No Tobacco cessation counseling provided: Yes Items discussed: Nicotine replacement, QuitWorks and Other Relapse Prevention: discussed the importance of a supportive environment, discussed extending NRT, discussed negative mood or depression after quitting, weight gain after smoking is common and discussed dietary, exercise and/or lifestyle changes Number of minutes spent counselin CPT code: 16218 - 4-10 Minutes PHQ-9: PHQ-9 Score PHQ-9: Total score 1 06/26/24 09:41 Depression Screening Interpretation: Negative Thrive Assessment: Date of Thrive Assessment Date Thrive assessed 06/26/24 06/26/24 09:33 Currently or been in a relationship where the following occur: No concerns reported Coding Level of Care Code Est Pt Level 4 (51236) Est Pt Prev Care 18-39y(34083) Diagnoses Encounter for general adult medical examination with abnormal findings Z00.01 Obesity (BMI 30-39.9) E66.9 Tobacco dependence F17.200 Moderate persistent asthma with acute exacerbation J45.41 Asthma complication type: with acute exacerbation Moderate episode of recurrent major depressive disorder F33.1 Major depression episode severity: moderate ASHUTOSH (generalized anxiety disorder) F41.1 Environmental allergies Z91.09 Gastroesophageal reflux disease without esophagitis K21.9 Esophagitis presence: without esophagitis Dysmenorrhea N94.6 [place] of foot L84 Plantar wart of left foot B07.0 Additional Codes Asthma Control Questionnaire - ACT Interpretation: Positive ([id number]) ASHUTOSH-7 Assessment Billing - ASHUTOSH-7 Assessment Tool: ASHUTOSH-7 Assessment 17564 ([id number]) PHQ-9 - 18096 - PHQ-9 Billing: Yes ([id number]) Vital Signs *Quality* - CPT code: 11881 - 4-10 Minutes ([id number]) Assessment & Plan Assessment & Plan (1) Encounter for general adult medical examination with abnormal findings: Code(s): Z00.01 - Encounter for general adult medical examination with abnormal findings (2) Obesity (BMI 30-39.9): Code(s): E66.9 - Obesity, unspecified Category: Medical (3) Tobacco dependence: Code(s): F17.200 - Nicotine dependence, unspecified, uncomplicated Category: Medical (4) Moderate persistent asthma: Code(s): J45.40 - Moderate persistent asthma, uncomplicated Category: Medical Qualifiers: Asthma complication type: with acute exacerbation Qualified Code(s): J45.41 - Moderate persistent asthma with (acute) exacerbation (5) MDD (major depressive disorder), recurrent episode: Code(s): F33.9 - Major depressive disorder, recurrent, unspecified Category: Medical Qualifiers: Major depression episode severity: moderate Qualified Code(s): F33.1 - Major depressive disorder, recurrent, moderate (6) ASHUTOSH (generalized anxiety disorder): Code(s): F41.1 - Generalized anxiety disorder Category: Medical (7) Environmental allergies: Code(s): Z91.09 - Other allergy status, other than to drugs and biological substances Category: Medical (8) Acid reflux: Code(s): K21.9 - Gastro-esophageal reflux disease without esophagitis Category: Medical Qualifiers: Esophagitis presence: without esophagitis Qualified Code(s): K21.9 - Gastro-esophageal reflux disease without esophagitis (9) Dysmenorrhea: Code(s): N94.6 - Dysmenorrhea, unspecified Category: Medical (10) [place] of foot: Code(s): L84 - Corns and callosities Category: Medical (11) Plantar wart of left foot: Code(s): B07.0 - Plantar wart Category: Medical Plan . Orders: Referrals INSERTING OPERATOR Referral N94.6 - Dysmenorrhea, unspecified, Z12.4 - Encounter for screening for malignant neoplasm of cervix Podiatry Referral B07.0 - Plantar wart, L84 - Corns and callosities Medications: Refilled budesonide-formoterol 80-4.5 mcg/actuation (Symbicort) 1 puff inhalation BID 10.2 grams 3RF Patient Instructions: Health screenings for women You should visit your health care provider from time to time, even if you are healthy. The purpose of these visits is to: Screen for medical issues Assess your risk for future medical problems Encourage a healthy lifestyle Update vaccinations and other preventive care services Help you get to know your provider in case of an illness Information Even if you feel fine, you should still see your provider for regular checkups. These visits can help you avoid problems in the future. For example, the only way to find out if you have high blood pressure is to have it checked regularly. High blood sugar and high cholesterol levels also may not have any symptoms in the early stages. A simple blood test can check for these conditions. There are specific times when you should see your provider or receive specific health screenings. The [place] Preventive Services Task Force publishes a list of recommended screenings. Below are screening guidelines for women ages 18 to 39. BLOOD PRESSURE SCREENING Your blood pressure should be checked at least once every 3 to 5 years if: Your blood pressure is in the normal range (top number less than 120 mm Hg and bottom number less than 80 mm Hg) You don't have risk factors for high blood pressure Ask your provider if you need your blood pressure checked more often if: The top number is 120 to 129 mm Hg or the bottom number is 70 to 79 mm Hg You have diabetes, heart disease, kidney problems, are overweight, or have certain other health conditions You have a first-degree relative with high blood pressure You are Black You had high blood pressure during a If the top number is 130 mm Hg or greater or the bottom number is 80 mm Hg or greater, this is considered stage 1 hypertension. Schedule an appointment with your provider to learn how you can reduce your blood pressure. Watch for blood pressure screenings in your area. Ask your provider if you can stop in to have your blood pressure checked. BREAST CANCER SCREENING Experts do not agree about the benefits of breast self-exams in finding breast cancer or saving lives. Talk to your provider about what is best for you. A screening mammogram is not recommended for most women under age 40. Your provider may discuss and recommend mammograms, MRI scans, or ultrasounds if you have an increased risk for breast cancer, such as: A mother or sister who had breast cancer at a young age (most often starting screening earlier than the age the close relative was diagnosed) You carry a high-risk genetic marker CERVICAL CANCER SCREENING Cervical cancer screening should start at age 21 years unless your provider advises otherwise. After the first test: Women ages 21 through 29 should have a Pap test every 3 years. Exoprts do not agree on whether HPV testing is recommended for this age group. Women ages 30 through 65 should be screened with either a Pap test every 3 years or the HPV test every 5 years or both tests every 5 years (called cotesting ). Women who have been treated for precancer (cervical dysplasia) should continue to have Pap tests for 20 years after treatment or until age 65, whichever is longer. If you have had your uterus and cervix removed (total hysterectomy), and you have not been diagnosed with cervical cancer or precancer (high grade cervical neoplasia), you do not need cervical cancer screening. CHOLESTEROL SCREENING Cholesterol screening should begin at: Age 45 for women with no known risk factors for coronary heart disease Age 20 for women with known risk factors for coronary heart disease Repeat cholesterol screening should take place: Every 5 years for women with normal cholesterol levels More often if changes occur in lifestyle (including weight gain and diet) More often if you have diabetes, heart disease, kidney problems, or certain other conditions DIABETES SCREENING You should be screened for diabetes starting at age 35 and then repeated every 3 years if you have no risk factors for diabetes. Screening may need to start earlier and be repeated more often if you have other risk factors for diabetes, such as: You have a first degree relative with diabetes. You are overweight or have obesity. You have high blood pressure, prediabetes, or a history of heart disease. Screening for diabetes should be done if you are planning to become and you are overweight and have other risk factors such as high blood pressure. DENTAL EXAM Go to the dentist once or twice every year for an exam and cleaning. Your dentist will evaluate if you need more frequent visits. EYE EXAM Have an eye exam every 5 to 10 years before age 40. If you have vision problems, have an eye exam every 2 years or more often if recommended by your provider. You should have an eye exam that includes an examination of your retina (back of your eye) at least every year if you have diabetes. IMMUNIZATIONS Commonly needed vaccines include: Flu shot: get one every year. COVID-19 vaccine: ask your provider what is best for you. Tetanus-diphtheria and acellular pertussis (Tdap) vaccine: have one at or after age 19 as one of your tetanus-diphtheria vaccines if you did not receive it as an adolescent. Tetanus-diphtheria: have a booster (or Tdap) every 10 years. Varicella vaccine: receive 2 doses if you never had chickenpox or the varicella vaccine. Hepatitis B vaccine: receive 2, 3, or 4 doses, depending on your exact circumstances. Measles, mumps, and rubella (MMR) vaccine: receive 1 to 2 doses if you are not already immune to MMR. Your provider can tell you if you are immune. Ask your provider about the human papillomavirus (HPV) vaccine if: You have not received the HPV vaccine in the past You have not completed the full vaccine series (you should catch up on this shot) Ask your provider if you should receive other immunizations if you have certain health problems that increase your risk for some diseases such as pneumonia. INFECTIOUS DISEASE SCREENING Women who are sexually active should be screened for chlamydia and gonorrhea up until age 25. Women 25 years and older should be screened for chlamydia and gonorrhea if at high risk. Screening for hepatitis C: All adults ages 18 to 79 should get a one-time test for hepatitis C. people should be screened at every . Screening for human immunodeficiency virus (HIV): All people ages 15 to 65 should get a one-time test for HIV. Depending on your lifestyle and medical history, you may also need to be screened for infections such as syphilis and HIV, as well as other infections. PHYSICAL EXAM All adults should visit their provider from time to time, even if they are healthy. The purpose of these visits is to: Screen for disease Assess your risk of future medical problems Encourage a healthy lifestyle Update your vaccinations and other preventive care services Maintain a relationship with a provider in case of an illness Your height, weight, and BMI should be checked at every exam. During your exam, your provider may ask you about: Depression and anxiety Diet and exercise Alcohol and tobacco use Safety issues, such as using seat belts, smoke detectors, and intimate partner violence Your medicines and risk for interactions SKIN SELF-EXAM Your provider may check your skin for signs of skin cancer, especially if you're at high risk, such as if you: Have had skin cancer before Have close relatives with skin cancer Have a weakened immune system OTHER SCREENING Talk with your provider about colon cancer screening if you have a strong family history of colon cancer or polyps, or if you have had inflammatory bowel disease or polyps yourself. Routine bone density screening of women under 40 is not recommended.
[2024-06-26 09:31] VITALS: BP 122/72; PULSE 78; RESP 12; TEMP 36.3; O2SAT 98; BMI 34.0
== END 2024-06-26 09:58 | disposition home or self-care (01) ==
LOC: HO.HMCFM 09:24
PROVIDERS: PCP Nurse Practitioner Family; Visit Provider Nurse Practitioner Family
DX: Z00.01 Encounter for general adult medical examination with abnormal findings (principal); J45.41 Moderate persistent asthma with (acute) exacerbation; F33.1 Major depressive disorder, recurrent, moderate; E66.9 Obesity, unspecified; Z68.34 Body mass index [BMI] 34.0-34.9, adult; F17.200 Nicotine dependence, unspecified, uncomplicated; F41.1 Generalized anxiety disorder; Z91.09 Other allergy status, other than to drugs and biological substances; K21.9 Gastro-esophageal reflux disease without esophagitis; N94.6 Dysmenorrhea, unspecified; L84 Corns and callosities; B07.0 Plantar wart

== ENCOUNTER → 2024-06-26 09:23 | Outpatient (BNVA) | payer OTHER, SELFPAY | PROVIDERS: PCP Nurse Practitioner Family; Visit Provider Nurse Practitioner Family | DX: Z00.01 Encounter for general adult medical examination with abnormal findings (principal); J45.909 Unspecified asthma, uncomplicated; E66.9 Obesity, unspecified; F17.210 Nicotine dependence, cigarettes, uncomplicated; R91.8 Other nonspecific abnormal finding of lung field; J45.41 Moderate persistent asthma with (acute) exacerbation; F33.1 Major depressive disorder, recurrent, moderate; F41.1 Generalized anxiety disorder; K21.9 Gastro-esophageal reflux disease without esophagitis; N94.6 Dysmenorrhea, unspecified; L84 Corns and callosities; B07.0 Plantar wart; Z91.09 Other allergy status, other than to drugs and biological substances; Z68.34 Body mass index [BMI] 34.0-34.9, adult | CPT/HCPCS: 96127; 96160; 99212; 99395 ==

== ENCOUNTER 2024-10-22 08:30 | Outpatient (REF) | payer OTHER, SELFPAY ==
[2024-10-22 13:03] LABS: CT PCR Urine NOT DETECTED (Not Detect.); NG PCR Urine NOT DETECTED (Not Detect.)
== END 2024-10-22 08:31 | disposition home or self-care (01) ==
LOC: HO.LAB 08:30
PROVIDERS: PCP Nurse Practitioner Family; Visit Provider Nurse Practitioner Family
DX: R10.31 Right lower quadrant pain (principal); L84 Corns and callosities; B07.0 Plantar wart; F17.210 Nicotine dependence, cigarettes, uncomplicated; R39.9 Unspecified symptoms and signs involving the genitourinary system; Z20.2 Contact with and (suspected) exposure to infections with a predominantly sexual mode of transmission; Z32.02 Encounter for pregnancy test, result negative
CPT/HCPCS: 36415; 76705; 76857; 81025; 87086; 87491; 87591; 96127; 99212

== ENCOUNTER 2024-10-22 08:30 | Outpatient (AMB) | payer OTHER, SELFPAY ==
--- NOTE | 2024-10-22 08:33 | A.OFFPC_ITS ---
Vital Signs 10/22/24 08:39 Height 5 ft 3 in Weight 187 lb BMI 33.1 BP 122/70 Blood Pressure Location Rt brachial Position Sitting Respiration 12 Pulse 84 Pulse Source Pulse Oximeter Temp 96.9 F Temp Source Oral Pulse Oximetry (%) 99 Oxygen Delivery Method Room Air Intake Visit Reasons: Pain on her Legs Near Groin Area Intake Note: Patient c/o pain on right side of groin. Patient went to walk in clinic in [place] about two weeks ago for this and got prescribed muscle relaxer but its still not feeling better Validation Intern Required: No Allergies Sulfa (Sulfonamide Antibiotics) (SULFA(SULFONAMIDE ANTIBIOTICS)) Allergy (Severe, Verified 10/22/24 08:44) SHORTNESS OF BREATH, SWELLING ALL OVER, anaphylaxis bee pollen (BEE STINGS) Allergy (Unknown, Verified 10/22/24 08:44) SWELLING mushroom (MUSHROOM) Allergy (Unknown, Verified 10/22/24 08:44) ANAPHYLAXIS cat dander Adverse Reaction (Verified 10/22/24 08:44) Rash dog dander Adverse Reaction (Verified 10/22/24 08:44) Rash shell fish Allergy (Severe, Uncoded 10/22/24 08:34) Anaphylaxis RAISIN Allergy (Intermediate, Uncoded 10/22/24 08:34) HIVES, THROAT SWELLING bees Allergy (Unknown, Uncoded 10/22/24 08:34) anaphylaxis mushrooms Allergy (Unknown, Uncoded 10/22/24 08:34) anaphylaxis raisins Allergy (Unknown, Uncoded 10/22/24 08:34) anaphylaxis Medication List - Last Reconciled 10/22/24 by Coleen García, [facility] albuterol sulfate 90 mcg/actuation (ProAir RespiClick) 2 inhalations inhalation Q4-6H PRN albuterol sulfate 0.63 mg (3 mL) inhalation Q4-6H PRN aripiprazole (Abilify) 2 mg PO DAILY budesonide-formoterol 80-4.5 mcg/actuation (Symbicort) 1 puff inhalation BID cetirizine (Allergy Relief (cetirizine)) 20 mg (2 x 10 mg) PO DAILY 90 days dupilumab (Dupixent) 300 mg (2 mL) subcut Q2W ipratropium bromide 17 mcg/actuation (Atrovent HFA) 2 puffs inhalation TID nicotine 1 patch transdermal Q24H omeprazole 40 mg PO DAILY propranolol mg PO BID vortioxetine (Trintellix) 10 mg PO DAILY Tobacco use date assessed: 10/22/24 Dental Screening Dental Screen Date: 10/22/24 Did you have a dental visit in the last 12 months?: Yes Did you have a dental problem in the last 6 months where you did not have access to dental care?: No Was dental information given to patient?: Patient has dentist HPI HPI Comments History of Present Illness Details [phone] 38 y/o F with moderate persistent asthma , seasonal allergies, ASHUTOSH, MDD, s/p fracture of 5th metacarpal bone L hand, current every day smoker, daily marijuana use, pulmonary nodules, obesity s/p tubal ligation, c section History of Present Illness - The patient is a 38-year-old female pr esenting with R groin pain. - Developed around September 26, with increasi ng severity. - Pain worsens when wearing Crocs; impro ruperto with sneakers. - No trauma or injury reported. - Evaluated at a walk-in clinic; prescri bed ibuprofen and muscle relaxer. - No improvement noted. Has a new sex partner; denies fever, chills, vaginal d/c, abd pain. - Period irregularity led to c oncerns despite tubal. - Reports history of plantar warts and d id not hear from podiatry; needs new referral Review of Systems - Genitourinary: Reports groin pain; den ies vaginal discharge and urinary discomfort. - Musculoskeletal: Reports foot pain due to plantar warts. - Reproductive: Concern for possible pre gnancy; menstrual irregularities. - Family History: Sister with lymphoma. Exam: General: Well developed, well nourished, in no acute distress. Nontoxic Scleras nonitcteric bilat MMM Abdomen: Bowel sounds present in all quadrants. The abdomen is soft, with no masses or organomegaly noted. No hernias are noted. : Tender over R inguinal area, there is no appreciated adenopathy. There is no rebound or rigidity. Musculoskeletal: R leg no edema, erythema. FROM. Normal strength. Normal pulses to include femoral pulse. Negative SLR bilat. No back pain. Normal gait Neurologic: Gait and station normal. Cranial Nerves 2-12 intact. Motor strength grossly symmetrical and intact. No sensory loss. Balance normal. Skin: Has a painful corn bottom of R foot failed OTC treatments; starting with wart on bottom of L foot. Psych: Normal eye contact, affect and mood appropriate, and normal i nteractions. Patient is alert and appropriate to context. Results - Labs: Urinalysis shows trace blood, pr egnancy test negative. - Tests: Urine sample sent for culture & gonorrhea and chlamydia; results pending - Imaging: Ordered and pending Plan: Smoking cessation Await GC and Urine culture results US appendix, RLQ to eval cause Refill Ibu 800 TID PRN as she reports it does help; despite initially telling me it did not help. I will fu w/ her when results are avail ED and RTO edu provided Consent Patient was informed and verbally consented to the use of an ambient scribe for clinic note documentation during this visit. Total time spent caring for the patient today was 40 minutes. This includes time spent before the visit reviewing the chart, time spent during the visit, and ti me spent after the visit on documentation, reviewing laboratory results, diagnostic imaging, medications, performing a medically necessary evaluation, counseling on diagnoses, care coordination, ordering appropriate tests, ordering appropriate medications, review of tests performed by other providers, reporting test results with the patient, communication with other healthcare providers. [facility] Medical History (Updated 10/22/24 @ 09:04 by Coleen García, [facility]) Acid reflux Anxiety Asthma delivery delivered Depression Fracture of fifth metacarpal bone of left hand Left wrist pain Surgical History Tubal ligation status Family History Father Alcohol abuse Brother FH: mental illness Sister FH: mental illness Lymphoma Mother Asthma Social History Housing: House Alcohol intake: current Alcohol intake frequency: holidays/special occasions only Patient Tobacco Use Status: Current everyday Tobacco user Tobacco use type: Cigarette Cigarettes Per Day: 10 Years Smoked: started around age 25, 0.5PPD, e-Cigarette/Vaping Use: Never Used Substance Use Type: Marijuana service: No Current occupational status: unemployed Current occupation: right hand dominant Current occupational exposures/hazards: No Cognitive needs: No Hearing needs: No Vision needs: Yes Questionnaire PHQ-9 Over the last 2 weeks, how often have you been bothered by any of the following problems? 1. Little interest or pleasure in doing things: not at all 2. Feeling down, depressed, or hopeless: not at all 3. Trouble falling or staying asleep, or sleeping too much: not at all 4. Feeling tired or having little energy: not at all 5. Poor appetite or overeating: not at all 6. Feeling bad about yourself - or that you are a failure or have let yourself or your family down: not at all 7. Trouble concentrating on things, such as reading the newspaper or watching television: not at all 8. Moving or speaking so slowly that other people could have noticed. Or the opposite - being so fidgety or restless that you have been moving around a lot more than usual: not at all 9. Thoughts that you would be better off or of hurting yourself in some way: not at all Total score: 0 Depression Screening Interpretation: Negative Depression Screening Done: Yes 63774 - PHQ-9 Billing: Yes Source: Developed by Drs. Andi Rodríguez, Ria Mueller, Dax Ayala and colleagues, with an educational óscar from [employer]. Thrive Questionnaire Date Thrive assessed: 10/22/24 I am a: Patient What is your living situation today?: I have a steady place to live Within the past 12 months, did the food you bought not last and you didn't have the money to get more?: Never true Within the past 12 months, did you worry whether your food would run out before you got money to buy more?: Never true Do you have trouble paying for medicines?: No Do you have trouble getting transportation to medical appointments?: No Do you have trouble paying your heating and electricity bill?: No Do you have trouble taking care of your child, family member or friend?: No Do you have trouble with day-to-day activities such as bathing, preparing meals, shopping, managing finances, etc.?: No Are you currently unemployed and looking for a job?: No Are you interested in more education?: No Please select the resources that you would like help with: None Currently or been in a relationship where the following occur: No concerns reported THRIVE Score: 0 AUDIT C Alcohol Use Questionnaire (AUDIT-C) 1. How often do you have a drink containing alcohol?: Monthly or less 2. How many drinks containing alcohol do you have on a typical day when you are drinking?: 1 or 2 3. How often do you have six or more drinks on one occasion?: Never Total Score: 1 ASHUTOSH-7 AMB Questionnaire ASHUTOSH-7 Date ASHUTOSH - 7 assessed: 10/22/24 Feeling nervous, anxious, or on edge: 1 = Several days Not being able to stop or control worryin = Several days Worrying too much about different things: 1 = Several days Trouble relaxin = Several days Being so restless that it is hard to sit still: 1 = Several days Becoming easily annoyed or irritable: 1 = Several days Feeling afraid as if something awful might happen: 0 = Not at all Total ASHUTOSH-7 score (0-4 normal; 5-9 mild; 10-14 moderate; 15-21 severe): 6 Source: Developed by Drs. Andi Rodríguez, Ria Mueller, Dax Ayala and colleagues, with an educational óscar from [employer]. Physical exam (Primary Care) Vital Signs: Last Vital Signs Temp 96.9 F 10/22/24 08:39 Pulse 84 10/22/24 08:39 Resp 12 10/22/24 08:39 BP 122/70 10/22/24 08:39 Pulse Ox 99 10/22/24 08:39 Oxygen Delivery Method Room Air 10/22/24 08:39 BMI result Body Mass Index 33.1 BMI Assessment/Plan discussion: High BMI High, discussed plan: lifestyle Tobacco/Smoking Status: Tobacco use Status Tobacco use date assessed 10/22/24 10/22/24 08:35 Patient Tobacco Use Status Current everyday Tobacco 10/22/24 08:35 Tobacco use type Cigarette 10/22/24 08:35 e-Cigarette/Vaping Use Never Used 10/22/24 08:35 Are you ready to quit: No Tobacco cessation counseling provided: Yes Items discussed: Nicotine replac ement, QuitWorks and Other Relapse Prevention: discussed the importance of a supportive environment, discussed extending NRT, discussed negative mood or depression after quitting, weight gain after smoking is common and discussed dietary, exercise and/or lifestyle changes Number of minutes spent counselin CPT code: 28824 - 4-10 Minutes PHQ-9: PHQ-9 Score PHQ-9: Total score 0 10/22/24 08:46 Depression Screening Interpretation: Negative Thrive Assessment: Date of Thrive Assessment Date Thrive assessed 10/22/24 10/22/24 08:35 Currently or been in a relationship where the following occur: No concerns reported Results AMB Test Urine AMB Test Urine Negative Last Edit by Yoselin Garg MA on 10/22 09:04 AMB Urinalysis, Automated UA Leukoctes 0 Ariana/uL Last Edit by Yoselin Garg MA on 10/22/24 09:04 UA Nitrite Negative Last Edit by Yoselin Garg MA on 10/22/24 09:04 UA Urobilinogen 3.5 mg/dL Last Edit by Yoselin Garg MA on 10/22/24 09:04 UA Protein 0 mg/dL Last Edit by Yoselin Garg MA on 10/22/24 09:04 UA pH 6.0 Last Edit by Yoselin Garg MA on 10/22/24 09:04 UA Blood 80 Humphery/uL Last Edit by Yoselin Garg MA on 10/22/24 09:04 UA Specific [place] 1.005 Last Edit by Yoselin Garg MA on 10/22/24 09:0 4 UA Ketone Negative Last Edit by Yoselin Garg MA on 10/22/24 09:04 UA Bilirubin 0 mg/dL Last Edit by Yoselin Garg MA on 10/22/24 09:04 UA Glucose mg/dL Last Edit by Yoselin Garg MA on 10/22/24 09:04 Results Reviewed Results Reviewed: Laboratory Last Values Urine pH (Auto) 6.0 10/22/24 09:02 Specific [place] (Auto) 1.005 10/22/24 09:02 Urine Protein (Auto) 0 mg/dL 10/22/24 09:02 Urine Ketones (Auto) Negative 10/22/24 09:02 Urine Blood (Auto) 80 Humphrey/uL 10/22/24 09:02 Urine Nitrite (Auto) Negative 10/22/24 09:02 Urine Bilirubin (Auto) 0 mg/dL 10/22/24 09:02 Urine Urobilinogen (Auto) 3.5 mg/dL 10/22/24 09:02 Leukocyte Esterase (Auto) 0 Ariana/uL 10/22/24 09:02 Tst Clinic Negative 10/22/24 09:02 Coding Level of Care Code Est Pt Level 5 (46921) Complex EM visit Add On G2211 Diagnoses Right groin pain R10.31 RLQ abdominal pain R10.31 [place] of foot L84 Plantar wart of left foot B07.0 Urine test negative Z32.02 Potential exposure to STD Z20.2 Tobacco dependence F17.200 Additional Codes PHQ-9 - 52635 - PHQ-9 Billing: Yes ([id number]) Vital Signs *Quality* - CPT code: 19034 - 4-10 Minutes ([id number]) Assessment & Plan Assessment & Plan (1) Right groin pain: Code(s): R10.31 - Right lower quadrant pain Category: Medical (2) RLQ abdominal pain: Code(s): R10.31 - Right lower quadrant pain Category: Medical (3) [place] of foot: Code(s): L84 - Corns and callosities Category: Medical (4) Plantar wart of left foot: Code(s): B07.0 - Plantar wart Category: Medical (5) Urine test negative: Code(s): Z32.02 - Encounter for test, result negative (6) Potential exposure to STD: Code(s): Z20.2 - Contact with and (suspected) exposure to infections with a predominantly sexual mode of transmission (7) Tobacco dependence: Code(s): F17.200 - Nicotine dependence, unspecified, uncomplicated Category: Medical Plan . Orders: Orders CT NG by PCR Urine Today Z20.2 - Contact with and (suspected) exposure to infections with a predominantly sexual mode of transmission AMB HCG Urine Test Today Z32.02 - Encounter for test, result negative US appendix Today R10.31 - Right lower quadrant pain US abdomen limited Today R10.31 - Right lower quadrant pain AMB Urinalysis Automated Today Z13.9 - Encounter for screening, unspecified Urine Culture Today R39.9 - Unspecified symptoms and signs involving the genitourinary system Referrals Podiatry Referral B07.0 - Plantar wart, L84 - Corns and callosities Medications: New ibuprofen 800 mg PO Q8H PRN 30 tabs 2RF pain
[2024-10-22 08:39] VITALS: BP 122/70; PULSE 84; RESP 12; TEMP 36.1; O2SAT 99; BMI 33.1
== END 2024-10-22 09:09 | disposition home or self-care (01) ==
LOC: HO.HMCFM 08:31
PROVIDERS: PCP Nurse Practitioner Family; Visit Provider Nurse Practitioner Family
DX: R10.31 Right lower quadrant pain (principal); L84 Corns and callosities; B07.0 Plantar wart; Z32.02 Encounter for pregnancy test, result negative; Z20.2 Contact with and (suspected) exposure to infections with a predominantly sexual mode of transmission; F17.200 Nicotine dependence, unspecified, uncomplicated

== ENCOUNTER 2024-10-22 11:09 | Outpatient (REF) | payer OTHER, SELFPAY ==
--- NOTE | ~2024-10-22 | US_ITS ---
Please combine report. Electronically signed by: Harsh Hurst MD 10/22/2024 12:32 PM EDT RP
--- NOTE | ~2024-10-22 | US_ITS ---
EXAMINATION: US RIGHT LOWER QUADRANT ABDOMEN, LIMITED/FOLLOW UP CLINICAL INFORMATION: Right lower quadrant abdominal pain. COMPARISON: None available. TECHNIQUE: Real-time ultrasound using grayscale and color Doppler technique. Of the right lower quadrant abdomen with the special attention to the soft tissues and the peritoneal cavity. FINDINGS: There is a 5 mm tubular anechoic structure in the right lower quadrant of the abdomen/peritoneal cavity without flow on color Doppler interrogation or compression. There is trace of free fluid. US/US pelvic limited IMPRESSION: Questionable noncompressible tubular structure with a trace of free fluid in the right lower quadrant abdomen. Fairly acute appendicitis cannot be entirely excluded. Recommend dedicated IV contrast enhanced CT abdomen pelvis. Electronically signed by: Harsh Hurst MD 10/22/2024 12:21 PM EDT
== END 2024-10-22 11:10 | disposition home or self-care (01) ==
LOC: HO.US 11:09
PROVIDERS: PCP Nurse Practitioner Family; Visit Provider Nurse Practitioner Family
DX: Z13.89 Encounter for screening for other disorder (principal)
CPT/HCPCS: 76705; 76857

== ENCOUNTER → 2024-10-22 11:17 | Outpatient (BNV) | payer OTHER, SELFPAY | PROVIDERS: PCP Nurse Practitioner Family; Visit Provider Radiology Diagnostic Radiology | DX: R10.31 Right lower quadrant pain (principal); R19.03 Right lower quadrant abdominal swelling, mass and lump | CPT/HCPCS: 74177; 76705; 76857 ==

== ENCOUNTER 2024-10-22 15:15 | Emergency (ER) | payer OTHER, SELFPAY ==
--- NOTE | ~2024-10-22 | CT_ITS ---
CLINICAL HISTORY: RLQ pain and tender, US sugg poss appy, hx unclear CT abdomen and pelvis with contrast Comparison: None provided Findings: Mild bibasilar atelectasis partially imaged. Mild fat deposition of the liver. Likely small cholelithiasis by CT (imaged 97 of series 3). The adrenal glands are normal. Partially imaged spleen is nonenlarged. Mild volume loss of the pancreas noted. No hydronephrosis. Portions of the abdomen excluded on submitted axial images, coronal images, and submitted sagittal images. Imaged appendix is within normal limits (image 56 of series 6). Wall thickening of the large intestine is nonspecific and concerning for colitis, including cecum. Reported ultrasound is not available for review at this time. The uterus is anteverted. Ventral accentuated of the imaged endometrium is nonspecific and can be seen with adenomyosis, previous section, and variant endometrial anatomy. No adnexal soft tissue mass by CT. Mild-moderate wall thickening of the urinary bladder is nonspecific. Small fat containing inguinal hernias. Degenerative changes include imaged facet arthropathy. Schmorl's nodes are multifocal. IMPRESSION: 1. Wall thickening of the large intestine is nonspecific and concerning for colitis, including imaged cecum. 2. Wall thickening of the urinary bladder is nonspecific. This document has been electronically signed by: Michael Buckner MD on 10/22/2024 19:15:52
[2024-10-22 15:25] VITALS: BP 122/63; PULSE 94; RESP 16; TEMP 36.8; O2SAT 95; BMI 33.1
--- NOTE | 2024-10-22 15:29 | ED.GENADULT ---
HPI - General Adult General Chief complaint: Abdominal Pain Stated complaint: Sent by PCP - appendicitis Time Seen by Provider: 10/22/24 17:17 History of Present Illness ED Provider: Dylon HUNG narrative: The patient is a 38-year-old female who has been having problems with right lower quadrant abdominal pain for approximately 3 weeks. She has followed up with her primary care doctor. Today she had an outpatient ultrasound of the abdomen which was read as possibly showing findings consistent with a appendicitis. She was therefore referred to the emergency room. The patient says that her symptoms has been largely positional. They do not seem to has been related to eating. Her last meal was yesterday. She is currently very hungry. No definite fever. She has had occasional episodes of loose stools. Yesterday she says she had 2 loose stools. She has had no loose stools today. Related Data Home Medications ?Medication ?Instructions ?Recorded ?Confirmed vortioxetine 10 mg tablet 10 mg PO DAILY 06/20/23 10/22/24 (Trintellix) propranolol 10 mg tablet mg PO BID 06/26/24 10/22/24 aripiprazole 2 mg tablet (Abilify) 2 mg PO DAILY 10/22/24 10/22/24 Previous Rx's ?Medication ?Instructions ?Recorded ipratropium bromide 17 2 puff inhalation TID #12.9 grams 02/07/24 mcg/actuation HFA aerosol inhaler (Atrovent HFA) nicotine 21 mg/24 hr daily 1 patch transdermal Q24H #28 ea 02/07/24 transdermal patch albuterol sulfate 90 mcg/actuation 2 inh inhalation Q4-6H PRN 03/11/24 breath activated powder inhaler shortness of breath or wheezing #1 (ProAir RespiClick) ea albuterol sulfate 0.63 mg/3 mL 0.63 mg (3 mL) inhalation Q4-6H 03/24/24 solution for nebulization PRN shortness of breath or wheezing #75 mL cetirizine 10 mg tablet (Allergy 20 mg (2 x 10 mg) PO DAILY 90 days 03/24/24 Relief (cetirizine)) #180 tabs omeprazole 40 mg capsule,delayed 40 mg PO DAILY #90 caps 03/24/24 release dupilumab 300 mg/2 mL subcutaneous 300 mg (2 mL) subcut Q2W #4 mL 04/16/24 pen injector ([employer]) budesonide-formoterol HFA 80 1 puff inhalation BID #10.2 grams 06/26/24 mcg-4.5 mcg/actuation aerosol inhaler (Symbicort) acetaminophen 500 mg capsule 1,000 mg (2 x 500 mg) PO Q8H PRN 10/22/24 fever or pain #14 caps ibuprofen 400 mg tablet 400 mg PO Q6H PRN pain #14 tabs 10/22/24 ibuprofen 800 mg tablet 800 mg PO Q8H PRN pain #30 tabs 10/22/24 Allergies Allergy/AdvReac Type Severity Reaction Status Date / Time Sulfa (Sulfonamide Allergy Severe SHORTNESS Verified 10/22/24 15:28 Antibiotics) OF BREATH, (SULFA(SULFONAMIDE SWELLING ANTIBIOTICS)) ALL OVER, anaphylaxis bee pollen (BEE STINGS) Allergy Unknown SWELLING Verified 10/22/24 15:28 mushroom (MUSHROOM) Allergy Unknown ANAPHYLAXIS Verified 10/22/24 15:28 cat dander AdvReac Rash Verified 10/22/24 15:28 dog dander AdvReac Rash Verified 10/22/24 15:28 shell fish Allergy Severe Anaphylaxis Uncoded 10/22/24 15:28 RAISIN Allergy Intermediate HIVES, Uncoded 10/22/24 15:28 THROAT SWELLING bees Allergy Unknown anaphylaxis Uncoded 10/22/24 15:28 mushrooms Allergy Unknown anaphylaxis Uncoded 10/22/24 15:28 raisins Allergy Unknown anaphylaxis Uncoded 10/22/24 15:28 Review of Systems Review of Systems: Yes all other systems are reviewed and are negative [facility] Past Medical History Medical History (Updated 10/22/24 @ 19:46 by Patrick Osborne MD) Left wrist pain Fracture of fifth metacarpal bone of left hand Depression Anxiety Acid reflux delivery delivered Asthma Surgical History Tubal ligation status Family History Family History Father Alcohol abuse Brother FH: mental illness Sister FH: mental illness Lymphoma Mother Asthma Social History Social History Housing: House Alcohol intake: current Alcohol intake frequency: holidays/special occasions only Patient Tobacco Use Status: Current everyday Tobacco user Tobacco use type: Cigarette Cigarettes Per Day: 10 Years Smoked: started around age 25, 0.5PPD, Smoked in Last 30 Days: Yes e-Cigarette/Vaping Use: Never Used Use of substances other than those prescribed or required for medical reasons: No Substance Use Type: Marijuana Advance Directives: No Advance Directives Information Provided: Yes Patient : No service: No Current occupational status: unemployed Current occupation: right hand dominant Current occupational exposures/hazards: No Cognitive needs: No Hearing needs: No Vision needs: Yes Physical Exam ED Vital Signs: Vital Signs - 24 hr 10/22/24 15:25 10/22/24 16:51 10/22/24 18:39 Temperature 98.2 F 98.3 F 98.4 F Pulse Rate 94 75 78 Respiratory Rate 16 18 16 Blood Pressure 122/63 118/76 115/68 Pulse Oximetry 95 97 98 Oxygen Delivery Method Room Air Room Air Room Air 10/22/24 20:10 10/22/24 20:10 Temperature 97.8 F 97.8 F Pulse Rate 78 78 Respiratory Rate 16 16 Blood Pressure 123/81 123/81 Pulse Oximetry 99 99 Oxygen Delivery Method Room Air Room Air BMI result Body Mass Index 33.1 Const Other: The patient is awake, alert, pleasant, cooperative. She does not appear in obvious distress. Orientation/consciousness: patient oriented x3 HENMT Other: The face is symmetrical. ?Mucous membranes moist. Eyes Other: Pupils are round equal, conjunctivae are clear, extraocular movements intact Neck Neck: Yes normal visual inspection and Yes full ROM Resp Effort & Inspection: normal respiratory effort Auscultation: clear to auscultation bilaterally Cardio Rate: regular rate Rhythm: regular rhythm Heart sounds: S1 normal heart sound present and S2 normal heart sound present GI Other: The abdomen is soft. There is tenderness in the right lower quadrant. Slight guarding in the right lower quadrant. Skin Other: The skin is dry and unremarkable Neuro General: patient oriented x3, tone normal, moves all extremities and no focal motor deficits Extrem Other: There is no calf swelling or tenderness. No asymmetry. No peripheral edema. Course Course Course Narrative: RME, this is a rapid medical exam performed by Jed Quintero please refer to primary provider for complete H&P- 38-year-old female presents for evaluation of right lower quadrant abdominal pain for the last 26 days. She went to her primary doctor for an ultrasound which shows a tubular structure and can not be ruled out for appendicitis. Plan for labs urinalysis. Will defer any additional imaging at this time Medications Administered Discontinued Medications Generic Name Dose Route Start Last Admin Trade Name Iva PRN Reason Stop Dose Admin Iohexol 100 ml 10/22/24 18:25 10/22/24 18:25 Iohexol 350 Mg/Ml 100 Ml Infus..Btl IV 10/22/24 18:26 85 ml ONCE ONE Administration Ketorolac Tromethamine 15 mg 10/22/24 17:28 10/22/24 19:27 Ketorolac Tromethamine 15 Mg/Ml Vial IVPUSH 10/22/24 17:29 15 mg ONCE ONE Administration Ondansetron HCl 4 mg 10/22/24 17:29 10/22/24 19:26 Ondansetron Hcl 4 Mg/2 Ml Vial IVPUSH 10/22/24 17:30 4 mg ONCE ONE Administration Medical Decision Making Medical Decision Making [facility] Narrative: The patient is a 38-year-old female who was sent to the emergency room after having had an outpatient ultrasound of her right lower quadrant potentially consistent with appendicitis. The patient's history is not highly suggestive of appendicitis. The patient's pain has been present for 3 weeks. She has not been ill. She has not had nausea. She is currently very hungry. Given the finding on ultrasound I felt obligated to pursue a CT scan. The CT scan shows a normal appendix but shows wall thickening of the cecum and ascending colon. The significance of this finding is not clear. The patient does not appear toxic or ill. She does not really have symptoms of colitis. She describes a few loose stools but no copious loose stools. She is hungry and looks well. She is eager for discharge so she can have some food. I think she may be discharged to follow up with the regular doctor. She may need a colonoscopy. Lab Data 10/22/24 15:39 10/22/24 15:39 Labs: Lab Results 10/22/24 10/22/24 Range/Units 15:39 17:54 WBC 11.2 H (4.8-10.8) X10*3/uL RBC 5.08 (4.20-5.50) X10*6/uL Hgb 13.3 (12.0-16.0) g/dl Hct 41.3 (37.0-47.0) % MCV 81.3 (80.0-98.0) fL MCH 26.2 L (27.0-33.0) pg MCHC 32.2 (31.0-35.0) g/dl RDW 16.7 H (11.0-16.0) % Plt Count 402 H (160-400) X10*3/uL MPV 9.7 (9.4-12.3) fL Immature Gran % (Auto) 0.4 (0.0-0.4) % Neut % (Auto) 71.9 (45-73) % Lymph % (Auto) 20.7 (20-40) % [place] % (Auto) 4.3 (2-11) % Eos % (Auto) 1.9 (0-4) % Baso % (Auto) 0.8 (0-2) % Lymph # (Auto) 2.3 (1.2-4.9) X10*3/uL [place] # (Auto) 0.5 (0.1-1.2) X10*3/uL Eos # (Auto) 0.2 (0.0-0.4) X10*3/uL Baso # (Auto) 0.1 (0.0-0.2) X10*3/uL Abs Immat Gran (auto) 0.05 H (0.00-0.03) X10*3/uL Absolute Neuts (auto) 8.1 (2.0-8.3) x10*3/uL Absolute Nucleated RBC 0.000 (0.0-0.012) X10*3/uL Nucleated RBC % (auto) 0.0 (0.0-0.2) /100WBC Sodium 143 (135-145) mmol/L Potassium 3.6 (3.3-5.1) mmol/L Chloride 108 (96-108) mmol/L Carbon Dioxide 26 (22-29) mmol/L Anion Gap 13 (12-20) BUN 7 L (9-16) mg/dL Creatinine 0.70 (0.5-1.4) mg/dL Estim Creat Clear Calc 113.5 Estimated GFR > 60 Random Glucose 98 (60-115) mg/dL Calcium 9.3 D (8.4-10.2) mg/dL Total Bilirubin 0.2 (0.0-1.0) mg/dL AST 25 (5-31) U/L ALT 29 (0-31) U/L Alkaline Phosphatase 105 (39-117) U/L Total Protein 7.3 (6.5-8.0) g/dL Albumin 4.6 (3.5-5.0) g/dL Lipase 13 (8-78) U/L Beta HCG, Quant < 2 mIU/mL Urine Color Dark Yellow Urine Appearance Clear Urine pH 6.0 (5.0-9.0) Ur Specific [place] 1.020 (1.005-1.025) Urine Protein Negative (Neg-Trace) mg/dL Urine Glucose (UA) Negative (Negative) mg/dL Urine Ketones Trace (Negative) mg/dL Urine Blood Negative (Negative) Urine Nitrite Negative (Negative) Ur Leukocyte Esterase Negative (Negative) Urine RBC 0-2 (0-2) /HPF Urine WBC 0-5 (0-5) /HPF Ur Squamous Epith Cells 6-10 (0-2) /HPF Calcium Oxalate Crystal Present Urine Bacteria 1+ (None Seen) Hyaline Casts 0-2 (0-2) /LPF Discharge Plan Discharge Clinical Impression: Right lower quadrant abdominal pain, Colon wall thickening Patient Disposition: Home, Self-Care Additional Instructions: Your CAT scan shows that your appendix looks normal. However there is some thickening of the wall of the right side of your colon. It is not clear what this means or if this is the source of your pain. You will probably need to have a colonoscopy to check into this. Please plan on contacting your primary care doctor tomorrow to discuss this further and make a referral to Gastroenterology. In the meantime you may use ibuprofen and acetaminophen as needed for discomfort. Return to the emergency room if significantly worse. Prescriptions: New ibuprofen 400 mg tablet 400 mg PO Q6H PRN (Reason: pain) Qty: 14 0RF acetaminophen 500 mg capsule 1,000 mg PO Q8H PRN (Reason: fever or pain) Qty: 14 0RF No Action Dupixent Pen 300 mg/2 mL pen injector 300 mg subcut Q2W Qty: 4 12RF Trintellix 10 mg tablet 10 mg PO DAILY nicotine 21 mg/24 hr patch 24 hour 1 patch transdermal Q24H Qty: 28 2RF Atrovent HFA 17 mcg/actuation HFA aerosol inhaler 2 puff inhalation TID Qty: 12.9 6RF propranolol 10 mg tablet PO BID budesonide-formoterol [Symbicort] 80-4.5 mcg/actuation HFA aerosol inhaler 1 puff inhalation BID Qty: 10.2 3RF ProAir RespiClick 90 mcg/actuation aerosol powdr breath activated 2 inh inhalation Q4-6H PRN (Reason: shortness of breath or wheezing) Qty: 1 6RF albuterol sulfate 0.63 mg/3 mL solution for nebulization 0.63 mg inhalation Q4-6H PRN (Reason: shortness of breath or wheezing) Qty: 75 3RF omeprazole 40 mg capsule,delayed release(DR/EC) 40 mg PO DAILY Qty: 90 2RF cetirizine [Allergy Relief (cetirizine)] 10 mg tablet 20 mg PO DAILY 90 Days Qty: 180 2RF aripiprazole [Abilify] 2 mg tablet 2 mg PO DAILY ibuprofen 800 mg tablet 800 mg PO Q8H PRN (Reason: pain) Qty: 30 2RF Referrals: [facility] [Provider Group, Gastroenterology] Coleen García, [employer] [Primary Care Provider, Internal Medicine] Interventions: ED Discharge Assessment Last Done: 10/22/24 20:10 Discharge Date/Time: 10/22/24 20:15 Print Language: [place]
[2024-10-22 15:43] LABS: MANUAL DIFF FLAG NO
[2024-10-22 15:45] LABS: Hematocrit 41.3 % (37.0-47.0); Hemoglobin 13.3 g/dl (12.0-16.0); Imm Gran Abs Auto 0.05 X10*3/uL (0.00-0.03); Imm Gran Pct Auto 0.4 % (0.0-0.4); Lymphocytes Absolute Auto 2.3 X10*3/uL (1.2-4.9); Mean Corpuscular HGB Conc 32.2 g/dl (31.0-35.0); Mean Corpuscular Hemoglobin 26.2 pg (27.0-33.0); Mean Corpuscular Volume 81.3 fL (80.0-98.0); NRBC Abs Auto 0.000 X10*3/uL (0.0-0.012); NRBC Pct Auto 0.0 /100WBC (0.0-0.2); Platelet Count 402 X10*3/uL (160-400); Red Blood Count 5.08 X10*6/uL (4.20-5.50); White Blood Count 11.2 X10*3/uL (4.8-10.8)
[2024-10-22 16:09] LABS: Alanine Aminotransferase 29 U/L (0-31); Albumin Level 4.6 g/dL (3.5-5.0); Alkaline Phosphatase 105 U/L (39-117); Anion Gap 13 (12-20); Aspartate Amino Transferase 25 U/L (5-31); Blood Urea Nitrogen 7 mg/dL (9-16); Calcium 9.3 mg/dL (8.4-10.2); Carbon Dioxide 26 mmol/L (22-29); Chloride 108 mmol/L (96-108); Creatinine Clr Calc Pharmacy 113.5; Estimated Glomerular Filt Rate > 60; Lipase 13 U/L (8-78); Potassium 3.6 mmol/L (3.3-5.1); Sodium 143 mmol/L (135-145); Total Protein 7.3 g/dL (6.5-8.0)
[2024-10-22 16:51] VITALS: BP 118/76; PULSE 75; RESP 18; TEMP 36.8; O2SAT 97
[2024-10-22 18:04] LABS: Appearance Urine Clear; Glucose Urine UA Negative (Negative); PH 6.0 (5.0-9.0); Specific Gravity - Urine 1.020 (1.005-1.025)
[2024-10-22] MEDS: iohexoL 350 MG/ML 100 ML INFUS..BTL IV (18:25)
[2024-10-22 18:39] VITALS: BP 115/68; PULSE 78; RESP 16; TEMP 36.9; O2SAT 98
[2024-10-22 20:10] VITALS: BP 123/81; PULSE 78; RESP 16; TEMP 36.6; O2SAT 99
== END 2024-10-22 20:15 | disposition home or self-care (01) ==
PROVIDERS: Physician Assistant; Emergency Provider Emergency Medicine; PCP Nurse Practitioner Family
DX: R10.31 Right lower quadrant pain (principal); R93.3 Abnormal findings on diagnostic imaging of other parts of digestive tract; Z79.899 Other long term (current) drug therapy
CPT/HCPCS: 36415; 74177; 80053; 81001; 83690; 84702; 85025; 96374; 96375; 99284; J1885; J2405; Q9967

== ENCOUNTER 2024-11-27 09:05 | Outpatient (AMB) | payer OTHER, SELFPAY ==
--- NOTE | 2024-11-27 09:10 | MHC.OFFVIS ---
Intake Visit Reasons: New Pt - B/L feet pain/corns & callositites Intake Note: Kailey is a 38 year old female who present today as a new patient for bilateral feet pain. She was referred by her PCP on 10/22/24 due to a painful corn on the bottom of her right foot and also a wart on the bottom of her left foot. Patient reports ongoing pain for more than a year. She states that she uses nail clippers to picks at the area. Patient has tried tylenol with no relief. Allergies Sulfa (Sulfonamide Antibiotics) (SULFA(SULFONAMIDE ANTIBIOTICS)) Allergy (Severe, Verified 11/27/24 09:15) SHORTNESS OF BREATH, SWELLING ALL OVER, anaphylaxis bee pollen (BEE STINGS) Allergy (Unknown, Verified 11/27/24 09:15) SWELLING mushroom (MUSHROOM) Allergy (Unknown, Verified 11/27/24 09:15) ANAPHYLAXIS cat dander Adverse Reaction (Verified 11/27/24 09:15) Rash dog dander Adverse Reaction (Verified 11/27/24 09:15) Rash shell fish Allergy (Severe, Uncoded 10/22/24 15:28) Anaphylaxis RAISIN Allergy (Intermediate, Uncoded 10/22/24 15:28) HIVES, THROAT SWELLING bees Allergy (Unknown, Uncoded 10/22/24 15:28) anaphylaxis mushrooms Allergy (Unknown, Uncoded 10/22/24 15:28) anaphylaxis raisins Allergy (Unknown, Uncoded 10/22/24 15:28) anaphylaxis HPI HPI New Pt - B/L feet pain/corns & callositites: Details: Patient is a 38-year-old female with history of pain to the bottom of her right foot for the past several years. She has tried at home remedies including using moisturizers and debriding it herself. She states the pain is worst when walking. She wears supportive shoes and is wearing crocs today. 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 She also notes a spot underneath her left foot which she was told by another provider that it may be a wart. [facility] Medical History (Updated 11/27/24 @ 09:57 by Jayme Christina DPM) Left wrist pain Fracture of fifth metacarpal bone of left hand Depression Anxiety Acid reflux delivery delivered Asthma Surgical History Tubal ligation status Family History Father Alcohol abuse Brother FH: mental illness Sister FH: mental illness Lymphoma Mother Asthma Social History Housing: House Alcohol intake: current Alcohol intake frequency: holidays/special occasions only Patient Tobacco Use Status: Current everyday Tobacco user Tobacco use type: Cigarette Cigarettes Per Day: 10 Years Smoked: started around age 25, 0.5PPD, e-Cigarette/Vaping Use: Never Used Substance Use Type: Marijuana service: No Current occupational status: unemployed Current occupation: right hand dominant Current occupational exposures/hazards: No Cognitive needs: No Hearing needs: No Vision needs: Yes Review of Systems Const All systems reviewed & are unremarkable except as noted in HPI and below Physical Exam Extrem Other: *Bilateral Lower Extremity Focused Exam Vascular: dp/pt 2/4, CFT<3s to digits, tg warm to cool, no pedal edema. Derm: Hyperkeratotic lesion with no pinpoint bleeding submet-3/4 region right foot. Right hallux pinch callus. Left medial arch 0.1cm x 0.1cm lesion with epithelial borders, red-brown pigmented lesion. Neuro: Protective sensation grossly intact to bilateral lower extremities. MSK: Mild tenderness on palpation of right foot sub-met-3/4 region. No flexion contracture of digits. Moderate arch foot type. Ankle/foot/toe images:  1. Office Procedures AMB Debridement/Avulsion Podia 92800-Buwahlnvbqg of Callus (2-4) (Debrided 3 lesions (2 right foot, 1 left foot) to level of dermis sharply using a #15 Blade. No pinpoint bleeding was noted.) Procedure code (CPT) selection complete Assessment & Plan Assessment & Plan (1) Metatarsalgia, right foot: Code(s): M77.41 - Metatarsalgia, right foot Category: Medical (2) [place] of foot: Comment: Right submet 3/4 region, right medial hallux, left plantar medial arch Code(s): L84 - Corns and callosities Category: Medical Plan #Right foot Metatarsalgia Discussed the etiology of right forefoot pain including possible corn versus verruca legion. Discussed possible hypertrophied versus elongated metatarsal bone(s), which can only be evaluated with a x-ray. She was referred for a right foot x-ray three views. Recommended supportive shoe-wear to maintain cushioning and balancing of her foot to decrease abnormal loading of the forefoot. May prescribe a foot orthosis at next visit. #[place], Bilateral feet Rx urea cream 20% to be applied daily. I explained that if her lesions are still forming quicker, she may be prescribed 40% at next visit. Orders: Orders XR foot RT min 3V Today M77.41 - Metatarsalgia, right foot AMB Debridement/Avulsion Podiatry Today L84 - Corns and callosities Medications: New urea 20% 1 appl topical DAILY 85 grams 3RF Apply to right foot Coding Level of Care Code New Pt Level 3 (22064) Diagnoses Metatarsalgia, right foot M77.41 [place] of foot L84 CPT Codes Skin Debridement - CPT: 33326-Cwawgwulpnl of Callus (2-4) ([id number]) Time Spent (min) 30 Comment New patient evaluation of right foot pain, left foot lesion. Performed debridements.
== END 2024-11-27 09:30 | disposition home or self-care (01) ==
LOC: HO.HPODS 09:06
PROVIDERS: PCP Nurse Practitioner Family; Visit Provider Student in an Organized Health Care Education/Training Program
DX: M77.41 Metatarsalgia, right foot (principal); L84 Corns and callosities
CPT/HCPCS: 11056; 99203

== ENCOUNTER → 2024-11-27 09:05 | Outpatient (BNVA) | payer OTHER, SELFPAY | PROVIDERS: PCP Nurse Practitioner Family; Visit Provider Student in an Organized Health Care Education/Training Program | DX: L84 Corns and callosities (principal); M79.672 Pain in left foot; M79.671 Pain in right foot; M77.41 Metatarsalgia, right foot | CPT/HCPCS: 11056; 99202 ==

== ENCOUNTER 2024-12-03 16:32 | Emergency (ER) | payer OTHER, SELFPAY ==
--- NOTE | ~2024-12-03 | CT_ITS ---
CLINICAL HISTORY: RLQ abdominal pain CT abdomen and pelvis with contrast Comparison: CT/SR - CT ABDOMEN PELVIS W IV CON - 10/22/24 18:20 EDT Findings: Small hiatal hernia. The liver, gallbladder, spleen, pancreas, kidneys and adrenal glands are normal in appearance. No bowel obstruction, pneumoperitoneum, or pneumatosis. No bowel wall thickening. There is fat within the right colon wall, a finding that can be associated with previous episodes of bowel inflammation. Uterus and adnexa are normal. The appendix is normal. No ascites. Decompressed urinary bladder. No acute fracture. IMPRESSION: No acute findings. This document has been electronically signed by: Victoriano Gonzales MD on 12/03/2024 21:21:40
[2024-12-03 16:52] VITALS: BP 136/82; PULSE 95; RESP 20; TEMP 36.4; O2SAT 99; BMI 30.9
--- NOTE | 2024-12-03 16:54 | ED.GENADULT ---
HPI - General Adult General Chief complaint: Abdominal Pain Stated complaint: Tube tied, positive preg test. Time Seen by Provider: 12/03/24 19:01 Source: patient, RN notes reviewed and old records reviewed Mode of arrival: ambulatory Limitations: no limitations History of Present Illness ED Provider: Leon HPI narrative: 38-year-old female with a past medical history significant for acid reflux, depression, anxiety, left salpingectomy due to ectopic presenting for evaluation of right lower abdominal pain. Patient reports that she developed abdominal pain 3 days ago with the associated nausea. She reports that she took the positive test every day for the last 3 days and they were all positive. In addition to her left salpingectomy she also had her tubes tied previously. She does retain both of her ovaries Denies any fevers or chills pain She denies any vaginal bleeding or discharge. Denies any urinary complaints Her pain in his 09/02 and she describes it as moderate Related Data Home Medications ?Medication ?Instructions ?Recorded ?Confirmed vortioxetine 10 mg tablet 10 mg PO DAILY 06/20/23 10/22/24 (Trintellix) propranolol 10 mg tablet mg PO BID 06/26/24 10/22/24 aripiprazole 2 mg tablet (Abilify) 2 mg PO DAILY 10/22/24 10/22/24 Previous Rx's ?Medication ?Instructions ?Recorded nicotine 21 mg/24 hr daily 1 patch transdermal Q24H #28 ea 02/07/24 transdermal patch albuterol sulfate 90 mcg/actuation 2 inh inhalation Q4-6H PRN 03/11/24 breath activated powder inhaler shortness of breath or wheezing #1 (ProAir RespiClick) ea albuterol sulfate 0.63 mg/3 mL 0.63 mg (3 mL) inhalation Q4-6H 03/24/24 solution for nebulization PRN shortness of breath or wheezing #75 mL cetirizine 10 mg tablet (Allergy 20 mg (2 x 10 mg) PO DAILY 90 days 03/24/24 Relief (cetirizine)) #180 tabs omeprazole 40 mg capsule,delayed 40 mg PO DAILY #90 caps 03/24/24 release dupilumab 300 mg/2 mL subcutaneous 300 mg (2 mL) subcut Q2W #4 mL 04/16/24 pen injector (Dupixent) acetaminophen 500 mg capsule 1,000 mg (2 x 500 mg) PO Q8H PRN 10/22/24 fever or pain #14 caps ibuprofen 400 mg tablet 400 mg PO Q6H PRN pain #14 tabs 10/22/24 ibuprofen 800 mg tablet 800 mg PO Q8H PRN pain #30 tabs 10/22/24 budesonide-formoterol HFA 80 1 puff inhalation BID #10.2 grams 11/14/24 mcg-4.5 mcg/actuation aerosol inhaler (Symbicort) ipratropium bromide 17 2 puff inhalation TID #12.9 grams 11/18/24 mcg/actuation HFA aerosol inhaler (Atrovent HFA) urea 20 % topical cream 1 appl topical DAILY Apply to 11/27/24 right foot #85 grams Allergies Allergy/AdvReac Type Severity Reaction Status Date / Time Sulfa (Sulfonamide Allergy Severe SHORTNESS Verified 12/03/24 16:55 Antibiotics) OF BREATH, (SULFA(SULFONAMIDE SWELLING ANTIBIOTICS)) ALL OVER, anaphylaxis bee pollen (BEE STINGS) Allergy Unknown SWELLING Verified 12/03/24 16:55 mushroom (MUSHROOM) Allergy Unknown ANAPHYLAXIS Verified 12/03/24 16:55 cat dander AdvReac Rash Verified 12/03/24 16:55 dog dander AdvReac Rash Verified 12/03/24 16:55 shell fish Allergy Severe Anaphylaxis Uncoded 12/03/24 16:55 RAISIN Allergy Intermediate HIVES, Uncoded 12/03/24 16:55 THROAT SWELLING bees Allergy Unknown anaphylaxis Uncoded 12/03/24 16:55 mushrooms Allergy Unknown anaphylaxis Uncoded 12/03/24 16:55 raisins Allergy Unknown anaphylaxis Uncoded 12/03/24 16:55 Review of Systems Constitutional: Constitutional: Denies body ache(s), Denies chills, Denies fever(s) and Denies headache(s) ENT: Denies dizziness and Denies headache(s) Cardiovascular: Cardiovascular: Denies chest pain and Denies dyspnea on exertion Respiratory: Respiratory: Denies cough and Denies dyspnea on exertion Gastrointestinal: Gastrointestinal: Reports abdominal pain, Denies melena, Denies hematochezia, Denies constipation, Reports nausea and Denies vomiting Genitourinary: Genitourinary: Denies difficulty voiding, Denies dysuria, Denies pelvic pain and Denies flank pain Musculoskeletal: Musculoskeletal: Denies back pain Integumentary/Breasts: Skin/Breast: Denies rash Neurologic: Denies dizziness and Denies headache(s) Psychiatric: Psychiatric: Denies anxiety PMFSH Past Medical History Medical History (Updated 12/03/24 @ 21:57 by Ashwin Quintero) Left wrist pain Fracture of fifth metacarpal bone of left hand Depression Anxiety Acid reflux delivery delivered Asthma Surgical History Tubal ligation status Family History Family History Father Alcohol abuse Brother FH: mental illness Sister FH: mental illness Lymphoma Mother Asthma Social History Social History Housing: House Alcohol intake: current Alcohol intake frequency: holidays/special occasions only Patient Tobacco Use Status: Current everyday Tobacco user Tobacco use type: Cigarette Cigarettes Per Day: 10 Years Smoked: started around age 25, 0.5PPD, e-Cigarette/Vaping Use: Never Used Substance Use Type: Marijuana Advance Directives: No service: No Current occupational status: unemployed Current occupation: right hand dominant Current occupational exposures/hazards: No Cognitive needs: No Hearing needs: No Vision needs: Yes Physical Exam ED Vital Signs: Vital Signs - 24 hr 12/03/24 16:52 Temperature 97.6 F Pulse Rate 95 Respiratory Rate 20 Blood Pressure 136/82 Pulse Oximetry 99 Oxygen Delivery Method Room Air BMI result Body Mass Index 30.9 Const General: healthy appearing, comfortable, no acute distress, alert and awake Nutritional Appearance: well nourished Orientation/consciousness: patient oriented x3 HENMT Head: Yes normocephalic and Yes atraumatic Eyes Eyelids: Yes eyelids normal Conjunctivae: conjunctivae normal Sclerae: sclerae normal Corneas: corneas normal Pupils: Equal, round and reactive pupils present EOM: EOMs intact bilaterally Neck Neck: Yes full ROM Resp Effort & Inspection: normal respiratory effort, able to speak in complete sentences and not labored Cardio Rate: regular rate Rhythm: regular rhythm GI Inspection: No distended Palpation (GI): Soft to palpation, not firm, Tenderness to palpation present (GI) in the RLQ and in the RUQ; not in the epigastrum, not in the LLQ, not in the LUQ, Mandel's sign negative and Rovsing's sign negative, no guarding and not rigid Auscultation: normoactive bowel sounds Skin General skin exam: no rashes or lesions noted and elasticity normal Neuro General: patient oriented x3 Cranial nerves: Yes Equal, round and reactive pupils present and Yes Bilaterally intact EOM present Cognition (Neuro): normal cognition Extrem Other: Moving all extremities well without any obvious deformities Course Course Course Narrative: This is a Rapid Medical Examination (RME) performed by Julieth Palumbo PA-C in triage. Full HPI, ROS, assessment and treatment plan per primary provider in the Main ED. Hx: 38 yo G807 F here for eval of nausea and RLQ pain with 3+ positive home tests. hx of L salpinectomy secondary to tubal. denies vaginal bleeding. LMP in August 2024. Plan: labs, UA, preg, ultrasound Reevaluation(s) Reevaluation #1: Discussed patient's workup with her. Her CT did not show any findings to explain her pain. Urinalysis has not been collected. The patient denies any burning with urination, urinary frequency. I did recommend sending a urinalysis given her lower abdominal pain but she would like to be discharged home at this time. She has no evidence of infectious process, no leukocytosis, no fever. She will be discharged and can follow up any further concerns with the primary doctor Time: 21:57 Medications Administered Discontinued Medications Generic Name Dose Route Start Last Admin Trade Name Freq PRN Reason Stop Dose Admin Iohexol 100 ml 12/03/24 20:29 12/03/24 20:29 Iohexol 350 Mg/Ml 100 Ml Infus..Btl IV 12/03/24 20:30 85 ml ONCE ONE Administration Medical Decision Making Medical Decision Making MDM Narrative: 38-year-old female with a past medical history as above presents for evaluation of lower abdominal pain for the last 3 days. The patient's pain is mostly right-sided, she does have some mild tenderness on exam in the right lower quadrant. No rebound or guarding. She also has some mild right upper quadrant tenderness but negative Mandel's sign. The patient has no leukocytosis or significant neutrophilia. There was no significant anemia. Normal platelet count. No significant electrolyte abnormalities warranting intervention. LFTs are normal limits. Total bilirubin is normal at 0.3. Renal function within normal limits. Given the patient's serum hCG of less than 2, the patient is not . We will get a urinalysis to evaluate for UTI, CT scan of the abdomen pelvis to evaluate for acute appendicitis versus constipation versus diverticulitis. She may also have an ovarian cyst but less likely torsion given her reassuring exam Differential Diagnosis Differential Diagnoses: The differential diagnosis associated with the presentation includes As above Lab Data MDM Lab Attestation statement: I reviewed the patient's lab results. As above 12/03/24 17:32 12/03/24 17:32 Labs: Lab Results 12/03/24 Range/Units 17:32 WBC 9.1 (4.8-10.8) X10*3/uL RBC 4.71 (4.20-5.50) X10*6/uL Hgb 12.4 (12.0-16.0) g/dl Hct 38.7 (37.0-47.0) % MCV 82.2 (80.0-98.0) fL MCH 26.3 L (27.0-33.0) pg MCHC 32.0 (31.0-35.0) g/dl RDW 15.9 (11.0-16.0) % Plt Count 352 (160-400) X10*3/uL MPV 9.9 (9.4-12.3) fL Immature Gran % (Auto) 1.0 H (0.0-0.4) % Neut % (Auto) 62.8 (45-73) % Lymph % (Auto) 27.5 (20-40) % [place] % (Auto) 5.0 (2-11) % Eos % (Auto) 2.0 (0-4) % Baso % (Auto) 1.7 (0-2) % Lymph # (Auto) 2.5 (1.2-4.9) X10*3/uL [place] # (Auto) 0.5 (0.1-1.2) X10*3/uL Eos # (Auto) 0.2 (0.0-0.4) X10*3/uL Baso # (Auto) 0.2 (0.0-0.2) X10*3/uL Abs Immat Gran (auto) 0.09 H (0.00-0.03) X10*3/uL Absolute Neuts (auto) 5.7 (2.0-8.3) x10*3/uL Absolute Nucleated RBC 0.020 H (0.0-0.012) X10*3/uL Nucleated RBC % (auto) 0.2 (0.0-0.2) /100WBC Sodium 139 (135-145) mmol/L Potassium 4.2 (3.3-5.1) mmol/L Chloride 107 (96-108) mmol/L Carbon Dioxide 24 (22-29) mmol/L Anion Gap 12 (12-20) BUN 9 (9-16) mg/dL Creatinine 0.76 (0.5-1.4) mg/dL Estim Creat Clear Calc 108.5 Estimated GFR > 60 Random Glucose 90 (60-115) mg/dL Calcium 9.3 (8.4-10.2) mg/dL Magnesium 2.0 (1.6-2.6) mg/dL Total Bilirubin 0.3 (0.0-1.0) mg/dL AST 31 (5-31) U/L ALT 29 (0-31) U/L Alkaline Phosphatase 94 (39-117) U/L Total Protein 7.2 (6.5-8.0) g/dL Albumin 4.5 (3.5-5.0) g/dL Lipase 16 (8-78) U/L Beta HCG, Quant < 2 mIU/mL Radiology Impression Discussion of test interpretation with radiology: I have reviewed the radiologist's reading. Radiologist Impression: Findings: Small hiatal hernia. The liver, gallbladder, spleen, pancreas, kidneys and adrenal glands are normal in appearance. No bowel obstruction, pneumoperitoneum, or pneumatosis. No bowel wall thickening. There is fat within the right colon wall, a finding that can be associated with previous episodes of bowel inflammation. Uterus and adnexa are normal. The appendix is normal. No ascites. Decompressed urinary bladder. No acute fracture. IMPRESSION: No acute findings. This document has been electronically signed by: Victoriano Gonzales MD on 12/03/2024 21:21:40 Tests considered The following testing was considered but not selected: Considered pelvic ultrasound but ultimately deferred as the patient has a hCG serum of less than 2 her pain is more right lower abdomen rather than right pelvis. She has no vaginal bleeding or discharge. Discharge Plan Discharge Clinical Impression: Abdominal pain Patient Disposition: Home, Self-Care Instructions: Abdominal Pain (ED) Additional Instructions: Your CT scan did not show any concerning findings to explain your abdominal pain. Your appendix was within normal limits. Your blood hormone was undetectable I recommend a bland diet for the next couple of days but you are no longer nauseous. Follow up with your primary doctor, return for new or worsening symptoms Prescriptions: No Action Dupixent Pen 300 mg/2 mL pen injector 300 mg subcut Q2W Qty: 4 12RF budesonide-formoterol [Symbicort] 80-4.5 mcg/actuation HFA aerosol inhaler 1 puff inhalation BID Qty: 10.2 12RF Atrovent HFA 17 mcg/actuation HFA aerosol inhaler 2 puff inhalation TID Qty: 12.9 5RF ibuprofen 400 mg tablet 400 mg PO Q6H PRN (Reason: pain) Qty: 14 0RF acetaminophen 500 mg capsule 1,000 mg PO Q8H PRN (Reason: fever or pain) Qty: 14 0RF Trintellix 10 mg tablet 10 mg PO DAILY nicotine 21 mg/24 hr patch 24 hour 1 patch transdermal Q24H Qty: 28 2RF propranolol 10 mg tablet PO BID ProAir RespiClick 90 mcg/actuation aerosol powdr breath activated 2 inh inhalation Q4-6H PRN (Reason: shortness of breath or wheezing) Qty: 1 6RF albuterol sulfate 0.63 mg/3 mL solution for nebulization 0.63 mg inhalation Q4-6H PRN (Reason: shortness of breath or wheezing) Qty: 75 3RF omeprazole 40 mg capsule,delayed release(DR/EC) 40 mg PO DAILY Qty: 90 2RF cetirizine [Allergy Relief (cetirizine)] 10 mg tablet 20 mg PO DAILY 90 Days Qty: 180 2RF aripiprazole [Abilify] 2 mg tablet 2 mg PO DAILY ibuprofen 800 mg tablet 800 mg PO Q8H PRN (Reason: pain) Qty: 30 2RF urea 20 % cream 1 appl topical DAILY Qty: 85 3RF Print Language: Estonian
[2024-12-03 17:41] LABS: MANUAL DIFF FLAG NO
[2024-12-03 17:54] LABS: Hematocrit 38.7 % (37.0-47.0); Hemoglobin 12.4 g/dl (12.0-16.0); Imm Gran Abs Auto 0.09 X10*3/uL (0.00-0.03); Imm Gran Pct Auto 1.0 % (0.0-0.4); Lymphocytes Absolute Auto 2.5 X10*3/uL (1.2-4.9); Mean Corpuscular HGB Conc 32.0 g/dl (31.0-35.0); Mean Corpuscular Hemoglobin 26.3 pg (27.0-33.0); Mean Corpuscular Volume 82.2 fL (80.0-98.0); NRBC Abs Auto 0.020 X10*3/uL (0.0-0.012); NRBC Pct Auto 0.2 /100WBC (0.0-0.2); Platelet Count 352 X10*3/uL (160-400); Red Blood Count 4.71 X10*6/uL (4.20-5.50); White Blood Count 9.1 X10*3/uL (4.8-10.8)
[2024-12-03 18:13] LABS: Alanine Aminotransferase 29 U/L (0-31); Albumin Level 4.5 g/dL (3.5-5.0); Alkaline Phosphatase 94 U/L (39-117); Anion Gap 12 (12-20); Aspartate Amino Transferase 31 U/L (5-31); Blood Urea Nitrogen 9 mg/dL (9-16); Calcium 9.3 mg/dL (8.4-10.2); Carbon Dioxide 24 mmol/L (22-29); Chloride 107 mmol/L (96-108); Creatinine Clr Calc Pharmacy 108.5; Estimated Glomerular Filt Rate > 60; Lipase 16 U/L (8-78); Magnesium 2.0 mg/dL (1.6-2.6); Potassium 4.2 mmol/L (3.3-5.1); Sodium 139 mmol/L (135-145); Total Protein 7.2 g/dL (6.5-8.0)
[2024-12-03] MEDS: iohexoL 350 MG/ML 100 ML INFUS..BTL IV (20:29)
[2024-12-03 22:31] VITALS: BP 128/85; PULSE 79; RESP 16; TEMP 36.7; O2SAT 97
== END 2024-12-03 22:31 | disposition home or self-care (01) ==
PROVIDERS: Physician Assistant Medical; Emergency Provider Student in an Organized Health Care Education/Training Program; PCP Nurse Practitioner Family
DX: R10.31 Right lower quadrant pain (principal); R11.0 Nausea; J45.909 Unspecified asthma, uncomplicated; Z79.899 Other long term (current) drug therapy
CPT/HCPCS: 36415; 74177; 80053; 83690; 83735; 84702; 85025; 99284; 99285; Q9967

== ENCOUNTER → 2024-12-03 19:26 | Outpatient (BNV) | payer OTHER, SELFPAY | PROVIDERS: Emergency Provider Student in an Organized Health Care Education/Training Program; PCP Nurse Practitioner Family; Visit Provider Radiology Diagnostic Radiology | DX: R10.31 Right lower quadrant pain (principal) | CPT/HCPCS: 74177 ==

== ENCOUNTER 2024-12-29 09:31 | Outpatient (AMB) | payer OTHER, SELFPAY ==
--- NOTE | 2024-12-29 09:37 | A.OFFVIS_ITS ---
Vital Signs 12/29/24 09:42 Height 5 ft 5 in Weight 185 lb BMI 30.8 Intake Visit Reasons: F/U B/L feet pain/corns & callositites/Xray Intake Note: Kailey is a 39 year old female who presents today for a follow up on her bilateral feet pain, corn and callosities. Pt reports the pain had subsided and it returned two days ago. She states she has been using the prescribed cream and found that it has been helping relieve her symptoms Allergies Sulfa (Sulfonamide Antibiotics) (SULFA(SULFONAMIDE ANTIBIOTICS)) Allergy (Severe, Verified 12/29/24 09:42) SHORTNESS OF BREATH, SWELLING ALL OVER, anaphylaxis bee pollen (BEE STINGS) Allergy (Unknown, Verified 12/29/24 09:42) SWELLING mushroom (MUSHROOM) Allergy (Unknown, Verified 12/29/24 09:42) ANAPHYLAXIS cat dander Adverse Reaction (Verified 12/29/24 09:42) Rash dog dander Adverse Reaction (Verified 12/29/24 09:42) Rash shell fish Allergy (Severe, Uncoded 12/03/24 16:55) Anaphylaxis RAISIN Allergy (Intermediate, Uncoded 12/03/24 16:55) HIVES, THROAT SWELLING bees Allergy (Unknown, Uncoded 12/03/24 16:55) anaphylaxis mushrooms Allergy (Unknown, Uncoded 12/03/24 16:55) anaphylaxis raisins Allergy (Unknown, Uncoded 12/03/24 16:55) anaphylaxis HPI HPI F/U B/L feet pain/corns & callositites/Xray: Details: Patient is a 38-year-old female returns for painful lesions on the bottom of her feet. She has been applying the urea cream nightly which she states helps. She has not received her x-rays. Lesions have been present for several years. 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[facility] Medical History (Updated 12/04/24 @ 00:01 by Roxane Edwards) Left wrist pain Fracture of fifth metacarpal bone of left hand Depression Anxiety Acid reflux delivery delivered Asthma Surgical History Tubal ligation status Family History Father Alcohol abuse Brother FH: mental illness Sister FH: mental illness Lymphoma Mother Asthma Social History Housing: House Alcohol intake: current Alcohol intake frequency: holidays/special occasions only Patient Tobacco Use Status: Current everyday Tobacco user Tobacco use type: Cigarette Cigarettes Per Day: 10 Years Smoked: started around age 25, 0.5PPD, e-Cigarette/Vaping Use: Never Used Substance Use Type: Marijuana service: No Current occupational status: unemployed Current occupation: right hand dominant Current occupational exposures/hazards: No Cognitive needs: No Hearing needs: No Vision needs: Yes Review of Systems Const All systems reviewed & are unremarkable except as noted in HPI and below Physical Exam Vital Signs: BMI result Body Mass Index 30.8 Extrem Other: *Bilateral Lower Extremity Focused Exam Vascular: dp/pt 2/4, CFT<3s to digits, tg warm to cool, no pedal edema. Derm: Hyperkeratotic lesion with no pinpoint bleeding submet-3/4 region right foot. Right hallux pinch callus. Left medial arch 0.1cm x 0.1cm lesion with epithelial borders, red-brown pigmented lesion. Neuro: Protective sensation grossly intact to bilateral lower extremities. MSK: Mild tenderness on palpation of right foot sub-met-3/4 region. No flexion contracture of digits. Moderate arch foot type. Office Procedures AMB Debridement/Avulsion Podia Details: Procedure: Callus debridement Location: Right foot Anesthesia: N/A Description: The affected area was cleansed with an antiseptic solution. Using a sterile #15 blade, the hyperkeratotic tissue was radially debrided from the foot. All callused tissue was removed down to normal skin without causing bleeding or discomfort. The area was inspected for underlying ulceration or infection. Patient tolerated the procedure well. No complications noted. Tolerance: Patient tolerated procedure well, no immediate complications. [id number] of Callus (1) Procedure code (CPT) selection complete AMB Wart Destruction Podiatry Details of Procedure: Procedure: Wart destruction Location: Left foot Anesthesia: N/A Description: The affected area was cleansed with an antiseptic solution. Using a sterile #15 blade, the hyperkeratotic tissue was radially debrided from the foot. Next, salicylic acid was applied using an applicator to the wart, and occluded using a band-aid. Tolerance: Patient tolerated procedure well, no immediate complications. 98230 - Wart Destruction (<15) Procedure code (CPT) selection complete Office Meds salicylic acid 27.5 % topical film-forming liquid Performing Provider: Jayme Christina DPM Performing Location: [facility] [place] [facility] Administered by: Jayme Christina DPM on 12/29/24 10:05 Dose Route Admin Location Dispensed Lot Number Expiration Date [facility] Statistician Applied 1 appl topical 10 mL [id number] [employer] EFDERIC[employer] MACE Assessment & Plan Assessment & Plan (1) Metatarsalgia, right foot: Code(s): M77.41 - Metatarsalgia, right foot Category: Medical (2) [place] of foot: Comment: Right submet 3/4 region, right medial hallux, left plantar medial arch Code(s): L84 - Corns and callosities Category: Medical Plan: * Rx urea cream 40% * Debrided right foot lesion using a #15 Blade. * Recommended using a corn/callus pad. (3) Plantar wart of left foot: Code(s): B07.0 - Plantar wart Category: Medical Plan: * Applied salicylic acid to left foot. Plan * Discussed possible hypertrophied versus elongated metatarsal bone(s), which can only be evaluated with a x-ray. * She was referred for a right foot x-ray three views. * Recommended supportive shoe-wear to maintain cushioning and balancing of her foot to decrease abnormal loading of the forefoot. May prescribe a foot orthosis at next visit. Orders: Orders AMB Debridement/Avulsion Podiatry Today B07.0 - Plantar wart, L84 - Corns and callosities AMB Wart Destruction Podiatry Today B07.0 - Plantar wart Medications: New urea 37.5% Applied to the bottom of right foot daily. 1 appl topical BID 142 grams 3RF callus L84 - Corns and callosities Coding Level of Care Code Est Pt Level 3 (91079) Diagnoses Metatarsalgia, right foot M77.41 [place] of foot L84 Plantar wart of left foot B07.0 CPT Codes Skin Debridement - CPT: 57984-Mvcuezeciyu of Callus (1) ([id number]) Destruction of Wart - CPT: 57626 - Wart Destruction (<15) ([id number]) Time Spent (min) 30
[2024-12-29 09:42] VITALS: BMI 30.8
== END 2024-12-29 10:00 | disposition home or self-care (01) ==
LOC: HO.HPODS 09:31
PROVIDERS: PCP Nurse Practitioner Family; Visit Provider Student in an Organized Health Care Education/Training Program
DX: M77.41 Metatarsalgia, right foot (principal); L84 Corns and callosities; B07.0 Plantar wart
CPT/HCPCS: 11055; 17110; 99213

== ENCOUNTER → 2024-12-29 09:31 | Outpatient (BNVA) | payer OTHER, SELFPAY | PROVIDERS: PCP Nurse Practitioner Family; Visit Provider Student in an Organized Health Care Education/Training Program | DX: L84 Corns and callosities (principal); B07.0 Plantar wart; M77.41 Metatarsalgia, right foot | CPT/HCPCS: 11055; 17110; 99212 ==

== ENCOUNTER 2025-01-22 08:29 | Outpatient (AMB) | payer OTHER, SELFPAY ==
--- NOTE | 2025-01-22 08:41 | A.OFFVIS_ITS ---
Intake Visit Reasons: F/U B/L feet pain/corns & callositites/Xray Intake Note: Kailey is a 39 year old female who presents today for a follow up on her bilateral feet pain and corn and callosities. During her last visit a wart destruction of her left foot was performed. Patient states she currently has no pain in her foot and has been doing well. Allergies Sulfa (Sulfonamide Antibiotics) (SULFA(SULFONAMIDE ANTIBIOTICS)) Allergy (Severe, Verified 12/29/24 09:42) SHORTNESS OF BREATH, SWELLING ALL OVER, anaphylaxis bee pollen (BEE STINGS) Allergy (Unknown, Verified 12/29/24 09:42) SWELLING mushroom (MUSHROOM) Allergy (Unknown, Verified 12/29/24 09:42) ANAPHYLAXIS cat dander Adverse Reaction (Verified 12/29/24 09:42) Rash dog dander Adverse Reaction (Verified 12/29/24 09:42) Rash shell fish Allergy (Severe, Uncoded 12/03/24 16:55) Anaphylaxis RAISIN Allergy (Intermediate, Uncoded 12/03/24 16:55) HIVES, THROAT SWELLING bees Allergy (Unknown, Uncoded 12/03/24 16:55) anaphylaxis mushrooms Allergy (Unknown, Uncoded 12/03/24 16:55) anaphylaxis raisins Allergy (Unknown, Uncoded 12/03/24 16:55) anaphylaxis HPI HPI F/U B/L feet pain/corns & callositites/Xray: Details: Patient is a 38-year-old female returns for painful lesions on the bottom of her feet. She has been applying the urea cream nightly which she states helps. She has not received her x-rays. Lesions have been present for several years. 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[facility] Medical History (Updated 12/04/24 @ 00:01 by Roxane Edwards) Left wrist pain Fracture of fifth metacarpal bone of left hand Depression Anxiety Acid reflux delivery delivered Asthma Surgical History Tubal ligation status Family History Father Alcohol abuse Brother FH: mental illness Sister FH: mental illness Lymphoma Mother Asthma Social History Housing: House Alcohol intake: current Alcohol intake frequency: holidays/special occasions only Patient Tobacco Use Status: Current everyday Tobacco user Tobacco use type: Cigarette Cigarettes Per Day: 10 Years Smoked: started around age 25, 0.5PPD, e-Cigarette/Vaping Use: Never Used Substance Use Type: Marijuana service: No Current occupational status: unemployed Current occupation: right hand dominant Current occupational exposures/hazards: No Cognitive needs: No Hearing needs: No Vision needs: Yes Review of Systems Const All systems reviewed & are unremarkable except as noted in HPI and below Physical Exam Extrem Other: *Bilateral Lower Extremity Focused Exam Vascular: dp/pt 2/4, CFT<3s to digits, tg warm to cool, no pedal edema. Derm: Hyperkeratotic lesion with no pinpoint bleeding submet-3/4 region right foot. Right hallux pinch callus. Left medial arch 0.1cm x 0.1cm lesion with epithelial borders, red-brown pigmented lesion. Neuro: Protective sensation grossly intact to bilateral lower extremities. MSK: Mild tenderness on palpation of right foot sub-met-3/4 region. No flexion contracture of digits. Moderate arch foot type. Assessment & Plan Assessment & Plan (1) Metatarsalgia, right foot: Code(s): M77.41 - Metatarsalgia, right foot Category: Medical Plan: * Discussed possible hypertrophied versus elongated metatarsal bone(s), which can only be evaluated with a x-ray. * She was referred for a right foot x-ray three views. She was instructed to get her x-rays for further evaluation. * Recommended supportive shoe-wear to maintain cushioning and balancing of her foot to decrease abnormal loading of the forefoot. May prescribe a foot orthosis at next visit. (2) [place] of foot: Comment: Right submet 3/4 region, right medial hallux, left plantar medial arch Code(s): L84 - Corns and callosities Category: Medical Plan: * Continue urea cream 20% * Debrided bilateral feet lesion using a #15 Blade. * Applied offloading U-pad. Orders: Orders AMB Debridement/Avulsion Podiatry Today L84 - Corns and callosities Coding Level of Care Code Est Pt Level 2 (44846) Diagnoses Metatarsalgia, right foot M77.41 [place] of foot L84 Time Spent (min) 15
== END 2025-01-22 08:54 | disposition home or self-care (01) ==
LOC: HO.HPODS 08:29
PROVIDERS: PCP Nurse Practitioner Family; Visit Provider Student in an Organized Health Care Education/Training Program
DX: M77.41 Metatarsalgia, right foot (principal); L84 Corns and callosities
CPT/HCPCS: 99212

== ENCOUNTER → 2025-01-22 08:29 | Outpatient (BNVA) | payer OTHER, SELFPAY | PROVIDERS: PCP Nurse Practitioner Family; Visit Provider Student in an Organized Health Care Education/Training Program | DX: L84 Corns and callosities (principal); M77.41 Metatarsalgia, right foot | CPT/HCPCS: 99212 ==

== ENCOUNTER 2025-02-23 10:35 | Outpatient (AMB) | payer OTHER, SELFPAY ==
[2025-02-23 10:55] VITALS: BP 124/60; PULSE 101; O2SAT 99; BMI 32.8
--- NOTE | 2025-02-23 10:55 | AM.OFFWIN_ITS ---
Intake Vital Signs 02/23/25 10:55 Height 5 ft 5 in Weight 197 lb BMI 32.8 BP 124/60 Blood Pressure Location Lt brachial Position Sitting Pulse 101 H Pulse Source Pulse Oximeter Pulse Oximetry (%) 99 Oxygen Delivery Method Room Air Intake Visit Reasons: EP Right hand swelling, lump on right hand Intake Note: Patient presents c/o right hand swelling x3 weeks. Patient also mentions painful lump in right ring finger x2 weeks. Patient Tobacco Use Status: Current everyday Tobacco user Allergies Sulfa (Sulfonamide Antibiotics) (SULFA(SULFONAMIDE ANTIBIOTICS)) Allergy (Severe, Verified 02/23/25 10:58) SHORTNESS OF BREATH, SWELLING ALL OVER, anaphylaxis bee pollen (BEE STINGS) Allergy (Unknown, Verified 02/23/25 10:58) SWELLING mushroom (MUSHROOM) Allergy (Unknown, Verified 02/23/25 10:58) ANAPHYLAXIS cat dander Adverse Reaction (Verified 02/23/25 10:58) Rash dog dander Adverse Reaction (Verified 02/23/25 10:58) Rash shell fish Allergy (Severe, Uncoded 02/23/25 10:58) Anaphylaxis RAISIN Allergy (Intermediate, Uncoded 02/23/25 10:58) HIVES, THROAT SWELLING bees Allergy (Unknown, Uncoded 02/23/25 10:58) anaphylaxis mushrooms Allergy (Unknown, Uncoded 02/23/25 10:58) anaphylaxis raisins Allergy (Unknown, Uncoded 02/23/25 10:58) anaphylaxis Do you need a note to return to daycare/school/sports/work: Yes HPI HPI Comments History of Present Illness Details History of Present Illness - The patient is a 39 year old individua l presenting with right hand pain and swelling which started approximately three weeks ago. 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 - She is right hand dominant. - The patient reports a palpable nodule on the hand, with pain upon pressure. - The patient is unable to fully extend one finger, which gets stuck, and making a fist is painful. - Additionally, the patient sometimes ex periences wrist pain and feels the hand wants to give out. - The patient's hand is more swollen upo n waking, particularly after sleeping on it. - The patient reports intermittent numbn ess and tingling in the hand and recalls one episode where the entire hand went numb and tingly. - The patient has been taking ibuprofen for the pain without significant relief. - She has increased her duties at work a s cook. - She denies any trauma or falls. - She denies any arm pain or shoulder pa in. Physical Exam General: Cooperative, healthy appearing, comfortable, no acute distress and well developed Orientation: Patient oriented x3 Limitations: No limitations Respiratory: Normal respiratory effort and able to speak in complete sentences. Clear to auscultation bilaterally Cardiovascular: Regular rate and rhythm. Normal S1 and S2 Skin: no rashes or lesions noted Neuro: Sensation is intact. Extremities: No deformities noted on the right. No erythema or swelling noted to the hand. TTP of the MCP joint on the palmar aspect of the 4th digit. No nodules noted. Flexion and extension of the digits on the right hand. 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 FROM of the right wrist. Negative Tinel's and Phalen's noted. Negative Finklesteins noted. Patient was informed and verbally consented to the use of an ambient scribe for clinic note documentation during this visit. [facility] Medical History (Updated 12/04/24 @ 00:01 by Roxane Edwards) Left wrist pain Fracture of fifth metacarpal bone of left hand Depression Anxiety Acid reflux delivery delivered Asthma Surgical History Tubal ligation status Family History Father Alcohol abuse Brother FH: mental illness Sister FH: mental illness Lymphoma Mother Asthma Social History Housing: House Alcohol intake: current Alcohol intake frequency: holidays/special occasions only Patient Tobacco Use Status: Current everyday Tobacco user Tobacco use type: Cigarette Cigarettes Per Day: 10 Years Smoked: started around age 25, 0.5PPD, e-Cigarette/Vaping Use: Never Used Substance Use Type: Marijuana service: No Current occupational status: unemployed Current occupation: right hand dominant Current occupational exposures/hazards: No Cognitive needs: No Hearing needs: No Vision needs: Yes Review of Systems Const All systems reviewed & are unremarkable except as noted in HPI and below Physical Exam Vital Signs: Last Vital Signs Pulse 101 H 02/23/25 10:55 BP 124/60 12/01/25 10:55 Pulse Ox 99 02/23/25 10:55 Oxygen Delivery Method Room Air 02/23/25 10:55 BMI result Body Mass Index 32.8 Results Reviewed Results Reviewed: will review the x-ray in the office Assessment & Plan Assessment & Plan (1) Right hand pain: Code(s): M79.641 - Pain in right hand Plan Most likely arthritis vs trigger finger vs tendonitis vs strain plan - The patient presents with right hand pain, swelling, and a palpable nodule, with symptoms worsening over three weeks, possibly related to the patient's occupation as a cook. - rest, ice and elevation - naproxen BID for pain - An X-ray of the right hand will be ordered to evaluate for underlying bony pathology. - Consider trial of a hand splint for symptomatic relief. - A referral to orthopedics will be placed for further evaluation and potential intervention, such as an injection for suspected trigger finger. Orders: Orders XR hand RT min 3V Today M79.641 - Pain in right hand Referrals Orthopedics Referral M79.641 - Pain in right hand Coding Level of Care Code Est Pt Level 4 (55448) Diagnoses Right hand pain M79.641
== END 2025-02-23 11:43 | disposition home or self-care (01) ==
PROVIDERS: PCP Nurse Practitioner Family; Visit Provider Physician Assistant Medical
DX: M79.641 Pain in right hand (principal)

== ENCOUNTER 2025-02-23 10:35 | Outpatient (REF) | payer OTHER, SELFPAY ==
--- NOTE | ~2025-02-23 | XR_ITS ---
EXAMINATION: XR HAND, RIGHT CLINICAL INFORMATION: M79.641 - Pain in right hand COMPARISON: None available. TECHNIQUE: PA, lateral, and oblique views of the right hand. FINDINGS: No acute fracture, dislocation or suspicious bony lesion is identified No significant arthritic change or erosions. No significant soft tissue swelling. No radiopaque foreign body. XR/XR hand RT min 3V IMPRESSION: No radiographic evidence of acute osseous findings. Electronically signed by: Zak Mahoney MD 02/23/2025 11:54 AM [facility]
== END 2025-02-23 10:36 | disposition home or self-care (01) ==
LOC: HO.HMGCX 10:35
PROVIDERS: PCP Nurse Practitioner Family; Visit Provider Physician Assistant Medical
DX: M79.641 Pain in right hand (principal); M79.89 Other specified soft tissue disorders
CPT/HCPCS: 73130; 99212

== ENCOUNTER 2025-02-27 09:04 | Outpatient (REF) | payer OTHER, SELFPAY ==
--- NOTE | ~2025-02-27 | XR_ITS ---
EXAMINATION: XR FOOT 3 OR MORE VIEWS RIGHT HISTORY: M77.41 - Metatarsalgia, right foot COMPARISON: There is an is made with the prior examination dated 12/27/2020. FINDINGS: Three views of the right foot are submitted. Osseous mineralization is normal. There is no fracture or dislocation. The joint spaces are preserved. The soft tissues are unremarkable. XR/XR foot RT min 3V IMPRESSION: Unremarkable examination of the right foot. Electronically signed by: Andi Rust MD 02/27/2025 09:26 AM [facility]
== END 2025-02-27 09:05 | disposition home or self-care (01) ==
LOC: HO.HMGCX 09:04
PROVIDERS: PCP Nurse Practitioner Family; Visit Provider Student in an Organized Health Care Education/Training Program
DX: M77.41 Metatarsalgia, right foot (principal)
CPT/HCPCS: 73630

== ENCOUNTER → 2025-02-27 09:13 | Outpatient (BNV) | payer OTHER, SELFPAY | PROVIDERS: PCP Nurse Practitioner Family; Visit Provider Radiology Diagnostic Radiology | DX: M77.41 Metatarsalgia, right foot (principal) | CPT/HCPCS: 73630 ==

== ENCOUNTER 2025-03-03 09:52 | Outpatient (AMB) | payer OTHER, SELFPAY ==
[2025-03-03 09:54] VITALS: BMI 32.8
--- NOTE | 2025-03-03 09:54 | MHC.OFFVIS ---
Vital Signs 03/03/25 09:54 Height 5 ft 5 in Weight 197 lb BMI 32.8 Intake Visit Reasons: 3 wks fu Intake Note: Kailey is a 39 year old female who presents today for a 3 week follow up. Patient states she is doing well with no further concerns at this time. Allergies Sulfa (Sulfonamide Antibiotics) (SULFA(SULFONAMIDE ANTIBIOTICS)) Allergy (Severe, Verified 03/03/25 09:58) SHORTNESS OF BREATH, SWELLING ALL OVER, anaphylaxis bee pollen (BEE STINGS) Allergy (Unknown, Verified 03/03/25 09:58) SWELLING mushroom (MUSHROOM) Allergy (Unknown, Verified 03/03/25 09:58) ANAPHYLAXIS cat dander Adverse Reaction (Verified 03/03/25 09:58) Rash dog dander Adverse Reaction (Verified 03/03/25 09:58) Rash shell fish Allergy (Severe, Uncoded 02/23/25 10:58) Anaphylaxis RAISIN Allergy (Intermediate, Uncoded 02/23/25 10:58) HIVES, THROAT SWELLING bees Allergy (Unknown, Uncoded 02/23/25 10:58) anaphylaxis mushrooms Allergy (Unknown, Uncoded 02/23/25 10:58) anaphylaxis raisins Allergy (Unknown, Uncoded 02/23/25 10:58) anaphylaxis HPI HPI 3 wks fu: Details: Patient is a 38-year-old female returns for painful lesions on the bottom of her feet. She has been applying the urea cream nightly which she states helps. She received her x-rays. Lesions have been present for several years. 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[facility] Medical History (Updated 12/04/24 @ 00:01 by Roxane Edwards) Left wrist pain Fracture of fifth metacarpal bone of left hand Depression Anxiety Acid reflux delivery delivered Asthma Surgical History Tubal ligation status Family History Father Alcohol abuse Brother FH: mental illness Sister FH: mental illness Lymphoma Mother Asthma Social History Housing: House Alcohol intake: current Alcohol intake frequency: holidays/special occasions only Patient Tobacco Use Status: Current everyday Tobacco user Tobacco use type: Cigarette Cigarettes Per Day: 10 Years Smoked: started around age 25, 0.5PPD, e-Cigarette/Vaping Use: Never Used Substance Use Type: Marijuana service: No Current occupational status: unemployed Current occupation: right hand dominant Current occupational exposures/hazards: No Cognitive needs: No Hearing needs: No Vision needs: Yes Review of Systems Const All systems reviewed & are unremarkable except as noted in HPI and below Physical Exam Vital Signs: BMI result Body Mass Index 32.8 Extrem Other: *Bilateral Lower Extremity Focused Exam Vascular: dp/pt 2/4, CFT<3s to digits, tg warm to cool, no pedal edema. Derm: Hyperkeratotic lesion with no pinpoint bleeding submet-3/4 region right foot. Right hallux pinch callus. Left medial arch 0.1cm x 0.1cm lesion with epithelial borders, red-brown pigmented lesion. Neuro: Protective sensation grossly intact to bilateral lower extremities. MSK: NO tenderness on palpation of right foot sub-met-3/4 region. No flexion contracture of digits. Moderate arch foot type. Office Procedures AMB Debridement /Avulsion Details: Procedure: Callus debridement Location: 1 lesion right plantar foot Anesthesia: N/A Description: The affected area was cleansed with an antiseptic solution. Using a sterile #15 blade, the hyperkeratotic tissue was radially debrided from the foot. All callused tissue was removed down to normal skin without causing bleeding or discomfort. The area was inspected for underlying ulceration or infection. Patient tolerated the procedure well. No complications noted. Tolerance: Patient tolerated procedure well, no immediate complications. [id number] of Callus (1) Procedure code (CPT) selection complete Results Reviewed Results Reviewed: X-ray Read: 02/27/2025 X-ray right foot 3 views (AP, MO, Lateral) reviewed which shows elongated 2nd, 3rd, and 4th metatarsals. No fractures. I personally reviewed the imaging and my findings are listed above. Assessment & Plan Assessment & Plan (1) Metatarsalgia, right foot: Code(s): M77.41 - Metatarsalgia, right foot Category: Medical Plan: Reviewed right foot x-rays which show elongated metatarsal bone(s). Due to improvement in her symptoms, recommend conservative care at this point. The patient may opt for shortening metatarsal osteotomies in the future if her symptoms are not improved. (2) [place] of foot: Comment: Right submet 3/4 region, right medial hallux, left plantar medial arch Code(s): L84 - Corns and callosities Category: Medical Plan: Continue urea cream 20% Debrided bilateral feet lesion using a #15 Blade. Follow up in 2 months Coding Level of Care Code Est Pt Level 3 (10942) Diagnoses Metatarsalgia, right foot M77.41 [place] of foot L84 Time Spent (min) 25
== END 2025-03-03 10:19 | disposition home or self-care (01) ==
LOC: HO.HPODS 09:53
PROVIDERS: PCP Nurse Practitioner Family; Visit Provider Student in an Organized Health Care Education/Training Program
DX: M77.41 Metatarsalgia, right foot (principal); L84 Corns and callosities
CPT/HCPCS: 99213

== ENCOUNTER → 2025-03-03 09:52 | Outpatient (BNVA) | payer OTHER, SELFPAY | PROVIDERS: PCP Nurse Practitioner Family; Visit Provider Student in an Organized Health Care Education/Training Program | DX: L84 Corns and callosities (principal); M77.41 Metatarsalgia, right foot | CPT/HCPCS: 11055; 99212 ==